=== PATIENT | male | born 2000 | race Hispanic/Latino ===

== ENCOUNTER 2025-02-16 11:14 | Inpatient (IN) | payer SELFPAY ==
--- OUTSIDE RECORDS SUMMARY | 2025-02-16 11:20 | XMS REPORT | Continuity of Care Document ---
Author Name Unknown Address [address] [facility] [address] [place] [address] [facility] Address [address] [facility] [address] [place] [address] Care Team Providers Care Slip Tender Name Role Phone Shawn Roa Attending Clinician Unavailable Arturo Carney Attending Clinician UnavailRik López Attending Clinician UnavailCiarra Vincent Attending Clinician Unavailable Noreen Vang Attending Clinician Unavailable Asif Betancourt Attending Clinician Unavailable Blanka Adams Attending Clinician Unavailable Arnav Martínez Attending Clinician Unavailable Physician, No Primary or Family Admitting Clinic evelyn Unavailable Payers Payer Name Policy Type Policy Number Effective Date Expirati on Date Source Allergies, Adverse Reactions, Alerts Allergy Name Allergy Type Status Severity Reaction(s) Onset Date Inactive Date Treating Clinician Comments Source No Known Allergie s DA Active U 02-21 00:00: 00 [facility] No Known Allergie s DA Active U 02-08 00:00: 00 [facility] No Known Allergie s DA Active U 2- 00:00: 00 [facility] No Known Allergie s DA Active U 0 8 00:00: 00 [facility] No Known Allergie s DA Active U 12-19 00:00: 00 [facility] No Known Allergie s DA Active U 10-29 00:00: 00 [facility] Social History Social Habit Start Date Stop Date Quantity Comments Source Sexual orientation [facility] Sex 2025-02-01 20:29:34 2025-02-01 20:29:34 Male (finding) [facility] Sex assigned at 2000 00:00:00 2000 00:00:00 [facility] Procedures Procedure Date / Time Performed Performing Clinicia n Source WOUND CULTURE + GRAM STAIN 2025-02-02 10:10:00 [facility] BLOOD CULTURE 2025-02-01 12:45:00 [facility] BLOOD CULTURE 2025-02-01 12:30:00 [facility] Encounters Start Date/Time End Date/Time Encounter Type Admission Type Attending [facility] Care Facility Care Department Encounter ID Source 2023-05-21 12:41:00 [id number] [facility] 2023-05-21 12:41:00 [facility] [id number] [facility] 2020-06-28 08:07:00 Inpatient [facility] [id number] [facility] 2020-02-13 23:40:00 Inpatient [facility] ER [id number] [facility] 2020-01-09 14:04:00 Inpatient [facility] ER [id number] [facility] 2025-02-02 00:00:00 2025-02-02 00:00:00 Lab Requisitio n [facility] [id number] [facility] 2025-02-01 00:00:00 2025-02-01 00:00:00 Lab Requisitio n [facility] [id number] [facility] 2025-02-01 00:00:00 2025-02-01 00:00:00 Lab Requisitio n [facility] [id number] [facility] 2024-12-13 22:13:00 2024-12-13 23:35:00 Emergency EM Rik Sneed [facility] ER [id number] [facility] 2024-02-15 11:11:00 2024-02-15 14:23:00 Emergency EM Ciarra Locke [facility] ER [id number] [facility] 2023-11-13 20:34:00 2023-11-13 22:48:00 Emergency EM Shawn Roa [facility] ER [id number] [facility] 2023-08-31 16:42:00 2023-08-31 18:39:00 Emergency EM Noreen Vang [facility] ER [id number] [facility] 2022-02-21 08:50:00 2022-02-21 09:58:00 Emergency EM Arturo Carney [facility] ER [id number] [facility] 2022-02-08 17:51:00 2022-02-08 18:32:00 Emergency EM Shawn Roa [facility] ER [id number] [facility] 2021-01-18 17:29:00 2021-01-18 19:45:00 Emergency EM Asif Betancourt [facility] ER [id number] [facility] 2020-11-16 18:01:00 2020-11-16 20:40:00 Emergency EM Blanka Adams [facility] ER [id number] [facility] 2020-11-15 05:54:00 2020-11-15 06:26:00 Emergency EM Arnav Martínez [facility] ER [id number] [facility] Results Test Description Test Time Test Comments Results Result Co mments Source Blood [id number] 03:01:05* Test Item Value Reference Range Interpretation Comme nts Result (test code = 6463-4) No growth in 5 days Lab Interpretation (test code = 37586-7) [id number] 03:01:05* Test Item Value Reference Range Interpretation Comme nts CULTURE (BEAKER) (test code = 1095) No growth in 5 days WOUND CULTURE + GRAM [id number] 11:08:20* Test Item Value Reference Range Interpretation Comments CULTURE (BEAKER) (test code = 1095) STAPHYLOCOCCUS AUREUS A 2+ Staphylococcus aureus Clindamycin (test code = 10) S Erythromycin (test code = 4) S Linezolid (test code = 40) S Nitrofurantoin (test code = 23) S Oxacillin (test code = 14) S Rifampin (test code = 43) S Tetracycline (test code = 2) S Trimethoprim + Sulfamethoxazole (test code = 47) S Vancomycin (test code = 13) S GRAM STAIN RESULT (BEAKER) (test code = 1123) <1+ WBCs GRAM STAIN RESULT (BEAKER) (test code = 656351) No organisms seen UA RFLX MICROSCOPIC [id number] 13:17:00* Test Item Value Reference Range Interpretation Comme nts UA COLOR (test code = COLU) YELLOW YELLOW UA APPEARANCE (test code = APPU) CLEAR CLEAR UA GLUCOSE DIPSTICK (test code = DGLUU) NEGATIVE mg/dL NEGATIVE UA BILIRUBIN DIPSTICK (test code = BILU) NEGATIVE NEGATIVE UA KETONE DIPSTICK (test code = KETU) NEGATIVE mg/dL NEGATIVE UA SPECIFIC GRAVITY (test code = SGU) 1.005 1.001-1.035 N UA BLOOD DIPSTICK (test code = DOMINICK) NEGATIVE NEGATIVE UA PH DIPSTICK (test code = TANIKA) 8.0 5.5-7.0 H UA PROTEIN DIPSTICK (test code = PROU) NEGATIVE mg/dL NEGATIVE UA UROBILINOGEN DIPSTICK (test code = URO) NORMAL mg/dL NORMAL UA NITRITE DIPSTICK (test code = SHANNA) NEGATIVE NEGATIVE UA LEUKOCYTE ESTERASE DIPSTICK (test code = LEUU) NEGATIVE NEGATIVE UA COMMENT (test code = COMU) VOLUME 10-12 ML URINE SPECIMEN DESCRIPTION (test code = UASPEC) Clean Catch UA WBC (test code = WBCU) < 10 #/hpf <10 UA SQUAMOUS CELLS (test code = SQU) 0 - 20 #/lpf <100 UA CULTURE NEEDED? (test code = UACULT) Criteria not met Indication for culture: RiskForSepsis-no oth srcURINE SOURCE: Clean CatchBASIC METABOLIC [id number] 12:39:00* Test Item Value Reference Range Interpretation Comme nts SODIUM (test code = NA) 139 MMOL/L 133-145 N POTASSIUM (test code = K) 4.6 MMOL/L 3.6-5.2 N CHLORIDE (test code = CL) 102 MMOL/L 100-108 N CARBON DIOXIDE (test code = CO2) 24 MMOL/L 22-32 N GLUCOSE (test code = GLU) 97 MG/DL 65-99 N Results of this assay method may be falsely depressed orelevated if patient is taking sulfasalazine. BLOOD UREA NITROGEN (test code = BUN) 13 MG/DL 6-20 N GLOMERULAR FILTRATION RATE (test code = GFR) 114 77-179 N The Glomerular Filtration Rate is a calculated parameterbased on serum Creatinine, patient age and sex. GFR valuesless than 60 mL/min/1.73 square meters are indicative ofChronic Kidney Disease. Values less than 15 mL/min/1.73square meters indicate Kidney failure. The calculation forGFR is based on the CKD-EPI (2020) calculation. This formulais race indifferent and is the recommended formula for GFRby the National Kidney Foundation for Adults.The GFR will not calculate if the sex is unknown or if thepatient's age is <18 years. CREATININE (test code = CREAT) 0.95 MG/DL 0.60-1.00 N CALCIUM (test code = CA) 9.2 MG/DL 8.7-10.5 N CPK-MB [id number] 12:39:00* Test Item Value Reference Range Interpretation Comme nts CK (test code = CKT) 158 Units/L 39-308 N CKMB (test code = CKMBT) < 0.5 NG/ML 0.0-3.6 N CKMB suggestive of non-AMI; MB Index is not reported. CKMB INDEX (test code = CKMBI) % 0.0-2.4 CBC W/AUTO [id number] 12:15:00* Test Item Value Reference Range Interpretation Comme nts WHITE BLOOD CELL (test code = WBC) 10.39 x10 3/uL 4.80-10.80 N RED BLOOD CELL (test code = RBC) 5.84 x10 6/uL 4.7-6.1 N HEMOGLOBIN (test code = HGB) 16.7 G/DL 14.0-17.0 N HEMATOCRIT (test code = HCT) 50.0 % 42-52 N MEAN CELL VOLUME (test code = MCV) 85.6 FL 80-94 N MEAN CELL HGB (test code = MCH) 28.6 PG 27-31 N MEAN CELL HGB CONCENTRATION (test code = MCHC) 33.4 G/DL 33-37 N RED CELL DISTRIBUTION WIDTH (test code = RDW) 13.2 % 11.5-14.5 N PLATELET COUNT (test code = PLT) 257 x10 3/uL 150-450 N MEAN PLATELET VOLUME (test code = MPV) 10.6 FL 7.4-10.4 H NEUTROPHIL % (test code = NT%) 71.7 % 42-86 N LYMPHOCYTE % (test code = LY%) 21.2 % 24-44 L MONOCYTE % (test code = MO%) 6.5 % 0.0-4.0 H EOSINOPHIL % (test code = EO%) 0.4 % 0.0-2.7 N BASOPHIL % (test code = BA%) 0.2 % 0.0-0.5 N NEUTROPHIL # (test code = NT#) 7.45 x10 3/uL 1.8-7.7 N LYMPHOCYTE # (test code = LY#) 2.20 x10 3/uL 1.0-4.8 N MONOCYTE # (test code = MO#) 0.68 x10 3/uL 0.0-0.8 N EOSINOPHIL # (test code = EO#) 0.04 x10 3/uL 0.0-0.5 N BASOPHIL # (test code = BA#) 0.02 x10 3/uL 0.0-0.2 N MANUAL DIFF REQUIRED (test code = MDIFF) AUTODIFF VERIFIED TECH REVIEW Auto Differential verified by tech review of smear. UA RFLX MICROSCOPIC [id number] 23:35:00* Test Item Value Reference Range Interpretation Comme nts UA COLOR (test code = COLU) YELLOW YELLOW UA APPEARANCE (test code = APPU) CLEAR CLEAR UA GLUCOSE DIPSTICK (test code = DGLUU) NEGATIVE mg/dL NEGATIVE UA BILIRUBIN DIPSTICK (test code = BILU) NEGATIVE NEGATIVE UA KETONE DIPSTICK (test code = KETU) 15 mg/dL NEGATIVE A UA SPECIFIC GRAVITY (test code = SGU) 1.025 1.001-1.035 N UA BLOOD DIPSTICK (test code = DOMINICK) NEGATIVE NEGATIVE UA PH DIPSTICK (test code = TANIKA) 5.0 5.5-7.0 L UA PROTEIN DIPSTICK (test code = PROU) 15 mg/dL NEGATIVE A UA UROBILINOGEN DIPSTICK (test code = URO) 1.0 mg/dL NORMAL UA NITRITE DIPSTICK (test code = SHANNA) NEGATIVE NEGATIVE UA LEUKOCYTE ESTERASE DIPSTICK (test code = LEUU) 25 NEGATIVE A UA COMMENT (test code = COMU) VOLUME 10-12 ML URINE SPECIMEN DESCRIPTION (test code = UASPEC) Clean Catch UA WBC (test code = WBCU) < 10 #/hpf <10 UA SQUAMOUS CELLS (test code = SQU) 0 - 20 #/lpf <100 UA CULTURE NEEDED? (test code = UACULT) Criteria not met Indication for culture: Flank PainURINE SOURCE: Clean CatchUA MICROSCOPIC 2023-11-13 23:35:00* Test Item Value Reference Range Interpretation Comme nts UA RBC (test code = RBCU) None Seen #/hpf NONE SEEN Indication for culture: Flank PainURINE SOURCE: Clean CatchDRUG OF ABUSE SCREEN [id number] 21:56:00* Test Item Value Reference Range Interpretation Comments UR COCAINE (test code = COCAU) NEGATIVE NEGATIVE UR MDMA (test code = MDMAQLU) NEGATIVE NEGATIVE UR CANNABINOIDS (test code = CANU) POSITIVE NEGATIVE A If confirmato ry testing required, contact laboratory. UR AMPHETAMINE (test code = AMPHU) NEGATIVE NEGATIVE UR BARBITURATE QUAL (test code = BARBQLU) NEGATIVE NEGATIVE UR BENZODIAZEPINE (test code = BENZU) NEGATIVE NEGATIVE UR OPIATES QUAL (test code = OPIAQLU) NEGATIVE NEGATIVE UR PHENCYCLIDINE (PCP) (test code = PHENCU) NEGATIVE NEGATIVE Urine Drug Abuse Screen provides preliminary results thatmay be confirmed by alternate methods (i.e., GC/MS) at [facility]. Results of screen may not be usedin criminal justice, job performance or professionalcredential review, or infant custody issues. Negative [place] Level ng/ml ----- Cocaine 300 Methamphetamine (Ecstacy) 500 Cannabinoids (THC) 50 Amphetamine 1000 Barbiturates 200 Benzodiazepines 200 Opiates 300 Phencyclidine (PCP) 25 COMPREHENSIVE METABOLIC [id number] 21:56:00* Test Item Value Reference Range Interpretation Comme nts SODIUM (test code = NA) 140 MMOL/L 133-145 N POTASSIUM (test code = K) 3.4 MMOL/L 3.6-5.2 L CHLORIDE (test code = CL) 103 MMOL/L 100-108 N CARBON DIOXIDE (test code = CO2) 29 MMOL/L 22-32 N GLUCOSE (test code = GLU) 107 MG/DL 65-99 H Results of this assay method may be falsely depressed orelevated if patient is taking sulfasalazine. BLOOD UREA NITROGEN (test code = BUN) 12 MG/DL 6-20 N GLOMERULAR FILTRATION RATE (test code = GFR) 97 77-179 N The Glomerular Filtration Rate is a calculated parameterbased on serum Creatinine, patient age and sex. GFR valuesless than 60 mL/min/1.73 square meters are indicative ofChronic Kidney Disease. Values less than 15 mL/min/1.73square meters indicate Kidney failure. The calculation forGFR is based on the CKD-EPI (202) calculation. This formulais race indifferent and is the recommended formula for GFRby the National Kidney Foundation for Adults.The GFR will not calculate if the sex is unknown or if thepatient's age is <18 years. CREATININE (test code = CREAT) 1.09 MG/DL 0.60-1.00 H TOTAL PROTEIN (test code = PROT) 7.5 G/DL 6.4-8.2 N ALBUMIN (test code = ALB) 4.1 G/DL 3.4-5.0 N GLOBULIN (test code = GLOB) 3.4 G/DL 1.5-3.8 N ALBUMIN/GLOBULIN RATIO (test code = A/G) 1.2 1.1-2.2 N CALCIUM (test code = CA) 9.1 MG/DL 8.7-10.5 N BILIRUBIN TOTAL (test code = BILT) 0.8 MG/DL 0.0-1.0 N SGOT/AST (test code = AST) 11 Units/L 15-37 L Results of this assay method may be falsely depressed orelevated if patient is taking sulfasalazine. SGPT/ALT (test code = ALT) 18 Units/L 30-65 L Results of this assay method may be falsely depressed orelevated if patient is taking sulfasalazine. ALKALINE PHOSPHATASE TOTAL (test code = ALKP) 79 Units/L 50-136 N [id number] 21:56:00* Test Item Value Reference Range Interpretation Comme nts LIPASE (test code = LIP) 20 U/L 16-77 N New Reference Ranges of 16-77 U/L please reviewrevised from 73-393 U/L on 03/13/2023 - CT ABD PELVIS [id number] 21:49:00 [facility] 2000 Sex: M Patient Name: SAI PÉREZ Unit No: [id number] EXAMS: CPT CODE: [id number] CT ABD PELVIS W/CONT 16421 Reason: ABD PAIN LOCATION: Q15 HISTORY: 23-year-old male presents with abdominal pain. COMMENT: Axial CT imaging of this patient's abdomen and pelvis was obtained with IV contrast. Coronal and sagittal soft tissue reconstructions were included. Unless otherwise specified, incidental findings do not require dedicated imaging follow-up. One or more of the following dose reduction techniques are used: Automated exposure control, adjustment of the mA and/or kV according the patient size, and/or utilization of iterative reconstruction technique. CONTRAST: 100 mL of Isovue-300 nonionic contrast was injected into the right antecubital vein. The estimated GFR was greater than 60 mL/m. FINDINGS: The lung bases are clear. The cardiac silhouette is unremarkable. The liver, spleen, pancreas, adrenal glands, kidneys, and gallbladder are unremarkable. The upper intestinal tract is unremarkable. No s mall intestinal abnormalities are seen. A normal-appearing appendix is seen. The colon is unremarkable. There is no ascites or adenopathy present. In the pelvis the urinary bladder, prostate gland, and seminal vesicles are unremarkable. The vascular anatomy is unremarkable. The musculoskeletal anatomy is unremarkable. IMPRESSION: Unremarkable CT examination of the abdomen and pelvis per Electronic ally signed by: Ja Abebe MD 11/13/2023 09:49 PM CDT RP - [id number] at 2148 Reported and signed by: Ja Abebe MD CC:Shawn Roa III DO Technologist: Fred HARDING Trscrpt Dt/ (2148)[id number] Orig Print D/T: S: 11/13/2023 (2150) CTDI: DLP: [facility] NAME: SAI PÉREZ [address] [place] [address] PHYS: Shawn Sebastian II [address] : 2000 AGE: 23 SEX: M [place], [place] [address] LOC: D.PER PHONE #: [phone] EXAM DATE: 11/13/2023 STATUS: PRE ER FAX #: RAD NO: DC Dt: PAGE 1 Signed ReportCBC W/AUTO [id number] 21:38:00* Test Item Value Reference Range Interpretation Comme nts WHITE BLOOD CELL (test code = WBC) 9.32 x10 3/uL 4.80-10.80 N RED BLOOD CELL (test code = RBC) 4.94 x10 6/uL 4.7-6.1 N HEMOGLOBIN (test code = HGB) 14.1 G/DL 14.0-17.0 N HEMATOCRIT (test code = HCT) 42.0 % 42-52 N MEAN CELL VOLUME (test code = MCV) 85.0 FL 80-94 N MEAN CELL HGB (test code = MCH) 28.5 PG 27-31 N MEAN CELL HGB CONCENTRATION (test code = MCHC) 33.6 G/DL 33-37 N RED CELL DISTRIBUTION WIDTH (test code = RDW) 12.5 % 11.5-14.5 N PLATELET COUNT (test code = PLT) 280 x10 3/uL 150-450 N NO PLATELET CLUM PS SEEN MEAN PLATELET VOLUME (test code = MPV) 10.5 FL 7.4-10.4 H NEUTROPHIL % (test code = NT%) 68.4 % 42-86 N LYMPHOCYTE % (test code = LY%) 23.7 % 24-44 L MONOCYTE % (test code = MO%) 6.4 % 0.0-4.0 H EOSINOPHIL % (test code = EO%) 1.2 % 0.0-2.7 N BASOPHIL % (test code = BA%) 0.3 % 0.0-0.5 N NEUTROPHIL # (test code = NT#) 6.37 x10 3/uL 1.8-7.7 N LYMPHOCYTE # (test code = LY#) 2.21 x10 3/uL 1.0-4.8 N MONOCYTE # (test code = MO#) 0.60 x10 3/uL 0.0-0.8 N EOSINOPHIL # (test code = EO#) 0.11 x10 3/uL 0.0-0.5 N BASOPHIL # (test code = BA#) 0.03 x10 3/uL 0.0-0.2 N MANUAL DIFF REQUIRED (test code = MDIFF) AUTODIFF VERIFIED TECH REVIEW Auto Differential verified by tech review of smear. - XR T-SPINE 2 [id number] 18:01:00 [facility] : 2000 Sex: M Patient Name: SAI PÉREZ Unit No: [id number] EXAMS: CPT CODE: [id number] XR T-SPINE 2 VIEWS [id number]: PAIN EXAMINATION: - XR T-SPINE 2 VIEWS CLINICAL INDICATION: Male, 23 years old with PAIN COMPARISON: None FINDINGS: Two view(s) of the thoracic spine obtained. Surgery: No surgical change. Alignment: Mild levoscoliosis. Bones: Vertebral body heights are maintained. No aggressive osseous lesions. Discs: Disc heights are maintained. Soft Tissue: No soft tissue abnormalities. IMPRESSION: No acute thoracic spine abnormality. Mild levoscoliosis. Electronically Signed by Frantz Mulligan 08/31/2023 at 1801 Reported and signed by: Frantz Andrews MD CC: John ROCK, JEWELRY MECHANIC, ELECTRONIC SCALE TESTER Sukhi; Noreen Vang MD Technologist: Christal Carrington solar sales representative Trscrpt Dt/ (1800)t.[email or web address] Orig Print D/T: S: 08/31/2023 (1803) [place] [facility] NAME: SAI PÉREZ [facility] [address] [place] [address] PHYS: Noreen Mcdowell MD [address] : 2000 AGE: 23 SEX: M [place], [place] [address] LOC: D.PER PHONE #: [phone] EXAM DATE: 08/31/2023 STATUS: REG ER FAX #: RAD NO: DCDt: PAGE 1 Signed Report- XR RIBS UNI W/CXR 3+V [id number] 09:33:00 [facility] : 2000 Sex: M Patient Name: SAI PÉREZ Unit No: [id number] EXAMS: CPT CODE: [id number] XR RIBS UNI W/CXR 3+V [id number] Reason: trauma EXAM: Chest and left rib series, 4 views Dictation location: H10 INDICATION: Trauma, ribs COMPARISON: Chest and left rib series on 02/08/2022. DISCUSSION: An expiratory frontal view of the chest and frontal and oblique views of the left ribs are submitted. No consolidation, pleural effusion, or pneumothorax is seen. The cardiomediastinal silhouette is within normal limits. No displaced rib fracture or focal rib lesion is seen. IMPRESSION: No evidence of rib fracture or otheracute abnormality. at 0933 Reported and signed by: Arnav Fishman MD CC: Arturo Carney MD Technologist: Kait Gabriel RT CT; Polo Argueta Students Trscrpt Dt/ (932)t.SDR.BC0 Orig Print D/T: S: 02/21/2022 (0936) [facility] [place] [facility] NAME: PÉREZ,SAI [address] [place] [address] PHYS: Arturo Marks MD [address] :2000 AGE: 21 SEX: M [place], [place] [address] LOC: D.PER PHONE #: [phone] EXAM DATE: 02/21/2022 STATUS: REG ER FAX #: RAD NO: DC Dt: PAGE 1 Signed Report- XR RIBS UNI W/CXR 3+V [id number] 09:33:00 [facility] : 2000 Sex: M Patient Name: SAI PÉREZ Unit No: [id number] EXAMS: CPT CODE: [id number] XR RIBS UNI W/CXR 3+[place] [id number] Reason: trauma EXAM: Chest and left rib series, 4 views Dictation location: H10 INDICATION: Trauma, ribs COMPARISON: Chest and left rib series on 02/08/2022. DISCUSSION: An expiratory frontal view of the chest and frontal and oblique views of the left ribs are submitted. No consolidation, pleural effusion, or pneumothorax is seen. The cardiomediastinal silhouette is within normal limits. No displaced rib fracture or focal rib lesion is seen. IMPRESSION: No evidence of rib fracture or other acute abnormality. at 0933 Reported and signed by: Arnav Fishman MD CC: Arturo Carney MD Technologist: Kait Gabriel RT CT; Polo Argueta Students Trscrpt Dt/ (932)t.SDR.BC0 Orig Print D/T: S: 02/21/2022 (0936) [place] [facility] NAME: SAI PÉREZ [facility] [address] [place] [address] PHYS: Arturo Marks MD [address] : 2000 AGE: 21 SEX: M [place], [place] [address] LOC: UNK PHONE #: [phone] EXAM DATE: 02/21/2022 STATUS: DEP ER FAX #: RAD NO: DC Dt: PAGE 1 Signed Report- XR RIBS UNI W/CXR 3+V [id number] 18:18:00 [facility] : 2000 Sex: M Patient Name: SAI PÉREZ Unit No: [id number] EXAMS: CPT CODE: [id number] XR RIBS UNI W/CXR 3+[place] [id number] Reason: FALL ON RIBS LAST NIGHT Location: C3 EXAM: - XR RIBS UNI W/CXR 3+V LT INDICATION: FALL ON RIBS LAST NIGHT COMPARISON: 10/29/2014. TECHNIQUE: Frontal and oblique views of the left ribs sofi single PA view of the chest FINDINGS: No displaced rib fracture or other acute bony abnormality is identified. Within the chest, no focal consolidation. Bilateral costophrenic sulci are sharp. No appreciable pneumothorax. Heart size is within normal limits. Pulmonary vascularity is normal. IMPRESSION: 1. No displaced rib fracture. 2. No radiographic evidence of acute cardiopulmonary abnormality. at 1818 Reported and signed by: Adam Niño MD CC: Nanci Snell WIRE LOOP MACHINE OPERATOR; Arturo Carney MD Technologist: RT Mae Trscrpt Dt/ (1817)t.SDR.GS29 Orig Print D/T: S: 02/08/2022 (182) [place] FS NAME: SAI PÉREZ [facility] [address] [place] [address] PHYS: Arturo Marks MD [address] : 2000 AGE: 21 SEX: M [place], [place] [address] LOC: D.PER PHONE #: [phone] EXAMDATE: 02/08/2022 STATUS: REG ER FAX #: RAD NO: DC Dt: PAGE 1 Signed Report- XR RIBS UNI W/CXR 3+V [id number] 18:18:00 [facility] : 2000 Sex: M Patient Name: SAI PÉREZ Unit No: [id number] EXAMS: CPT CODE: [id number] XR RIBS UNI W/CXR 3+[place] [address] Reason: FALL ON RIBS LAST NIGHT Location: C3 EXAM: - XR RIBS UNI W/CXR 3+V LT INDICATION: FALL ON RIBS LAST NIGHT COMPARISON: 10/29/2014. TECHNIQUE: Frontal and oblique views of the left ribs and a single PA view of the chest FINDINGS: No displaced rib fracture or other acute bony abnormalityis identified. Within the chest, no focal consolidation. Bilateral costophrenic sulci are sharp. Noappreciable pneumothorax. Heart size is within normal limits. Pulmonary vascularity is normal. IMPRESSION: 1. No displaced rib fracture. 2. No radiographic evidence of acute cardiopulmonary abnormality. at 1818 Reported and signed by: Adam Niño MD CC: Nanci Snell WIRE LOOP MACHINE OPERATOR; Arturo Carney MD Technologist: Yasmin Miranda, RT Trscrpt Dt/ (181)[email or web address] Orig Print D/T: S: 02/08/2022 (182) [place] [facility] NAME: SAI PÉREZ [facility] [address] PHYS: Arturo Marks MD [address] : 2000 AGE: 21 SEX: M [place], [place] [address] LOC: UNK PHONE #: [phone] EXAM DATE: 02/08/2022 STATUS: DEP ER FAX #: RAD NO: DC Dt: PAGE 1 Signed Report- XR HAND 3+V [id number] 21:25:00 [facility] : 2000 Sex: M Patient Name: SAI PÉREZ Unit No: [id number] EXAMS: CPT CODE: [id number] XR HAND 3+V LT 65143 Reason: PUNCHED WALL, PAIN Examination: Left hand 3 views Location code: H60 Comparison: None Discussion: Clinical history is remarkable for trauma. Patient punched wall. There is a fracture of the 5th metacarpal bone. No additional fractures are noted. No other bony or soft tissue abnormalities identified. Impression: 1. Fracture of the 5th metacarpal bone. at 2125 Reported and signed by: Khari Tejada MD CC: John Isbell WIRE LOOP MACHINE OPERATOR; Blanka Morejon Technologist: Kait Gabriel RT CT Trscrpt Dt/ (2124)[email or web address] Orig Print D/T: S: 11/16/2020 (2127) [place] FSED NAME: SAI PÉREZ [facility] [address] PHYS: Blanka Judge MD [address] : 2000 AGE: 20 SEX: M [place], [place] [address] LOC: ChiquitaPER PHONE #: [phone] EXAM DATE: 11/16/2020 STATUS: DEP ER FAX #: RAD NO: DC Dt: PAGE 1 Signed Report UA RFLX [id number] 09:16:00* Test Item Value Reference Range Interpretation Comme nts UA COLOR (test code = COLU) YELLOW YELLOW UA APPEARANCE (test code = APPU) CLEAR CLEAR UA GLUCOSE DIPSTICK (test code = DGLUU) NEGATIVE mg/dL NEGATIVE UA BILIRUBIN DIPSTICK (test code = BILU) NEGATIVE NEGATIVE UA KETONE DIPSTICK (test cod e = KETU) NEGATIVE mg/dL NEGATIVE UA SPECIFIC GRAVITY (test code = SGU) 1.015 1.001-1.035 N UA BLOOD DIPSTICK (test code = DOMINICK) NEGATIVE NEGATIVE UA PH DIPSTICK (test code = TANIKA) 8.0 5.5-7.0 H UA PROTEIN DIPSTICK (test code = PROU) NEGATIVE mg/dL NEGATIVE UA UROBILINOGEN DIPSTICK (test code = URO) NORMAL mg/dL NORMAL UA NITRITE DIPSTICK (test code = SHANNA) NEGATIVE NEGATIVE UA LEUKOCYTE ESTERASE DIPSTICK (test code = LEUU) TRACE NEGATIVE A UA COMMENT (test code = COMU) VOLUME 10-12 ML URINE SPECIMEN DESCRIPTION (test code = UASPEC) Clean Catch UA [id number] 09:16:00* Test Item Value Reference Range Interpretation Comme nts UA WBC (test code = WBCU) < 10 #/hpf <10 UA RBC (test code = RBCU) 0-2 #/hpf NONE SEEN A UA BACTERIA (test code = BACU) RARE #/hpf NONE SEEN UA SQUAMOUS CELLS (test code = SQU) 0 - 20 #/lpf <100 UA MUCUS (test code = MUCU) RARE #/lpf NONE SEEN UA CULTURE NEEDED? (test code = UACULT) Criteria not met DRUG OF ABUSE SCREEN [id number] 09:11:00* Test Item Value Reference Range Interpretation Comments UR COCAINE (test code = COCAU) NEGATIVE NEGATIVE UR MDMA (test code = MDMAQLU) NEGATIVE NEGATIVE UR CANNABINOIDS (test code = CANU) POSITIVE NEGATIVE A If confirmato ry testing required, contact laboratory. UR AMPHETAMINE (test code = AMPHU) NEGATIVE NEGATIVE UR BARBITURATE QUAL (test code = BARBQLU) NEGATIVE NEGATIVE UR BENZODIAZEPINE (test code = BENZU) NEGATIVE NEGATIVE UR OPIATES QUAL (test code = OPIAQLU) NEGATIVE NEGATIVE UR PHENCYCLIDINE (PCP) (test code = PHENCU) NEGATIVE NEGATIVE Urine Drug Abuse Screen provides preliminary results thatmay be confirmed by alternate methods (i.e., GC/MS) at [facility]. Results of screen may not be usedin criminal justice, job performance or professionalcredential review, or custody issues. Negative [place] Level ng/ml ----- Cocaine 300 Methamphetamine (Ecstacy) 500 Cannabinoids (THC) 50 Amphetamine 1000 Barbiturates 200 Benzodiazepines 200 Opiates 300 Phencyclidine (PCP) 25 UA RFLX [id number] 09:05:00* Test Item Value Reference Range Interpretation Comme nts UA COLOR (test code = COLU) YELLOW YELLOW UA APPEARANCE (test code = APPU) CLEAR CLEAR UA GLUCOSE DIPSTICK (test code = DGLUU) NEGATIVE mg/dL NEGATIVE UA BILIRUBIN DIPSTICK (test code = BILU) NEGATIVE NEGATIVE UA KETONE DIPSTICK (test cod e = KETU) NEGATIVE mg/dL NEGATIVE UA SPECIFIC GRAVITY (test code = SGU) 1.015 1.001-1.035 N UA BLOOD DIPSTICK (test code = DOMINICK) NEGATIVE NEGATIVE UA PH DIPSTICK (test code = TANIKA) 8.0 5.5-7.0 H UA PROTEIN DIPSTICK (test code = PROU) NEGATIVE mg/dL NEGATIVE UA UROBILINOGEN DIPSTICK (test code = URO) NORMAL mg/dL NORMAL UA NITRITE DIPSTICK (test code = SHANNA) NEGATIVE NEGATIVE UA LEUKOCYTE ESTERASE DIPSTICK (test code = LEUU) TRACE NEGATIVE A UA COMMENT (test code = COMU) VOLUME 10-12 ML URINE SPECIMEN DESCRIPTION (test code = UASPEC) Clean Catch UA [id number] 09:05:00* Test Item Value Reference Range Interpretation Comme nts UA WBC (test code = WBCU) #/hpf <10 UA RBC (test code = RBCU) #/hpf NONE SEEN UA SQUAMOUS CELLS (test code = SQU) #/lpf <100 UA CULTURE NEEDED? (test code = UACULT) UA RFLX [id number] 09:05:00* Test Item Value Reference Range Interpretation Comme nts UA COLOR (test code = COLU) YELLOW YELLOW UA APPEARANCE (test code = APPU) CLEAR CLEAR UA GLUCOSE DIPSTICK (test code = DGLUU) NEGATIVE mg/dL NEGATIVE UA BILIRUBIN DIPSTICK (test code = BILU) NEGATIVE NEGATIVE UA KETONE DIPSTICK (test cod e = KETU) NEGATIVE mg/dL NEGATIVE UA SPECIFIC GRAVITY (test code = SGU) 1.015 1.001-1.035 N UA BLOOD DIPSTICK (test code = DOMINICK) NEGATIVE NEGATIVE UA PH DIPSTICK (test code = TANIKA) 8.0 5.5-7.0 H UA PROTEIN DIPSTICK (test code = PROU) NEGATIVE mg/dL NEGATIVE UA UROBILINOGEN DIPSTICK (test code = URO) NORMAL mg/dL NORMAL UA NITRITE DIPSTICK (test code = SHANNA) NEGATIVE NEGATIVE UA LEUKOCYTE ESTERASE DIPSTICK (test code = LEUU) TRACE NEGATIVE A UA COMMENT (test code = COMU) VOLUME 10-12 ML URINE SPECIMEN DESCRIPTION (test code = UASPEC) Clean Catch UA [id number] 09:05:00* Test Item Value Reference Range Interpretation Comme nts UA WBC (test code = WBCU) #/hpf <10 UA RBC (test code = RBCU) #/hpf NONE SEEN UA SQUAMOUS CELLS (test code = SQU) #/lpf <100 UA CULTURE NEEDED? (test code = UACULT) BASIC METABOLIC [id number] 08:47:00* Test Item Value Reference Range Interpretation Comme nts SODIUM (test code = NA) 141 MMOL/L 133-145 N POTASSIUM (test code = K) 4.4 MMOL/L 3.6-5.2 N CHLORIDE (test code = CL) 105 MMOL/L 100-108 N CARBON DIOXIDE (test code = CO2) 28 MMOL/L 22-32 N GLUCOSE (test code = GLU) 92 MG/DL 65-99 N Results of this assay method may be falsely depressed orelevated if patient is taking sulfasalazine. BLOOD UREA NITROGEN (test code = BUN) 13 MG/DL 6-20 N GLOMERULAR FILTRATION RATE (test code = GFR) 104 77-179 N Reporting units: mL/min/1.73m\\S\\2 (Modified MDRD Formula) CREATININE (test code = CREAT) 0.91 MG/DL 0.60-1.00 N CALCIUM (test code = CA) 8.8 MG/DL 8.7-10.5 N [id number] 08:47:00* Test Item Value Reference Range Interpretation Comme nts TROPONIN-I (test code = TROPI) < 0.04 NG/ML 0.00-0.06 N - The use of ser ial sampling and testing protocol is a recommended practice.- An elevated troponin level alone is often not sufficient for diagnosis of myocardial infarction.Results of this assay method may be falsely depressed orelevated if patient is taking high doses of Biotin. BASIC METABOLIC [id number] 08:39:00* Test Item Value Reference Range Interpretation Comme nts SODIUM (test code = NA) 141 MMOL/L 133-145 N POTASSIUM (test code = K) 4.4 MMOL/L 3.6-5.2 N CHLORIDE (test code = CL) 105 MMOL/L 100-108 N CARBON DIOXIDE (test code = CO2) 28 MMOL/L 22-32 N GLUCOSE (test code = GLU) 92 MG/DL 65-99 N Results of this assay method may be falsely depressed orelevated if patient is taking sulfasalazine. BLOOD UREA NITROGEN (test code = BUN) 13 MG/DL 6-20 N GLOMERULAR FILTRATION RATE (test code = GFR) 104 77-179 N Reporting units: mL/min/1.73m\\S\\2 (Modified MDRD Formula) CREATININE (test code = CREAT) 0.91 MG/DL 0.60-1.00 N CALCIUM (test code = CA) 8.8 MG/DL 8.7-10.5 N [id number] 08:39:00* Test Item Value Reference Range Interpretation Comme nts TROPONIN-I (test code = TROPI) NG/ML 0.00-0.06 CBC W/AUTO [id number] 08:34:00* Test Item Value Reference Range Interpretation Comme nts WHITE BLOOD CELL (test code = WBC) 8.09 x10 3/uL 4.80-10.80 N RED BLOOD CELL (test code = RBC) 5.26 x10 6/uL 4.7-6.1 N HEMOGLOBIN (test code = HGB) 15.4 G/DL 14.0-17.0 N HEMATOCRIT (test code = HCT) 45.5 % 42-52 N MEAN CELL VOLUME (test code = MCV) 86.5 FL 80-94 N MEAN CELL HGB (test code = MCH) 29.3 PG 27-31 N MEAN CELL HGB CONCENTRATION (test code = MCHC) 33.8 G/DL 33-37 N RED CELL DISTRIBUTION WIDTH (test code = RDW) 13.5 % 11.5-14.5 N PLATELET COUNT (test code = PLT) 264 x10 3/uL 150-450 N MEAN PLATELET VOLUME (test c ode = MPV) 10.4 FL 7.4-10.4 N NEUTROPHIL % (test code = NT%) 60.9 % 42-86 N LYMPHOCYTE % (test code = LY%) 28.3 % 24-44 N MONOCYTE % (test code = MO%) 8.2 % 0.0-4.0 H EOSINOPHIL % (test code = EO%) 2.2 % 0.0-2.7 N BASOPHIL % (test code = BA%) 0.4 % 0.0-0.5 N NEUTROPHIL # (test code = NT#) 4.93 x10 3/uL 1.8-7.7 N LYMPHOCYTE # (test code = LY#) 2.29 x10 3/uL 1.0-4.8 N MONOCYTE # (test code = MO#) 0.66 x10 3/uL 0.0-0.8 N EOSINOPHIL # (test code = EO#) 0.18 x10 3/uL 0.0-0.5 N BASOPHIL # (test code = BA#) 0.03 x10 3/uL 0.0-0.2 N - XR HAND 2 V [id number] 00:04:00Patient Name: SAI PÉREZ Unit No: [id number] EXAMS: CPT CODE: [id number] XR HAND 2 V LT [address] Reason: TRAUMA PROCEDURE INFORMATION: Exam: XR Left Hand Exam date and time: 02/14/2020 12:00 AM Age: 19 years old Clinical indication: Injury or trauma; Fall; Initial encounter; Blunt trauma (contusions or hematomas) and sprain or strain and swelling (edema); Hand; Left TECHNIQUE: Imaging protocol: XR Left hand. Views: 1 or 2 views. COMPARISON: CR XR HAND 3+V LT 01/11/2014 1:05 AM FINDINGS: Bones/chris nts: Normal. Soft tissues: Normal. IMPRESSION: No acute findings. INTERNAL CODING PURPOSES ONLY RESULT CODE: CVR at 0004 Reported and signed by: Hansel UREÑA CC: Bahman Bryant echnologist: Pierre Teresa RT CT Trscrpt Dt/ (3)SIMONE.VR Orig Print D/T: S: 02/14/2020 (3) [facility] NAME: SAI PÉREZ [address] [place] [address] PHYS: Bahman Christensen MD [address] : 2000 AGE: 19 SEX: M [place], [place] [address] LOC: D.PER PHONE#: [phone] EXAM DATE: 02/13/2020 STATUS: PRE ER FAX #: RAD NO: DC Dt: PAGE 1 Signed Report- CT CHEST [id number] 09:10:00Patient Name: SAI PÉREZ Unit No: [id number] Report Has Been Amended EXAMS: CPT CODE: [id number] CT CHEST W/CONTRAST 17414 Reason: painful swelling left breast Addendum - 12/23/2018 SIGNED 12/23/2018 ADDENDUM: [id number] CT/CTCHESTW Addendum created by Wyatt Hamlin MD on 12/23/2018 9:10:03 AMCDT THIS REPORT CONTAINS FINDINGS THAT MAY BE CRITICAL TO PATIENT CARE. The findings were verbally c ommunicated via telephone conference with DR. RIVERA at 9:03 AM CDT on 12/23/2018. The findings were acknowledged and understood. He indicated there are no clinical signs of inflammation or infection. 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 Initial report created on 12/23/2018 9:08:06 AM CDT EXAM: CT Chest With Contrast EXAM DATE/TIME: 12/23/2018 6:59 AM CLINICAL HISTORY: 18 years old, male; Left breast swelling. TECHNIQUE: Imaging protocol: Axial computed tomography images of the chest with intravenous contrast. Coronal and sagittal reformatted images were created and reviewed. Radiation optimization: All CT scans at this facility use at least one of these dose optimization techniques: automated exposure control; mA and/or kV adjustment per patient size (includes targeted exams where dose is matched to clinical indication); or iterative reconstruction. Contrast material: ISOVUE 370;Contrast volume: 80 ml;Contrast route: IV; COMPARISON: CR XR CHEST 2V 10/29/2014 5:23 PM FINDINGS: Lungs: No acute lung consolidation or pulmonary ed cate. Pleural space: No pleural effusion or pneumothorax. Heart: The heart is not enlarged. No pericardial effusion. Pulmonary arteries: No central pulmonary embolism. Aorta: No thoracic aortic aneurysm or dissection. Great vessels off aortic arch: No major aortic branch vessel stenosis or occlusion. Lymph nodes: No pathologically enlarged lymph nodes. Bones/joints: No acute osseous abnormality. Soft tissues: There is focal increased attenuation and mass effect of the subcutaneous tissue in theleft breast given the patient's age and gender. There is a similar change on the right but to a much less degree. The findings are most likely due to asymmetric gynecomastia. No fluid collection identified. No skin thickening. IMPRESSION: Asymmetric gynecomastia, worse on the left, cause uncertain.[facility] NAME: SAI PÉREZ [address] [place] [address] PHYS: Vazquez Asher III, MD [address] : 2000 AGE: 18 SEX: M [place], [place] [address] LOC: DSanjuanaPER PHONE #: [phone] EXAM DATE: 12/23/2018 STATUS: REG ER FAX #: RAD NO: DC Dt: PAGE 1 Signed Report (CONTINUED) Patient Name: SAI PÉREZ Unit No: [id number] Report Has Been Amended EXAMS: CPT CODE: [id number] CT CHEST W/CONTRAST 93221 (Continued) Reason: painful swelling left breast at 0910 Reported and signed by: Wyatt Ureña Report - CT CHEST W/CONTRAST 12/23/2018 6:03 AM Indication: Left breast swelling COMPARISON: None TECHNIQUE: Scanning of the chest after unspecified type and quantity of contrast by the tech.FINDINGS: There is asymmetric subcutaneous breast tissue left much larger than right. I see no focal fluid collection nor ring enhancement and no gas bubbles that would suggest abscess. Work up mammography is needed in this case. The lungs are clear. No effusions. No axillary, mediastinal nor hilarlymphadenopathy. Bone windows and Limited views upper abdomen organs look unremarkable. Impression:Asymmetric breast tissue. Workup mammography needed. Please note, study made available for reading 0856 hours at 0858 Reported and signed by: Stewart [place] MD CC: Vazquez Jones III, MD Technologist: Pierre Teresa RT CT Trscrpt Dt/ (0858)t.SDR.PKE Orig Print D/T: S: 12/23/2018 (0901) CTDI: DLP: [facility] NAME: SAI PÉREZ [address] [place] [address] PHYS: Vazquez Asher III, MD [address] : 2000 AGE: 18 SEX: M [place], [place] [address] LOC: D.PER PHONE #: [phone] EXAM DATE: 12/23/2018 STATUS: REG ER FAX #: RAD NO: DC Dt: PAGE 2 Signed Report- CT CHEST [id number] 08:58:00Patient Name: SAI PÉREZ Unit No: [id number] EXAMS: CPT CODE: [id number] CT CHEST W/CONTRAST 34655 Reason: painful swelling left breast - CT CHEST W/CONTRAST 12/23/2018 6:03 AM Indication: Left breast swelling COMPARISON: None TECHNIQUE: Scanning of the chest after unspecified type and quantity of contrast by the tech. FINDINGS: There is asymmetric subcutaneous breast tissue left much larger than right. I see no focal fluid collection nor ring enhancement and no gas bubbles that would suggest abscess. Work up mammography is needed in this case. The lungs are clear. No effusions. No axillary, mediastinal nor hilar lymphadenopathy. Bone windows and Limited views upper abdomen organs look unremarkable. Impression: Asymmetric breast tissue. Workup mammography needed. Please note, study made available for reading 0856 hours at 0858 Reported and signed by: Stewart [place] MD CC: Vazquez Jones III, MD Technologist: Pierre Becker CT Trscrpt Dt/ (0858)RimaPKE Orig Print D/T: S: 12/23/2018 (0901) CTDI: DLP: [facility] NAME: SAI PÉREZ [facility] [address] PHYS: Vazquez Asher III, MD [address] :2000 AGE: 18 SEX: M [place], [place] [address] LOC: D.PER PHONE #: [phone] EXAM DATE: 12/23/2018 STATUS: REG ER FAX #: RAD NO: DC Dt: PAGE 1 Signed ReportCBC W/AUTO [id number] 06:35:00 * Test Item Value Reference Range Interpretation Comme nts WHITE BLOOD CELL (test code = WBC) 8.55 x10 3/uL 4.80-10.80 N RED BLOOD CELL (test code = RBC) 5.23 x10 6/uL 4.7-6.1 N HEMOGLOBIN (test code = HGB) 15.3 G/DL 14.0-17.0 N HEMATOCRIT (test code = HCT) 44.8 % 42-52 N MEAN CELL VOLUME (test code = MCV) 85.7 FL 80-94 N MEAN CELL HGB (test code = MCH) 29.3 PG 27-31 N MEAN CELL HGB CONCENTRATION (test code = MCHC) 34.2 G/DL 33-37 N RED CELL DISTRIBUTION WIDTH (test code = RDW) 12.9 % 11.5-14.5 N PLATELET COUNT (test code = PLT) 278 x10 3/uL 150-450 N MEAN PLATELET VOLUME (test code = MPV) 10.3 FL 7.4-10.4 N NEUTROPHIL % (test code = NT%) 56.7 % 42-86 N LYMPHOCYTE % (test code = LY%) 29.1 % 24-44 N MONOCYTE % (test code = MO%) 8.4 % 0.0-4.0 H EOSINOPHIL % (test code = EO%) 5.3 % 0.0-2.7 H BASOPHIL % (test code = BA%) 0.5 % 0.0-0.5 N NEUTROPHIL # (test code = NT#) 4.85 x10 3/uL 1.8-7.7 N LYMPHOCYTE # (test code = LY#) 2.49 x10 3/uL 1.0-4.8 N MONOCYTE # (test code = MO#) 0.72 x10 3/uL 0.0-0.8 N EOSINOPHIL # (test code = EO#) 0.45 x10 3/uL 0.0-0.5 N BASOPHIL # (test code = BA#) 0.04 x10 3/uL 0.0-0.2 N MANUAL DIFF REQUIRED (test code = MDIFF) AUTODIFF VERIFIED TECH REVIEW Auto Differential verified by tech review of smear. BASIC METABOLIC [id number] 06:32:00* Test Item Value Reference Range Interpretation Comme nts SODIUM (test code = NA) 140 MMOL/L 133-145 N POTASSIUM (test code = K) 4.4 MMOL/L 3.6-5.2 N CHLORIDE (test code = CL) 107 MMOL/L 100-108 N CARBON DIOXIDE (test code = CO2) 26 MMOL/L 22-32 N GLUCOSE (test code = GLU) 99 MG/DL 65-99 N Results of this assay method may be falsely depressed orelevated if patient is taking sulfasalazine. BLOOD UREA NITROGEN (test code = BUN) 15 MG/DL 6-20 N GLOMERULAR FILTRATION RATE (test code = GFR) 94 77-179 N Reporting units: mL/min/1.73m\\S\\2 (Modified MDRD Formula) CREATININE (test code = CREAT) 1.01 MG/DL 0.60-1.00 H CALCIUM (test code = CA) 8.7 MG/DL 8.7-10.5 N CBC W/AUTO [id number] 06:26:00* Test Item Value Reference Range Interpretation Comme nts WHITE BLOOD CELL (test code = WBC) 8.55 x10 3/uL 4.80-10.80 N RED BLOOD CELL (test code = RBC) 5.23 x10 6/uL 4.7-6.1 N HEMOGLOBIN (test code = HGB) 15.3 G/DL 14.0-17.0 N HEMATOCRIT (test code = HCT) 44.8 % 42-52 N MEAN CELL VOLUME (test code = MCV) 85.7 FL 80-94 N MEAN CELL HGB (test code = MCH) 29.3 PG 27-31 N MEAN CELL HGB CONCENTRATION (test code = MCHC) 34.2 G/DL 33-37 N RED CELL DISTRIBUTION WIDTH (test code = RDW) 12.9 % 11.5-14.5 N PLATELET COUNT (test code = PLT) 278 x10 3/uL 150-450 N MEAN PLATELET VOLUME (test c ode = MPV) 10.3 FL 7.4-10.4 N NEUTROPHIL % (test code = NT%) % 42-86 N LYMPHOCYTE % (test code = LY%) % 24-44 N MONOCYTE % (test code = MO%) % 0.0-4.0 H EOSINOPHIL % (test code = EO%) % 0.0-2.7 H BASOPHIL % (test code = BA%) % 0.0-0.5 N NEUTROPHIL # (test code = NT#) x10 3/uL 1.8-7.7 N LYMPHOCYTE # (test code = LY#) x10 3/uL 1.0-4.8 N MONOCYTE # (test code = MO#) x10 3/uL 0.0-0.8 N EOSINOPHIL # (test code = EO#) x10 3/uL 0.0-0.5 N BASOPHIL # (test code = BA#) x10 3/uL 0.0-0.2 N Notes Date/Time Note Provider Source 2024-12-13 22:58:00 [facility] OR A [facility]AMP[facility] OF [facility] EMERGENCY PROVIDER REPORT REPORT#:[id number] REPORT STATUS: Signed DATE:12/13/24 TIME: 2257 PATIENT: SAI PÉREZ UNIT #: [id number] ROOM/BED: : [birth year] AGE: 24 SEX: M PCP PHYS: No Primary or Family Physician SERVICE AUTHOR: Rik Sneed MD REP SRV REP SRV TM: 2258 * ALL edits or amendments must be made on the electronic/computer document * HPI-General Illness Free Text HPI Notes Free Text HPI Notes 24-year-old male, with a past medical history of no known medical problems who presents with an acute episode of diaphoresis and feeling hot. He was preparing for bed when he suddenly felt very hot and started sweating profusely, as if he had just gotten out of the shower. This was associated with nausea and dizziness. The episode lasted for approximately 45 minutes to an hour before it subsided. He denies any prior history of similar episodes, panic attacks, or anxiety. He mentions a previous episode where he felt very hot with a sensation of "hot needles" in his body. He is currently taking Lexapro, lamotrigine, and olanzapine as prescribed by another physician to evaluate if his symptoms are psychosomatic, as it was suggested his brain might be causing his stomach to produce excess acid. He reports abdominal pain, described as a "ball" in the kidney/stomach area, which started after he was carrying two heavy buckets of water for three days, during which his stomach was "stretched out excessively." He also notes that sometimes the pain seems to come from his ears. He appears generally well. General Initial Greet Date/Time 12/13/242217 Presentation Chief Complaint Weakness Review of Systems ROS Statements All systems rev neg except as marked. Past Medical History - Adult Stated Complaint FEELING HOT DIZZY NAUSEAS Allergies Coded Allergies: No Known Allergies (12/19/16) Home Medications Active Scripts IBUPROFEN (MOTRIN) 800 MG PO TID PRN PRN PAIN IBUPROFEN (MOTRIN) 800 MG PO TID PRN PRN PAIN #30 TABS Prov: 08/31/23 METHOCARBAMOL (ROBAXIN) 750 MG PO Q4H 7 Days #42 TABS Prov: 08/31/23 NAPROXEN SODIUM DS (ANAPROX DS) 550 MG PO BID PRN PRN PAIN NAPROXEN SODIUM DS (ANAPROX DS) 550 MG PO BID PRN PRN PAIN #15 TABS Prov: 02/21/22 Reported Medications LISDEXAMFETAMINE (VYVANSE) 50 MG PO DAILY Calculated Suicide Risk (nurs) No risk Pt reports no significant: Past surgical history, Family history, Social history Past Medical History: Denies: Alcoholism/subst abuse, Anemia, Arthritis, Asthma, Cancer, Congestive heart failure, COPD, Coronary artery disease, Dementia, Depression/mood disorder , Diabetes mellitus, GERD/gastritis, Kidney disease/stones, Seizure disorder, Transient ischemic attack, , Abdominal aortic aneurysm, ADD/ADHD, Angina pectoris, Anticoagulant therapy, Bleeding disorder, BPH, C diff colitis, Cardiac dysrhythmias, Chronic pain, Cirrhosis, Congenital anomalies, Dyslipidemia, Gallbladder dis/stones, GI bleed, Glaucoma, Headache disorder, Hepatitis, Intracranial hemorrhage, Ischemic stroke, Motor dysfunction, Pancreatitis, Peptic ulcer disease, Periph arterial disease, Pressure ulcer, Prior [place], Schizophrenia, Sickle cell disease, Steroid use, Thyroid disorder, Transfusion history, Tuberculosis, Urinary tract infection, Venous thromboembolism. Additional Medical History adhd Additional Surgical History NONE Additional Family History Clinically noncontributory Alcohol Use Alcohol use Drug Use Marijuana Smoking status for patients 13 years old or older: Current every day smoker Physical Exam Vital Signs Vital Signs First Documented: Result Date Time Pulse Ox 99 12/13 2214 B/P 135/82 12/13 2214 O2 Delivery Room air 12/13 2214 Temp 97.1 12/13 2214 Pulse 64 12/13 2214 Resp 16 12/13 2214 Last Documented: Result Date Time Pulse Ox 99 12/13 2214 B/P 135/82 12/13 2214 O2 Delivery Room air 12/13 2214 Temp 97.1 12/13 2214 Pulse 64 12/13 2214 Resp 16 12/13 2214 Review of Vital Signs Reviewed Basic Physical Exam Basic PE GEN: Well appearing/NAD, HEAD: Atraumatic/NC, EYES: PERRL, conj clear, ENT: Membranes moist, NECK: Supple, RESP: No resp distress, CV: Reg rate rhythm, ABD: Soft/non-tender, EXT: No gross abnormality, SKIN: No rashes, warm/ dry, NEURO: alert oriented, NEURO: gross movement NL Physical Exam Psychiatric Abnormal Mood/Affect Anxious. Re-Evaluation MDM Free Text MDM Notes Free Text MDM Notes DDX: Anxiety, Panic Attack, Stress Reaction, Gastritis, Peptic Ulcer Disease, Muscular Strain plan: The primary assessment is an acute stress or anxiety reaction. The differential diagnoses include gastritis and peptic ulcer disease, given the reported abdominal symptoms. The current medication regimen of Lexapro, lamotrigine, and olanzapine is noted as an attempt by another provider to manage potential psychosomatic symptoms contributing to his GI complaints. An EGD has been recommended by another provider, and he is awaiting this procedure, which is an appropriate next step for his abdominal symptoms. For the acute episode, he will be administered a dose of hydroxyzine to alleviate his stress reaction. He was educated that his symptoms are likely related to stress and anxiety, which can manifest randomly. The plan is to observe his response to the medication and discharge him home to rest if he improves. Shared decision making was utilized, and the patient agreed with the plan. HPI obtained from patient/family. Nursing notes reviewed. External chart reviewed independent interpretation performed. I performed independent interpretation of studies including diagnostic imaging, independent lab interpretation. Diagnostic tests above were ordered. Medications listed were given. Patient's comorbidities and social factors such as living arrangements were considered during disposition decision. Discussion of management had with patient. Shared decision making made. ED Course Medication(s) Ordered Medication(s) Ordered: Central Nervous System Agents Sig/Raffaele Start time Last Medication Dose Route Stop Time Status Admin Lorazepam 1 MG X1ED STA 12/13 2257 DC 12/13 IV 12/13 2258 2306 Patient Discharge Departure Vital Signs/Condition Vital Signs First Documented: Result Date Time Pulse Ox 99 12/135 B/P 135/82 12/13 221 O2 Delivery Room air 12/135 Temp 97.1 12/13 2215 Pulse 64 12/13 2215 Resp 16 12/135 Last Documented: Result Date Time Pulse Ox 99 12/13 2215 B/P 135/82 12/13 221 O2 Delivery Room air 12/13 2215 Temp 97.1 12/13 2215 Pulse 64 12/13 2215 Resp 16 12/135 All vital signs available at the time of this entry have been reviewed. Clinical Impression Clinical Impression Primary Impression: Anxiety Disposition Decision Discharge )( Discharged to Home Yes )( Time 2327 )( Date 12/13/24 Discharge/Care Plan (Auto) Prescriptions Current Visit Scripts hydrOXYzine HCL (ATARAX) 25 MG PO QID PRN PRN anxiety hydrOXYzine HCL (ATARAX) 25 MG PO QID PRN PRN anxiety #20 TABS Patient Instructions ED Anxiety Reaction at 0400 RPT #:[id number] END OF REPORT [facility] 2024-02-15 11:36:00 [facility] OR A CAMPUS OF [facility] EMERGENCY PROVIDER REPORT REPORT#:[id number] REPORT STATUS: Signed DATE:02/15/24 TIME: 113 PATIENT: SAI PÉREZ UNIT #: [id number] ROOM/BED: : 98 AGE: 23 SEX: M PCP PHYS: No Primary or Family Physician SERVICE AUTHOR: Maame Eddy APRN JEWELRY MECHANIC REP SRV REP SRV TM: 1136 * ALL edits or amendments must be made on the electronic/computer document * HPI-General Illness Free Text HPI Notes Free Text HPI Notes 23 year old male to ER for "heated feelings". Patient reports he has been sitting in the truck with the AC on all morning when he reports he started feeling "hot". He admits that he was sweating despite being in the AC. 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 General Confirmed Patient Yes Initial Greet Date/Time 02/15/24 1117 Presentation Chief Complaint Anxiety Past Medical History - Adult Stated Complaint HEATED FEELINGS Allergies Coded Allergies: No Known Allergies (12/19/16) Home Medications Active Scripts IBUPROFEN (MOTRIN) 800 MG PO TID PRN PRN PAIN IBUPROFEN (MOTRIN) 800 MG PO TID PRN PRN PAIN #30 TABS Prov: 08/31/23 METHOCARBAMOL (ROBAXIN) 750 MG PO Q4H 7 Days #42 TABS Prov: 08/31/23 NAPROXEN SODIUM DS (ANAPROX DS) 550 MG PO BID PRN PRN PAIN NAPROXEN SODIUM DS (ANAPROX DS) 550 MG PO BID PRN PRN PAIN #15 TABS Prov: 02/21/22 Reported Medications LISDEXAMFETAMINE (VYVANSE) 50 MG PO DAILY Past Medical History: Denies: Alcoholism/subst abuse, Anemia, Arthritis, Asthma, Cancer, Congestive heart failure, COPD, Coronary artery disease, Dementia, Depression/mood disorder , Diabetes mellitus, GERD/gastritis, Kidney disease/stones, Seizure disorder, Transient ischemic attack, , Abdominal aortic aneurysm, ADD/ADHD, Angina pectoris, Anticoagulant therapy, Bleeding disorder, BPH, C diff colitis, Cardiac dysrhythmias, Chronic pain, Cirrhosis, Congenital anomalies, Dyslipidemia, Gallbladder dis/stones, GI bleed, Glaucoma, Headache disorder, Hepatitis, Intracranial hemorrhage, Ischemic stroke, Motor dysfunction, Pancreatitis, Peptic ulcer disease, Periph arterial disease, Pressure ulcer, Prior [place], Schizophrenia, Sickle cell disease, Steroid use, Thyroid disorder, Transfusion history, Tuberculosis, Urinary tract infection, Venous thromboembolism. Additional Medical History adhd Additional Surgical History NONE Additional Family History Clinically noncontributory Alcohol Use Alcohol use Drug Use Marijuana Physical Exam Vital Signs Vital Signs First Documented: Result Date Time Pulse Ox 99 02/14 1135 B/P 153/97 02/14 1135 B/P Mean 115 02/14 1135 Temp 36.3 02/14 1135 Pulse 89 02/14 1135 Resp 18 02/14 1135 Last Documented: Result Date Time Pulse Ox 99 02/14 1135 B/P 153/97 02/14 1135 B/P Mean 115 02/14 1135 Temp 36.3 02/14 1135 Pulse 89 02/14 1135 Resp 18 02/14 1135 Review of Vital Signs Reviewed Free Text PE Notes Free Text PE Notes GENERAL: No acute distress, non-toxic appearance. HEAD: Normal with no signs of head trauma. EYES: PERRLA, EOMI, conjunctiva normal, no discharge. EARS: Hearing grossly intact. NOSE: Normal. THROAT: Oropharynx is normal. Moist mucous membranes NECK: Normal range of motion, no tenderness, supple, no lymphadenopathy, No adenopathy, no JVD. CHEST: Clear breath sounds bilaterally. No wheezes, rales, or rhonchi. CARDIAC: Regular rate and rhythm. S1 and S2, without murmurs, gallops, or rubs. VASCULAR: No Edema. Peripheral pulses normal and equal in all extremities. ABDOMEN: Normal and soft with no tenderness, no masses or pulsatile masses. GASTROINTESTINAL: Bowel sounds normal GENITOURINARY: Deferred LYMPATHTIC: No lymphadenopathy noted. MUSCULOSKELETAL: No joint pain or swelling. NEUROLOGICAL: Alert and oriented x 3. No focal sensory or strength deficits. Speech normal. Follows commands appropriately. PSYCHIATRIC: Normal Affect, judgement and mood. SKIN: Normal appearance with no rashes or lesions. Interpretation Diagnostics Lab Results Interpretation Results Laboratory Tests 02/15/24 1159: [Embedded Image Not Available] Laboratory Tests: 02/14 1300 Urines Ur Spec Description Clean Catch Urine Color (YELLOW) YELLOW Urine Appearance (CLEAR) CLEAR Urine pH (5.5 - 7.0) 8.0 H Ur Specific [place] (1.001 - 1.035) 1.005 Urine Protein (NEGATIVE mg/dL) NEGATIVE Urine Glucose (UA) (NEGATIVE mg/dL) NEGATIVE Urine Ketones (NEGATIVE mg/dL) NEGATIVE Urine Blood (NEGATIVE) NEGATIVE Urine Nitrite (NEGATIVE) NEGATIVE Urine Bilirubin (NEGATIVE) NEGATIVE Urine Urobilinogen (NORMAL mg/dL) NORMAL Ur Leukocyte Esterase (NEGATIVE) NEGATIVE Urine WBC (<10 #/hpf) < 10 Ur Squamous Epith Cells (<100 #/lpf) 0 - 20 Urine Culture Screen Criteria not met Urine Comment VOLUME 10-12 ML 02/14 1159 Chemistry Sodium (133 - 145 MMOL/L) 139 Potassium (3.6 - 5.2 MMOL/L) 4.6 Chloride (100 - 108 MMOL/L) 102 Carbon Dioxide (22 - 32 MMOL/L) 24 BUN (6 - 20 MG/DL) 13 Creatinine (0.60 - 1.00 MG/DL) 0.95 Estimated GFR (MDRD) (77 - 179) 114 Glucose (65 - 99 MG/DL) 97 Calcium (8.7 - 10.5 MG/DL) 9.2 Creatine Kinase (39 - 308 Units/L) 158 CK-MB (CK-2) (0.0 - 3.6 NG/ML) < 0.5 Hematology WBC (4.80 - 10.80 x10 3/uL) 10.39 RBC (4.7 - 6.1 x10 6/uL) 5.84 Hgb (14.0 - 17.0 G/DL) 16.7 Hct (42 - 52 %) 50.0 MCV (80 - 94 FL) 85.6 MCH (27 - 31 PG) 28.6 MCHC (33 - 37 G/DL) 33.4 RDW Coeff of Ashley (11.5 - 14.5 %) 13.2 Plt Count (150 - 450 x10 3/uL) 257 MPV (7.4 - 10.4 FL) 10.6 H Neut % (Auto) (42 - 86 %) 71.7 Lymph % (Auto) (24 - 44 %) 21.2 L [place] % (Auto) (0.0 - 4.0 %) 6.5 H Eos % (Auto) (0.0 - 2.7 %) 0.4 Baso % (Auto) (0.0 - 0.5 %) 0.2 Eos # (Auto) (0.0 - 0.5 x10 3/uL) 0.04 Baso # (Auto) (0.0 - 0.2 x10 3/uL) 0.02 Absolute Neuts (auto) (1.8 - 7.7 x10 3/uL) 7.45 Absolute Lymphs (auto) (1.0 - 4.8 x10 3/uL) 2.20 Absolute Monos (auto) (0.0 - 0.8 x10 3/uL) 0.68 Add Manual Diff (TECH REVIEW) AUTODIFF VERIFIED Lab Statement Laboratory studies reviewed and considered in the medical decision-making. Re-Evaluation MDM Free Text MDM Notes Free Text MDM Notes 23 year old male to ER for "heated feelings". Patient reports he has been sitting in the truck with the AC on all morning when he reports he started feeling "hot". He admits that he was sweating despite being in the AC. 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 POC CBC/BMP CPK Patient Discharge Departure Vital Signs/Condition Vital Signs First Documented: Result Date Time Pulse Ox 99 02/14 1135 B/P 153/97 02/14 1135 B/P Mean 115 02/14 1135 Temp 36.3 02/14 1135 Pulse 89 02/14 1135 Resp 18 02/14 1135 Last Documented: Result Date Time Pulse Ox 99 02/14 1135 B/P 153/97 02/14 1135 B/P Mean 115 02/14 1135 Temp 36.3 02/14 1135 Pulse 89 02/14 1135 Resp 18 02/14 1135 All vital signs available at the time of this entry have been reviewed. Condition Stable Clinical Impression Clinical Impression Primary Impression: Worried well Disposition Decision Discharge )( Discharged to Home Yes )( Time 1410 )( Date 02/15/24 Discharge/Care Plan Counseled Regarding Diagnosis, Lab results, Need for follow-up, When to return to ED Patient Instructions ED Well Adult Exam [facility] Referrals Provider Referral: Bakari Jay MD Follow-Up: 1-2 Days Address: [address] [place], [place] [address], [address] [place] [address] Discharge Note I have spoken with the patient and/or caregivers. I have explained the patient's condition, diagnoses and treatment plan based on the information available to me at this time. I have answered the patient's and/or caregiver's questions and addressed any concerns. The patient and/or caregivers have as good an understanding of the patient's diagnosis, condition and treatment plan as can be expected at this point. The vital signs have been stable. The patient's condition is stable and appropriate for discharge from the emergency department. The patient will pursue further outpatient evaluation with the primary care physician or other designated or consulting physician as outlined in the discharge instructions. The patient and/or caregivers are agreeable to this plan of care and follow-up instructions have been explained in detail. The patient and/or caregivers have received these instructions in written format and have expressed an understanding of the discharge instructions. The patient and/or caregivers are aware that any significant change in condition or worsening of symptoms should prompt an immediate return to this or the closest emergency department or a call to 1. at 1547 at 0753 RPT #:[id number] END OF REPORT [facility] 2023-11-13 20:53:00 [facility] OR A CAMPUS OF [facility] EMERGENCY PROVIDER REPORT REPORT#:[id number] REPORT STATUS: Signed DATE:11/13/23 TIME: 2052 PATIENT: SAI PÉREZ UNIT #: [id number] ROOM/BED: AGE: 23 SEX: M PCP PHYS: No Primary or Family Physician SERVICE AUTHOR: Shawn Roa III DO * ALL edits or amendments must be made on the electronic/computer document * HPI-Abd Pain M Under 40 General Initial Greet Date/Time 11/13/232035 Presentation Chief Complaint Abdominal pain Hx Obtained From Patient Sudden in Onset? No Onset Occurred Days ago Symptom Duration Waxes and wanes Progression since Onset Waxes and wanes Caused by No trauma by history Location Abdomen lower Quality Sharp Radiation Does not radiate. Migration/Movement None Pain/Sev: Onset Moderate Pain/Sev: Current Moderate Associated with Denies: Anorexia, Back pain, Chills, Diarrhea, Dysuria, Hematemesis, Hematochezia, Shortness of breath. Exacerbated by Movement Relieved by Nothing Free Text HPI Notes Free Text HPI Notes 23-year-old male presenting to the emerged department complaining of lower abdominal pain. He reports pain started days ago. He states the pain is worse with movement. Review of Systems ROS Statements All systems rev neg except as marked. Basic Review of Systems Basic ROS EYES: No redness, ENT: No sore throat, HEM: No bleeding/bruising, SKIN : No rash, NEURO: No change MS, NEURO: No focal deficit, PSYCH: NL thought content Past Medical History - Adult Stated Complaint MUSCLE PAIN ABD PAIN Allergies Coded Allergies: No Known Allergies (12/19/16) Home Medications Active Scripts IBUPROFEN (MOTRIN) 800 MG PO TID PRN PRN PAIN IBUPROFEN (MOTRIN) 800 MG PO TID PRN PRN PAIN #30 TABS Prov: 08/31/23 METHOCARBAMOL (ROBAXIN) 750 MG PO Q4H 7 Days #42 TABS Prov: 08/31/23 NAPROXEN SODIUM DS (ANAPROX DS) 550 MG PO BID PRN PRN PAIN NAPROXEN SODIUM DS (ANAPROX DS) 550 MG PO BID PRN PRN PAIN #15 TABS Prov: 02/21/22 Reported Medications LISDEXAMFETAMINE (VYVANSE) 50 MG PO DAILY Review of Nursing Notes Rev avail, and agree Past Medical History: Denies: Alcoholism/subst abuse, Anemia, Arthritis, Asthma, Cancer, Congestive heart failure, COPD, Coronary artery disease, Dementia, Depression/mood disorder , Diabetes mellitus, GERD/gastritis, Kidney disease/stones, Seizure disorder, Transient ischemic attack, , Abdominal aortic aneurysm, ADD/ADHD, Angina pectoris, Anticoagulant therapy, Bleeding disorder, BPH, C diff colitis, Cardiac dysrhythmias, Chronic pain, Cirrhosis, Congenital anomalies, Dyslipidemia, Gallbladder dis/stones, GI bleed, Glaucoma, Headache disorder, Hepatitis, Intracranial hemorrhage, Ischemic stroke, Motor dysfunction, Pancreatitis, Peptic ulcer disease, Periph arterial disease, Pressure ulcer, Prior [place], Schizophrenia, Sickle cell disease, Steroid use, Thyroid disorder, Transfusion history, Tuberculosis, Urinary tract infection, Venous thromboembolism. Additional Medical History adhd Additional Surgical History NONE Additional Family History Clinically noncontributory Alcohol Use Alcohol use Drug Use Marijuana Physical Exam Vital Signs Vital Signs First Documented: Result Date Time Pulse Ox 99 11/12 2033 B/P 150/98 11/12 2033 B/P Mean 115 11/12 2033 O2 Delivery Room air 11/12 2033 Temp 36.2 11/12 2033 Pulse 85 11/12 2033 Resp 18 11/12 2033 Last Documented: Result Date Time Pulse Ox 99 11/12 2214 B/P 142/83 11/12 2214 B/P Mean 102 11/12 2214 Pulse 81 11/12 2214 Resp 16 11/12 2214 O2 Delivery Room air 11/12 2033 Temp 36.2 11/12 2033 Review of Vital Signs Reviewed Focused PE General/Const General/Const Awake, Alert, Well appearing MS Head Head Normocephalic Eyes Eyes PERRL Ears/Nose/Throat Ears/Nose/Throat Airway patent, Mucous membranes moist, Pharynx NL Resp/Chest Respiratory/Chest Breath sounds NL, Breath sounds = bilat, No respiratory distress, No rales, No rhonchi, No wheezing Cardiovascular Cardiovascular Heart rate NL, Regular rhythm, Heart sounds NL, Peripheral circulation NL Abdomen/GI Abdomen/GI Atraumatic, Soft, No guarding, No rebound Tenderness/Guarding/Rebound Tender LLQ. MS Back Back Inspection NL, Non-tender, No CVA tenderness Skin Skin Color NL, Warm, Dry, Turgor NL Neurologic Neurologic Oriented X3, Speech NL, No motor deficits, No sensory deficits Interpretation Diagnostics Lab Results Interpretation Results Laboratory Tests 11/13/232121: [Embedded Image Not Available] Laboratory Tests: 11/12 2121 Chemistry Sodium (133 - 145 MMOL/L) 140 Potassium (3.6 - 5.2 MMOL/L) 3.4 L Chloride (100 - 108 MMOL/L) 103 Carbon Dioxide (22 - 32 MMOL/L) 29 BUN (6 - 20 MG/DL) 12 Creatinine (0.60 - 1.00 MG/DL) 1.09 H Estimated GFR (MDRD) (77 - 179) 97 Glucose (65 - 99 MG/DL) 107 H Calcium (8.7 - 10.5 MG/DL) 9.1 Total Bilirubin (0.0 - 1.0 MG/DL) 0.8 AST (15 - 37 Units/L) 11 L ALT (30 - 65 Units/L) 18 L Alkaline Phosphatase (50 - 136 Units/L) 79 Total Protein (6.4 - 8.2 G/DL) 7.5 Albumin (3.4 - 5.0 G/DL) 4.1 Globulin (1.5 - 3.8 G/DL) 3.4 Albumin/Globulin Ratio (1.1 - 2.2) 1.2 Lipase (16 - 77 U/L) 20 Hematology WBC (4.80 - 10.80 x10 3/uL) 9.32 RBC (4.7 - 6.1 x10 6/uL) 4.94 Hgb (14.0 - 17.0 G/DL) 14.1 Hct (42 - 52 %) 42.0 MCV (80 - 94 FL) 85.0 MCH (27 - 31 PG) 28.5 MCHC (33 - 37 G/DL) 33.6 RDW Coeff of Ashley (11.5 - 14.5 %) 12.5 Plt Count (150 - 450 x10 3/uL) 280 MPV (7.4 - 10.4 FL) 10.5 H Neut % (Auto) (42 - 86 %) 68.4 Lymph % (Auto) (24 - 44 %) 23.7 L [place] % (Auto) (0.0 - 4.0 %) 6.4 H Eos % (Auto) (0.0 - 2.7 %) 1.2 Baso % (Auto) (0.0 - 0.5 %) 0.3 Eos # (Auto) (0.0 - 0.5 x10 3/uL) 0.11 Baso # (Auto) (0.0 - 0.2 x10 3/uL) 0.03 Absolute Neuts (auto) (1.8 - 7.7 x10 3/uL) 6.37 Absolute Lymphs (auto) (1.0 - 4.8 x10 3/uL) 2.21 Absolute Monos (auto) (0.0 - 0.8 x10 3/uL) 0.60 Add Manual Diff (TECH REVIEW) AUTODIFF VERIFIED Toxicology Urine Opiates Screen (NEGATIVE) NEGATIVE Ur Barbiturates Screen (NEGATIVE) NEGATIVE Ur Phencyclidine Scrn (NEGATIVE) NEGATIVE Ur Amphetamine Screen (NEGATIVE) NEGATIVE MDMA (NEGATIVE) NEGATIVE U Benzodiazepines Scrn (NEGATIVE) NEGATIVE Urine Cocaine Screen (NEGATIVE) NEGATIVE U Cannabinoids Screen (NEGATIVE) POSITIVE H Urines Ur Spec Description Clean Catch Urine Color (YELLOW) YELLOW Urine Appearance (CLEAR) CLEAR Urine pH (5.5 - 7.0) 5.0 L Ur Specific [place] (1.001 - 1.035) 1.025 Urine Protein (NEGATIVE mg/dL) 15 H Urine Glucose (UA) (NEGATIVE mg/dL) NEGATIVE Urine Ketones (NEGATIVE mg/dL) 15 H Urine Blood (NEGATIVE) NEGATIVE Urine Nitrite (NEGATIVE) NEGATIVE Urine Bilirubin (NEGATIVE) NEGATIVE Urine Urobilinogen (NORMAL mg/dL) 1.0 Ur Leukocyte Esterase (NEGATIVE) 25 H Urine RBC (NONE SEEN #/hpf) None Seen Urine WBC (<10 #/hpf) < 10 Ur Squamous Epith Cells (<100 #/lpf) 0 - 20 Urine Culture Screen Criteria not met Urine Comment VOLUME 10-12 ML Recent Impressions: CAT SCAN - CT ABD PELVIS W/CONT 11/12 2129 Report Impression - Status: SIGNED Entered: 11/13/20232150 IMPRESSION: Unremarkable CT examination of the abdomen and pelvis per Electronically signed by: Ja Abebe MD 11/13/2023 09:49 PM CDT RP Impression By: [email or web address] - Ja Abebe MD Lab Imaging Statement Laboratory radiographic studies reviewed and considered in the medical decision-making. Re-Evaluation MDM )( Re-Evaluation/Progress #1 Abd Pain MDM Note M < 40 The patient is resting comfortably and feels better, is alert and in no distress. The repeat examination is unremarkable and benign; in particular, there is no discomfort at McBurney's point. The history, exam, diagnostic testing, and current condition do not suggest acute appendicitis, bowel obstruction, incarcerated hernia, testicular torsion, acute cholecystitis, bowel perforation, major gastrointestinal bleeding, severe diverticulitis, sepsis, or other significant pathology to warrant further testing, continued ED treatment, admission, or surgical evaluation at this point. The vital signs have been stable and are within normal limits at this time. The patient does not have uncontrollable pain, intractable vomiting, or other significant symptoms. The patient's condition is stable and appropriate for discharge. The patient will pursue further outpatient evaluation with the primary care physician or other designated or consulting physician as indicated in the discharge instructions. ED Course Medication(s) Ordered Medication(s) Ordered: Autonomic Drugs Sig/Raffaele Start time Last Medication Dose Route Stop Time Status Admin Dicyclomine HCl 20 MG X1ED STA 11/12 2205 DC PO 11/12 2206 Diagnostic Agents Sig/Raffaele Start time Last Medication Dose Route Stop Time Status Admin Iopamidol 100 ML .STK-MED ONE 11/12 2136 DC 11/12 IV 11/12 Patient Discharge Departure Vital Signs/Condition Vital Signs First Documented: Result Date Time Pulse Ox 99 11/12 2033 B/P 150/98 11/12 2033 B/P Mean 115 11/12 2033 O2 Delivery Room air 11/12 2033 Temp 36.2 11/12 2033 Pulse 85 11/12 2033 Resp 18 11/12 2033 Last Documented: Result Date Time Pulse Ox 99 11/12 2214 B/P 142/83 11/12 2214 B/P Mean 102 11/12 2214 Pulse 81 11/12 2214 Resp 16 11/12 2214 O2 Delivery Room air 11/12 2033 Temp 36.2 11/12 2033 All vital signs available at the time of this entry have been reviewed. Clinical Impression Clinical Impression Primary Impression: Abdominal pain Disposition Decision Discharge )( Discharged to Home Yes )( Time 2208 )( Date 11/13/23 Discharge/Care Plan Counseled Regarding Diagnosis, Lab results, Imaging studies, Prescriptions, Need for follow-up Patient Instructions Abdominal Pain Referrals Provider Group: [facility] Address: [address] [place] [address]. [place] [address] Discharge Note I have spoken with the patient and/or caregivers. I have explained the patient's condition, diagnoses and treatment plan based on the information available to me at this time. I have answered the patient's and/or caregiver's questions and addressed any concerns. The patient and/or caregivers have as good an understanding of the patient's diagnosis, condition and treatment plan as can be expected at this point. The vital signs have been stable. The patient's condition is stable and appropriate for discharge from the emergency department. The patient will pursue further outpatient evaluation with the primary care physician or other designated or consulting physician as outlined in the discharge instructions. The patient and/or caregivers are agreeable to this plan of care and follow-up instructions have been explained in detail. The patient and/or caregivers have received these instructions in written format and have expressed an understanding of the discharge instructions. The patient and/or caregivers are aware that any significant change in condition or worsening of symptoms should prompt an immediate return to this or the closest emergency department or a call to 911. Quality Measures BP F/U for HTN Referred for BP f/u < 4wk, F/u with PCP/other doc Smoking Cessation Screened, non user at 1908 RPT #:[id number] END OF REPORT [facility] 2023-08-31 16:58:00 [facility] OR A [facility]AMPUS OF [facility] EMERGENCY PROVIDER REPORT REPORT#:[id number] REPORT STATUS: Signed DATE:08/31/23 TIME: 1657 PATIENT: SAI PÉREZ UNIT #: [id number] ROOM/BED: AGE: 23 SEX: M PCP PHYS: No Primary or Family Physician SERVICE AUTHOR: John Isbell APRN, JEWELRY MECHANIC, ELECTRONIC SCALE TESTER * ALL edits or amendments must be made on the electronic/computer document * John Isbell 08/31/23 1658: HPI-General Illness General Confirmed Patient Yes Patient Type New patient Initial Greet Date/Time 08/31/23 1642 Presentation Chief Complaint Back pain Hx Obtained From Patient Sudden in Onset? Yes Onset Occurred Today Free Text HPI Notes Free Text HPI Notes Patient presents to the emergency department chief complaint is thoracic back pain which started earlier this morning upon waking up. Patient denies any recent trauma injuries or falls but states he does have a history of chronic back pain since adolescence. Patient also denies any chest pain shortness of breath dizziness, abdominal pain, urinary or bowel symptoms. Patient was to triage without assistance with steady gait. Patient denies taking any over-the- counter pain medication prior to arrival. Review of Systems Free Text ROS Notes Free Text ROS Notes Constitutional: normal mentation, no headache, no recent illnesses HENT: no face, ear, nose, mouth, throat pain Eyes: no eye pain, visual disturbance Respiratory: no shortness of breath, chest wall pain Cardiovascular: no chest pain Gastrointestinal: no nausea, vomiting, abdominal pain Genitourinary: no urinary symptom Extremity: no extremity pain Skin: no wounds Neurological: no numbness, weakness, paresthesia Psychiatric/Behavioral: no confusion, agitation Past Medical History - Adult Stated Complaint BACK PAIN Allergies Coded Allergies: No Known Allergies (12/19/16) Home Medications Active Scripts NAPROXEN SODIUM DS (ANAPROX DS) 550 MG PO BID PRN PRN PAIN NAPROXEN SODIUM DS (ANAPROX DS) 550 MG PO BID PRN PRN PAIN #15 TABS Prov: 02/21/22 Reported Medications LISDEXAMFETAMINE (VYVANSE) 50 MG PO DAILY Past Medical History: Denies: Alcoholism/subst abuse, Anemia, Arthritis, Asthma, Cancer, Congestive heart failure, COPD, Coronary artery disease, Dementia, Depression/mood disorder , Diabetes mellitus, GERD/gastritis, Kidney disease/stones, Seizure disorder, Transient ischemic attack, , Abdominal aortic aneurysm, ADD/ADHD, Angina pectoris, Anticoagulant therapy, Bleeding disorder, BPH, C diff colitis, Cardiac dysrhythmias, Chronic pain, Cirrhosis, Congenital anomalies, Dyslipidemia, Gallbladder dis/stones, GI bleed, Glaucoma, Headache disorder, Hepatitis, Intracranial hemorrhage, Ischemic stroke, Motor dysfunction, Pancreatitis, Peptic ulcer disease, Periph arterial disease, Pressure ulcer, Prior [place], Schizophrenia, Sickle cell disease, Steroid use, Thyroid disorder, Transfusion history, Tuberculosis, Urinary tract infection, Venous thromboembolism. Additional Medical History adhd Additional Surgical History NONE Additional Family History Clinically noncontributory Alcohol Use Alcohol use Drug Use Marijuana Physical Exam Vital Signs Vital Signs First Documented: Result Date Time Pulse Ox 99 04/ 1650 B/P 145/87 04/ 1650 B/P Mean 106 04/05 1650 O2 Delivery Room air 04/ 1650 Temp 98.9 04/ 1650 Pulse 75 04/ 1650 Resp 18 08/30 1650 Last Documented: Result Date Time Pulse Ox 99 04/ 1650 B/P 145/87 04/ 1650 B/P Mean 106 04/05 1650 O2 Delivery Room air 04/ 1650 Temp 98.9 04/ 1650 Pulse 75 04/ 1650 Resp 18 08/30 1650 Review of Vital Signs Reviewed Basic Physical Exam Basic PE GEN: Well appearing/NAD, HEAD: Atraumatic/NC, EYES: PERRL, conj clear, ENT: Membranes moist, NECK: Supple, RESP: No resp distress, CV: Reg rate rhythm, ABD: Soft/non-tender, EXT: No gross abnormality, SKIN: No rashes, warm/ dry, NEURO: alert oriented, NEURO: gross movement NL, PSYCH: NL thought content Physical Exam General/Const General/Const Awake, Alert, No acute distress, Cooperative, Not toxic appearing Ears/Nose/Throat Ears/Nose/Throat Mucous membranes moist Resp/Chest Respiratory/Chest No respiratory distress MS Back Flank/Spine/Paraspinal Thoracic spine tender. Skin Skin Atraumatic Neurologic Neurologic Oriented X3, Speech NL Psychiatric Psychiatric Affect NL, Mood NL Interpretation Diagnostics Lab Results Interpretation Results Recent Impressions: RADIOLOGY - XR T-SPINE 2 VIEWS 08/30 171 Report Impression - Status: SIGNED Entered: 08/31/2023 180 IMPRESSION: No acute thoracic spine abnormality. Mild levoscoliosis. Impression By: [email or web address] - Frantz Andrews MD Re-Evaluation MDM ED Course Medication(s) Ordered Medication(s) Ordered: Autonomic Drugs Sig/Raffaele Start time Last Medication Dose Route Stop Time Status Admin Orphenadrine Citrate 60 MG X1ED STA 08/30 165 DC 08/30 IM 08/30 165 1745 Central Nervous System Agents Sig/Raffaele Start time Last Medication Dose Route Stop Time Status Admin Ketorolac 60 MG X1ED STA 08/30 1721 DC 08/30 Tromethamine IM 08/30 1722 1745 Ketorolac 60 MG X1ED STA 08/30 1657 CAN Tromethamine IM 08/30 1658 Eye, Ear, Nose And Throat (Een Sig/Raffaele Start time Last Medication Dose Route Stop Time Status Admin Dexamethasone Sodium 10 MG STAT STA 08/30 165 DC 08/30 Phosphate PO 08/30 165 1745 Patient Discharge Departure Vital Signs/Condition Vital Signs First Documented: Result Date Time Pulse Ox 99 08/30 1650 B/P 145/87 08/30 1650 B/P Mean 106 08/30 1650 O2 Delivery Room air 08/30 165 Temp 98.9 08/30 165 Pulse 75 08/30 1650 Resp 18 04/05 1650 Last Documented: Result Date Time Pulse Ox 99 08/30 1649 B/P 145/87 08/30 1649 B/P Mean 106 08/30 1649 O2 Delivery Room air 08/30 1649 Temp 98.9 08/30 1649 Pulse 75 08/30 1649 Resp 18 08/30 1649 All vital signs available at the time of this entry have been reviewed. Clinical Impression Clinical Impression Primary Impression: Thoracic back pain Disposition Decision Discharge )( Discharged to Home Yes )( Time 1824 )( Date 08/31/23 Discharge/Care Plan Counseled Regarding Diagnosis, Imaging studies, Prescriptions, Need for follow- up, When to return to ED (Auto) Prescriptions Current Visit Scripts IBUPROFEN (MOTRIN) 800 MG PO TID PRN PRN PAIN IBUPROFEN (MOTRIN) 800 MG PO TID PRN PRN PAIN #30 TABS METHOCARBAMOL (ROBAXIN) 750 MG PO Q4H 7 Days #42 TABS Patient Instructions ED Back Pain (Acute or Chronic) Discharge Note I have spoken with the patient and/or caregivers. I have explained the patient's condition, diagnoses and treatment plan based on the information available to me at this time. I have answered the patient's and/or caregiver's questions and addressed any concerns. The patient and/or caregivers have as good an understanding of the patient's diagnosis, condition and treatment plan as can be expected at this point. The vital signs have been stable. The patient's condition is stable and appropriate for discharge from the emergency department. The patient will pursue further outpatient evaluation with the primary care physician or other designated or consulting physician as outlined in the discharge instructions. The patient and/or caregivers are agreeable to this plan of care and follow-up instructions have been explained in detail. The patient and/or caregivers have received these instructions in written format and have expressed an understanding of the discharge instructions. The patient and/or caregivers are aware that any significant change in condition or worsening of symptoms should prompt an immediate return to this or the closest emergency department or a call to 911. Dmitriy El 08/31/232129: Patient Discharge Departure Supervising Physician Note Anjel Saw Pt Alone I have reviewed the PA/WIRE LOOP MACHINE OPERATOR's note and plan of care. I was available for consultation as needed at all times during the patient's visit in the emergency department. I agree with the clinical impression, plan and disposition. at 2046 at 2137 [facility] #:[id number] END OF REPORT [facility] 2022-02-21 09:41:00 [facility] ([facility] OR A [facility]AMPUS OF [facility] EMERGENCY PROVIDER REPORT REPORT#:[id number] REPORT STATUS: Signed DATE:02/21/22 TIME: 940 PATIENT: SAI PÉREZ UNIT #: [id number] ROOM/BED: AGE: 21 SEX: M PCP PHYS: No Primary or Family Physician SERVICE AUTHOR: Arturo Carney MD * ALL edits or amendments must be made on the electronic/computer document * HPI-Chest Pain Under 40 Free Text HPI Notes Free Text HPI Notes Was seen approximately 2 weeks ago for rib injury and was diagnosed with rib contusion. He has continued to work. He still has pain. This time his mother brings him in. She states in the past he was seen by another hospital where the doctor told him he did not have any fracture but his father who is not in the medical field looked at the x-ray and told him he had a hairline fracture. They are concerned that we may have missed a fracture on the previous rib series. I ordered a repeat rib series today. General Confirmed Patient Yes Patient Type New patient Initial Greet Date/Time 02/21/22 0853 Presentation Chief Complaint Chest pain Hx Obtained From Patient Sudden in Onset? No Onset Occurred Weeks ago (2) Symptom Duration Waxes and wanes Progression since Onset Waxes and wanes Context of Onset Traumatic injury Location Chest L Quality Painful Radiation No: Does not radiate. )( Migration/Movement None Severity: Onset Mild Severity: Current Mild Associated with Denies: Fever. Associated Other Pt denies other symptoms Exacerbated by Deep breath Relieved by Nothing Risk-Chest Pain Under 40 Risk Stratification )( Coronary Artery Disease Risk factors reviewed )( Pulmonary Embolism Risk factors reviewed )( HEART for MACE )( HEART for MACE Response Value History Low index of suspicion 0 Age Age under 45 0 Risk Factors for CAD No risk factors known 0 Total 0 Review of Systems Basic Review of Systems Basic ROS EYES: No redness, ENT: No sore throat, : No dysuria/frequency, HEM: No bleeding/bruising Focused Review of Systems Constitutional Denies: Chills, Fever. Respiratory Denies: Shortness of breath, Wheezing. Cardiovascular Denies: Edema, Palpitations. Past Medical History - Adult Stated Complaint RIBS Allergies Coded Allergies: No Known Allergies (02/21/22) Home Medications Reported Medications No Known Home Medications Calculated Suicide Risk (nurs) No risk Past Medical History: Denies: Alcoholism/subst abuse, Anemia, Arthritis, Asthma, Cancer, Congestive heart failure, COPD, Coronary artery disease, Dementia, Depression/mood disorder , Diabetes mellitus, GERD/gastritis, Kidney disease/stones, Seizure disorder, Transient ischemic attack, , Abdominal aortic aneurysm, ADD/ADHD, Angina pectoris, Anticoagulant therapy, Bleeding disorder, BPH, C diff colitis, Cardiac dysrhythmias, Chronic pain, Cirrhosis, Congenital anomalies, Dyslipidemia, Gallbladder dis/stones, GI bleed, Glaucoma, Headache disorder, Hepatitis, Intracranial hemorrhage, Ischemic stroke, Motor dysfunction, Pancreatitis, Peptic ulcer disease, Periph arterial disease, Pressure ulcer, Prior [place], Schizophrenia, Sickle cell disease, Steroid use, Thyroid disorder, Transfusion history, Tuberculosis, Urinary tract infection, Venous thromboembolism. Additional Medical History adhd Additional Surgical History NONE Additional Family History Clinically noncontributory Alcohol Use Alcohol use Drug Use Marijuana Smoking status for patients 13 years old or older: Current every day smoker Physical Exam Vital Signs Vital Signs First Documented: Result Date Time Pulse Ox 99 02/21 0855 B/P 143/90 02/21 0855 B/P Mean 107 02/21 0855 Temp 98.0 02/21 855 Pulse 80 02/21 0855 Resp 18 02/21 855 Last Documented: Result Date Time Pulse Ox 99 02/21 0855 B/P 143/90 02/21 0855 B/P Mean 107 02/21 855 Temp 98.0 02/21 855 Pulse 80 02/21 0855 Resp 18 02/21 0855 Review of Vital Signs Reviewed Basic Physical Exam Basic PE HEAD: Atraumatic/NC, EYES: PERRL, conj clear, ENT: Membranes moist, NECK: Supple, ABD: Soft/non-tender, EXT: No gross abnormality, SKIN: No rashes, warm/dry, NEURO: alert oriented, NEURO: gross movement NL Focused PE General/Const General/Const Awake, Alert, No acute distress, Well appearing, Well developed , Well hydrated, Well nourished, Cooperative, Not toxic appearing Resp/Chest Respiratory/Chest Atraumatic, Breath sounds NL, Breath sounds = bilat, No respiratory distress, No rales, No rhonchi, No wheezing, No retractions, No stridor, No chest tenderness, No chest wall deformity, No crepitus Cardiovascular Cardiovascular Heart rate NL, Regular rhythm, Heart sounds NL, No gallop, No murmurs, No rubs, Cap refill not delayed, Peripheral circulation NL, Pulses = bilaterally, No gross BP differential Interpretation Diagnostics Lab Results Interpretation Results Recent Impressions: RADIOLOGY - XR RIBS UNI W/CXR 3+V LT 02/21 0910 Report Impression - Status: SIGNED Entered: 02/21/2022935 IMPRESSION: No evidence of rib fracture or other acute abnormality. Impression By: [email or web address] - Arnav Fishman MD Re-Evaluation MDM Free Text MDM Notes Free Text MDM Notes I did explain the results to both him and his mother who is in the room. He has no rib fracture. I explained the meaning of contusion. Differential Diagnosis Differential Diagnosis Chest pain, acute, Contusion, Rib fracture Patient Discharge Departure Vital Signs/Condition Vital Signs First Documented: Result Date Time Pulse Ox 99 02/21 0855 B/P 143/90 02/21 0855 B/P Mean 107 02/21 0855 Temp 98.0 02/21 0855 Pulse 80 02/21 0855 Resp 18 02/21 0855 Last Documented: Result Date Time Pulse Ox 99 02/21 0855 B/P 143/90 02/21 0855 B/P Mean 107 02/21 0855 Temp 98.0 02/21 0855 Pulse 80 02/21 0855 Resp 18 02/21 0855 All vital signs available at the time of this entry have been reviewed. Condition Stable Clinical Impression Clinical Impression Primary Impression: Rib contusion Disposition Decision Discharge )( Discharged to Home Yes )( Time 0947 )( Date 02/21/22 Discharge/Care Plan Counseled Regarding Diagnosis, Imaging studies, Prescriptions, Need for follow- up, Smoking cessation (Auto) Prescriptions Current Visit Scripts NAPROXEN SODIUM DS (ANAPROX DS) 550 MG PO BID PRN PRN PAIN NAPROXEN SODIUM DS (ANAPROX DS) 550 MG PO BID PRN PRN PAIN #15 TABS Discharge Note I have spoken with the patient and/or caregivers. I have explained the patient's condition, diagnoses and treatment plan based on the information available to me at this time. I have answered the patient's and/or caregiver's questions and addressed any concerns. The patient and/or caregivers have as good an understanding of the patient's diagnosis, condition and treatment plan as can be expected at this point. The vital signs have been stable. The patient's condition is stable and appropriate for discharge from the emergency department. The patient will pursue further outpatient evaluation with the primary care physician or other designated or consulting physician as outlined in the discharge instructions. The patient and/or caregivers are agreeable to this plan of care and follow-up instructions have been explained in detail. The patient and/or caregivers have received these instructions in written format and have expressed an understanding of the discharge instructions. The patient and/or caregivers are aware that any significant change in condition or worsening of symptoms should prompt an immediate return to this or the closest emergency department or a call to 911. Quality Measures BP F/U for HTN Referred for BP f/u < 4wk, F/u with PCP/other doc Tobacco Screening/Cessation Counseled >10 minutes at 0948 RPT #:[id number] END OF REPORT [facility] 2021-01-18 18:34:00 [facility] OR A [facility] OF [facility] EMERGENCY PROVIDER REPORT REPORT#:[id number] REPORT STATUS: Signed DATE:01/18/21 TIME: 1833 PATIENT: SAI PÉREZ UNIT #: [id number] ROOM/BED: AGE: 20 SEX: M PCP PHYS: No Primary or Family Physician SERVICE AUTHOR: Meron Conteh * ALL edits or amendments must be made on the electronic/computer document * HPI-URI/Cough/Cold General Confirmed Patient Yes Patient Type New patient Initial Greet Date/Time 01/18/211833 Presentation Chief Complaint Cough, productive Hx Obtained From Patient Onset Occurred Sudden Free Text HPI Notes Free Text HPI Notes 20-year-old male patient presents to the ED with a chief complaint of coughing. He states that he took a big drive from the cigarette this morning and got choked up, and when he spit up his phlegm there was some blood in the phlegm. That happened early this morning and he has not had any more bleeding since. Review of Systems Free Text ROS Notes Free Text ROS Notes CONSTITUTIONAL: No fever, fatigue or weight loss. SKIN: No rash. HENT: No congestion, ear pain, or sore throat. has blood tinged sputum x1 today. EYES: No recent vision problems or eye pain. ENDOCRINE: No thyroid problems. No polyuria or polydipsia. CARDIOVASCULAR: No chest pain or edema. RESPIRATORY: C/O cough, but shortness of breath, congestion, or wheezing. GASTROINTESTINAL: No abdominal pain, nausea, vomiting, bloody stools or diarrhea. GENITOURINARY: No dysuria. MUSCULOSKELETAL: No joint pain or swelling. LYMPHATIC: No swollen glands. NEUROLOGIC: No seizures. No headache, focal weakness or sensory changes. HEMATOLOGIC: No unusual bruising or bleeding. PSYCHIATRIC: No depression or anxiety. Past Medical History - Adult Stated Complaint COUGHING UP BLOOD, CHEST PAIN Allergies Coded Allergies: No Known Allergies (06/28/20) Home Medications Active Scripts ACETAMINOPHEN/CODEINE (TYLENOL WITH CODEINE #3 300/30 MG) 1 TAB PO Q4H PRN PRN ACUTE PAIN ACETAMINOPHEN/CODEINE (TYLENOL WITH CODEINE #3 300/30 MG) 1 TAB PO Q4H PRN PRN ACUTE PAIN #15 TABS Prov: 11/16/20 Calculated Suicide Risk (nurs) No risk Past Medical History: Denies: Alcoholism/subst abuse, Anemia, Arthritis, Asthma, Cancer, Congestive heart failure, COPD, Coronary artery disease, Dementia, Depression/mood disorder , Diabetes mellitus, GERD/gastritis, Kidney disease/stones, Seizure disorder, Transient ischemic attack, , Abdominal aortic aneurysm, ADD/ADHD, Angina pectoris, Anticoagulant therapy, Bleeding disorder, BPH, C diff colitis, Cardiac dysrhythmias, Chronic pain, Cirrhosis, Congenital anomalies, Dyslipidemia, Gallbladder dis/stones, GI bleed, Glaucoma, Headache disorder, Hepatitis, Intracranial hemorrhage, Ischemic stroke, Motor dysfunction, Pancreatitis, Peptic ulcer disease, Periph arterial disease, Pressure ulcer, Prior [place], Schizophrenia, Sickle cell disease, Steroid use, Thyroid disorder, Transfusion history, Tuberculosis, Urinary tract infection, Venous thromboembolism. Additional Medical History adhd Additional Surgical History NONE Alcohol Use Alcohol use Drug Use Marijuana Smoking status: Smoking status for patients 13 years old or older: Current every day smoker Physical Exam Vital Signs Vital Signs First Documented: Result Date Time Pulse Ox 99 01/18 182 B/P 147/95 01/18 182 B/P Mean 112 01/18 1826 O2 Delivery Room air 01/18 1826 Temp 98.2 01/18 1826 Pulse 79 01/18 1826 Resp 18 01/18 1826 Last Documented: Result Date Time Pulse Ox 99 01/18 1826 B/P 147/95 01/18 1826 B/P Mean 112 01/18 1826 O2 Delivery Room air 01/18 1826 Temp 98.2 01/18 1826 Pulse 79 01/18 1826 Resp 18 01/18 1826 Review of Vital Signs Reviewed Focused PE General/Const General/Const Awake, Alert, No acute distress, Well appearing, Well developed Ears/Nose/Throat Ears/Nose/Throat Atraumatic, Airway patent, Mucous membranes moist, Pharynx NL Resp/Chest Respiratory/Chest Atraumatic, Breath sounds NL, Breath sounds = bilat Free Text PE Notes Free Text PE Notes VITAL SIGNS: Within normal limits. GENERAL: No acute distress, non-toxic appearance. HEAD: Normal with no signs of head trauma. EYES: PERRLA, EOMI, conjunctiva normal, no discharge. EARS: Hearing grossly intact. NOSE: Normal. THROAT: Oropharynx is normal. NECK: Normal range of motion, no tenderness, supple, no lymphadenopathy, No adenopathy, no JVD. CHEST: Clear breath sounds bilaterally. No wheezes, rales, or rhonchi. CARDIAC: Regular rate and rhythm. S1 and S2, without murmurs, gallops, or rubs. VASCULAR: No Edema. Peripheral pulses normal and equal in all extremities. ABDOMEN: Normal and soft with no tenderness, no masses or pulsatile masses. GASTROINTESTINAL: Bowel sounds normal GENITOURINARY: Normal, No tenderness LYMPATHTIC: No lymphadenopathy noted. MUSCULOSKELETAL: Good range of motion of all major joints. Extremities without clubbing, cyanosis or edema. NEUROLOGICAL: Alert and oriented x 3. No focal sensory or strength deficits. Speech normal. Follows commands appropriately. PSYCHIATRIC: Normal Affect, judgement and mood. SKIN: Normal appearance with no rashes or lesions. Patient Discharge Departure Vital Signs/Condition Vital Signs First Documented: Result Date Time Pulse Ox 99 01/18 182 B/P 147/95 01/18 182 B/P Mean 112 01/18 1826 O2 Delivery Room air 01/18 1826 Temp 98.2 01/18 1826 Pulse 79 01/18 1826 Resp 18 01/18 1826 Last Documented: Result Date Time Pulse Ox 99 01/18 1826 B/P 147/95 01/18 182 B/P Mean 112 01/18 1826 O2 Delivery Room air 01/18 1826 Temp 98.2 01/18 1826 Pulse 79 01/18 1826 Resp 18 01/18 1826 All vital signs available at the time of this entry have been reviewed. Condition Stable Clinical Impression Clinical Impression Primary Impression: Cough Secondary Impressions: Blood-tinged sputum Time of Impression 1836 Disposition Decision Discharge )( Discharged to Home Yes )( Time 1836 )( Date 01/18/21 Discharge/Care Plan Patient Instructions ED Cough Chronic Uncertain ..., ED How to Quit Smoking Additional Instructions Stop smoking, this will help improve your cough, follow-up with primary care provider in 1 week if not feeling better, return to ED immediately if have large amount of blood in your sputum. Discharge Note I have spoken with the patient and/or caregivers. I have explained the patient's condition, diagnoses and treatment plan based on the information available to me at this time. I have answered the patient's and/or caregiver's questions and addressed any concerns. The patient and/or caregivers have as good an understanding of the patient's diagnosis, condition and treatment plan as can be expected at this point. The vital signs have been stable. The patient's condition is stable and appropriate for discharge from the emergency department. The patient will pursue further outpatient evaluation with the primary care physician or other designated or consulting physician as outlined in the discharge instructions. The patient and/or caregivers are agreeable to this plan of care and follow-up instructions have been explained in detail. The patient and/or caregivers have received these instructions in written format and have expressed an understanding of the discharge instructions. The patient and/or caregivers are aware that any significant change in condition or worsening of symptoms should prompt an immediate return to this or the closest emergency department or a call to 911. at 1951 RPT #:[id number] END OF REPORT [facility] 2021-01-18 18:34:00 [facility] OR A [facility] OF [facility] EMERGENCY PROVIDER REPORT REPORT#:[id number] REPORT STATUS: Signed DATE:01/18/21 TIME: 1833 PATIENT: SAI PÉREZ UNIT #: [id number] ROOM/BED: AGE: 20 SEX: M PCP PHYS: No Primary or Family Physician SERVICE AUTHOR: Meron Conteh * ALL edits or amendments must be made on the electronic/computer document * Meron Conteh 01/18/211833: HPI-URI/Cough/Cold General Confirmed Patient Yes Patient Type New patient Initial Greet Date/Time 01/18/211833 Presentation Chief Complaint Cough, productive Hx Obtained From Patient Onset Occurred Sudden Free Text HPI Notes Free Text HPI Notes 20-year-old male patient presents to the ED with a chief complaint of coughing. He states that he took a big drive from the cigarette this morning and got choked up, and when he spit up his phlegm there was some blood in the phlegm. That happened early this morning and he has not had any more bleeding since. Review of Systems Free Text ROS Notes Free Text ROS Notes CONSTITUTIONAL: No fever, fatigue or weight loss. SKIN: No rash. HENT: No congestion, ear pain, or sore throat. has blood tinged sputum x1 today. EYES: No recent vision problems or eye pain. ENDOCRINE: No thyroid problems. No polyuria or polydipsia. CARDIOVASCULAR: No chest pain or edema. RESPIRATORY: C/O cough, but shortness of breath, congestion, or wheezing. GASTROINTESTINAL: No abdominal pain, nausea, vomiting, bloody stools or diarrhea. GENITOURINARY: No dysuria. MUSCULOSKELETAL: No joint pain or swelling. LYMPHATIC: No swollen glands. NEUROLOGIC: No seizures. No headache, focal weakness or sensory changes. HEMATOLOGIC: No unusual bruising or bleeding. PSYCHIATRIC: No depression or anxiety. Past Medical History - Adult Stated Complaint COUGHING UP BLOOD, CHEST PAIN Allergies Coded Allergies: No Known Allergies (06/28/20) Home Medications Active Scripts ACETAMINOPHEN/CODEINE (TYLENOL WITH CODEINE #3 300/30 MG) 1 TAB PO Q4H PRN PRN ACUTE PAIN ACETAMINOPHEN/CODEINE (TYLENOL WITH CODEINE #3 300/30 MG) 1 TAB PO Q4H PRN PRN ACUTE PAIN #15 TABS Prov: 11/16/20 Calculated Suicide Risk (nurs) No risk Past Medical History: Denies: Alcoholism/subst abuse, Anemia, Arthritis, Asthma, Cancer, Congestive heart failure, COPD, Coronary artery disease, Dementia, Depression/mood disorder , Diabetes mellitus, GERD/gastritis, Kidney disease/stones, Seizure disorder, Transient ischemic attack, , Abdominal aortic aneurysm, ADD/ADHD, Angina pectoris, Anticoagulant therapy, Bleeding disorder, BPH, C diff colitis, Cardiac dysrhythmias, Chronic pain, Cirrhosis, Congenital anomalies, Dyslipidemia, Gallbladder dis/stones, GI bleed, Glaucoma, Headache disorder, Hepatitis, Intracranial hemorrhage, Ischemic stroke, Motor dysfunction, Pancreatitis, Peptic ulcer disease, Periph arterial disease, Pressure ulcer, Prior [place], Schizophrenia, Sickle cell disease, Steroid use, Thyroid disorder, Transfusion history, Tuberculosis, Urinary tract infection, Venous thromboembolism. Additional Medical History adhd Additional Surgical History NONE Alcohol Use Alcohol use Drug Use Marijuana Smoking status: Smoking status for patients 13 years old or older: Current every day smoker Physical Exam Vital Signs Vital Signs First Documented: Result Date Time Pulse Ox 99 01/18 1826 B/P 147/95 01/18 1826 B/P Mean 112 01/18 1826 O2 Delivery Room air 01/18 1826 Temp 98.2 01/18 182 Pulse 79 01/18 182 Resp 01/18 Last Documented: Result Date Time Pulse Ox 99 01/18 1826 B/P 147/95 01/18 1826 B/P Mean 112 01/18 1826 O2 Delivery Room air 01/18 1826 Temp 98.2 01/18 1826 Pulse 79 01/18 1826 Resp 01/18 Review of Vital Signs Reviewed Focused PE General/Const General/Const Awake, Alert, No acute distress, Well appearing, Well developed Ears/Nose/Throat Ears/Nose/Throat Atraumatic, Airway patent, Mucous membranes moist, Pharynx NL Resp/Chest Respiratory/Chest Atraumatic, Breath sounds NL, Breath sounds = bilat Free Text PE Notes Free Text PE Notes VITAL SIGNS: Within normal limits. GENERAL: No acute distress, non-toxic appearance. HEAD: Normal with no signs of head trauma. EYES: PERRLA, EOMI, conjunctiva normal, no discharge. EARS: Hearing grossly intact. NOSE: Normal. THROAT: Oropharynx is normal. NECK: Normal range of motion, no tenderness, supple, no lymphadenopathy, No adenopathy, no JVD. CHEST: Clear breath sounds bilaterally. No wheezes, rales, or rhonchi. CARDIAC: Regular rate and rhythm. S1 and S2, without murmurs, gallops, or rubs. VASCULAR: No Edema. Peripheral pulses normal and equal in all extremities. ABDOMEN: Normal and soft with no tenderness, no masses or pulsatile masses. GASTROINTESTINAL: Bowel sounds normal GENITOURINARY: Normal, No tenderness LYMPATHTIC: No lymphadenopathy noted. MUSCULOSKELETAL: Good range of motion of all major joints. Extremities without clubbing, cyanosis or edema. NEUROLOGICAL: Alert and oriented x 3. No focal sensory or strength deficits. Speech normal. Follows commands appropriately. PSYCHIATRIC: Normal Affect, judgement and mood. SKIN: Normal appearance with no rashes or lesions. Patient Discharge Departure Vital Signs/Condition Vital Signs First Documented: Result Date Time Pulse Ox 99 01/18 182 B/P 147/95 01/18 182 B/P Mean 112 01/18 182 O2 Delivery Room air 01/18 182 Temp 98.2 01/18 182 Pulse 79 01/18 1826 Resp 18 01/18 1826 Last Documented: Result Date Time Pulse Ox 99 01/18 182 B/P 147/95 01/18 182 B/P Mean 112 01/18 182 O2 Delivery Room air 01/18 182 Temp 98.2 01/18 1826 Pulse 79 01/18 1826 Resp 18 01/18 182 All vital signs available at the time of this entry have been reviewed. Condition Stable Clinical Impression Clinical Impression Primary Impression: Cough Secondary Impressions: Blood-tinged sputum Time of Impression 1836 Disposition Decision Discharge )( Discharged to Home Yes )( Time 183 )( Date 01/18/21 Discharge/Care Plan Patient Instructions ED Cough Chronic Uncertain ..., ED How to Quit Smoking Additional Instructions Stop smoking, this will help improve your cough, follow-up with primary care provider in 1 week if not feeling better, return to ED immediately if have large amount of blood in your sputum. Discharge Note I have spoken with the patient and/or caregivers. I have explained the patient's condition, diagnoses and treatment plan based on the information available to me at this time. I have answered the patient's and/or caregiver's questions and addressed any concerns. The patient and/or caregivers have as good an understanding of the patient's diagnosis, condition and treatment plan as can be expected at this point. The vital signs have been stable. The patient's condition is stable and appropriate for discharge from the emergency department. The patient will pursue further outpatient evaluation with the primary care physician or other designated or consulting physician as outlined in the discharge instructions. The patient and/or caregivers are agreeable to this plan of care and follow-up instructions have been explained in detail. The patient and/or caregivers have received these instructions in written format and have expressed an understanding of the discharge instructions. The patient and/or caregivers are aware that any significant change in condition or worsening of symptoms should prompt an immediate return to this or the closest emergency department or a call to 911. Asif Betancourt 01/27/21 0713: Patient Discharge Departure Supervising Physician Note MidLv Saw Pt Alone I have reviewed the PA/WIRE LOOP MACHINE OPERATOR's note and plan of care. I was available for consultation as needed at all times during the patient's visit in the emergency department. I agree with the clinical impression, plan and disposition. at 1951 at 0714 RPT #:[id number] END OF REPORT [facility] 2020-11-16 18:15:00 [facility] ([facility] OR A [facility]AMPUS OF [facility] EMERGENCY PROVIDER REPORT REPORT#:[id number] REPORT STATUS: Signed DATE:11/16/20 TIME: 1814 PATIENT: SAI PÉREZ UNIT #: [id number] ROOM/BED: AGE: 20 SEX: M PCP PHYS: No Primary or Family Physician SERVICE AUTHOR: John Isbell WIRE LOOP MACHINE OPERATOR * ALL edits or amendments must be made on the electronic/computer document * John Isbell 11/16/201814: HPI-Hand Prob/Inj General Confirmed Patient Yes Patient Type New patient Initial Greet Date/Time 11/16/201810 Presentation Chief Complaint Hand pain L Hx Obtained From Patient Onset Occurred Just prior to arrival Free Text HPI Notes Free Text HPI Notes Patient presents to the emergency department chief complaint is left hand pain status post post punching a wall 1 hour prior to arrival. Patient states he did take pain medication prior to arrival. Patient has previous boxer fracture from punching a wall in his right hand. Review of Systems Free Text ROS Notes Free Text ROS Notes Constitutional: normal mentation, no headache, no recent illnesses HENT: no face, ear, nose, mouth, throat pain Eyes: no eye pain, visual disturbance Respiratory: no shortness of breath, chest wall pain Cardiovascular: no chest pain Gastrointestinal: no nausea, vomiting, abdominal pain Genitourinary: no incontinence during injury Extremity: Left hand pain Skin: Swelling and bruising to left hand Neurological: no numbness, weakness, paresthesia Psychiatric/Behavioral: no confusion, agitation Past Medical History - Adult Stated Complaint LEFT HAND INJURY Allergies Coded Allergies: No Known Allergies (06/28/20) Home Medications Discontinued Scripts DICLOFENAC POTASSIUM (CATAFLAM) 50 MG PO BID DICLOFENAC POTASSIUM (CATAFLAM) 50 MG PO BID #30 TABS Prov: 06/28/20 DC: 11/15/20 0604 DC prior to admit dexAMETHasone 2 MG PO BID 5 Days #10 TABS Prov: 06/28/20 DC: 11/15/20 0604 DC prior to admit Calculated Suicide Risk (nurs) No risk Past Medical History: Denies: Alcoholism/subst abuse, Anemia, Arthritis, Asthma, Cancer, Congestive heart failure, COPD, Coronary artery disease, Dementia, Depression/mood disorder , Diabetes mellitus, GERD/gastritis, Kidney disease/stones, Seizure disorder, Transient ischemic attack, , Abdominal aortic aneurysm, ADD/ADHD, Angina pectoris, Anticoagulant therapy, Bleeding disorder, BPH, C diff colitis, Cardiac dysrhythmias, Chronic pain, Cirrhosis, Congenital anomalies, Dyslipidemia, Gallbladder dis/stones, GI bleed, Glaucoma, Headache disorder, Hepatitis, Intracranial hemorrhage, Ischemic stroke, Motor dysfunction, Pancreatitis, Peptic ulcer disease, Periph arterial disease, Pressure ulcer, Prior [place], Schizophrenia, Sickle cell disease, Steroid use, Thyroid disorder, Transfusion history, Tuberculosis, Urinary tract infection, Venous thromboembolism. Additional Medical History adhd Additional Surgical History NONE Alcohol Use Alcohol use Drug Use Marijuana Smoking status: Smoking status for patients 13 years old or older: Current every day smoker Physical Exam Vital Signs Vital Signs First Documented: Result Date Time Pulse Ox 99 11/17 1803 B/P 159/89 11/17 1803 B/P Mean 112 11/17 1803 O2 Delivery Room air 11/17 1803 Temp 36.8 11/17 1803 Pulse 88 11/17 1803 Resp 16 11/17 1803 Last Documented: Result Date Time Pulse Ox 99 11/16 1909 B/P 144/83 11/16 1909 B/P Mean 103 11/16 1909 O2 Delivery Room air 11/16 1909 Pulse 77 11/16 1909 Resp 18 11/16 1909 Temp 36.8 11/17 1803 Review of Vital Signs Reviewed Basic Physical Exam Basic PE GEN: Well appearing/NAD, HEAD: Atraumatic/NC, EYES: PERRL, conj clear, ENT: Membranes moist, NECK: Supple, RESP: No resp distress, CV: Reg rate rhythm, ABD: Soft/non-tender, LOW EXT: No gross abnl, SKIN: No rashes, warm/dry, NEURO: alert oriented, NEURO: gross movement NL, PSYCH: NL thought content Focused PE General/Const General/Const Awake, Alert, No acute distress, Cooperative, Not toxic appearing MS Wrist/Hand Wrist/Hand Full range of motion, No erythema, No snuffbox tenderness, No deformity, Neurologic intact, Vascular intact Left Hand Swelling present, Tenderness present, Ecchymosis present. Negative: Erythema present, ROM reduced, Deformity present, Open fracture present, Neuro deficit present, Amputation. Skin Skin No rash, Warm, Dry, Intact, BRUISING AND MILD SWELLING TO POSTERIOR MEDIAL LEFT HAND Neurologic Neurologic Oriented X3, Speech NL Procedures Reduction Fracture Start Time 1943 Splint Applic - Fx Mgmt #1 Start Time 1943 Procedure Performed by Planning Supervisor Precise Anatomic Location left hand Custom Immobilization Gutter Definitive Fracture Care Pain control, Splint, Follow up > 24 hrs Post-Procedure/Complications Cap refill normal, Post splint vascular nl, Post splint neuro nl, Condition improved, Tolerated procedure well, Patient stable Patient Discharge Departure Vital Signs/Condition Vital Signs First Documented: Result Date Time Pulse Ox 99 11/17 1803 B/P 159/89 11/17 1803 B/P Mean 112 11/17 1803 O2 Delivery Room air 11/17 1803 Temp 36.8 11/17 1803 Pulse 88 11/17 1803 Resp 16 11/17 1803 Last Documented: Result Date Time Pulse Ox 99 11/16 1909 B/P 144/83 11/16 1909 B/P Mean 103 11/16 1909 O2 Delivery Room air 11/16 1909 Pulse 77 11/16 1909 Resp 18 11/16 1909 Temp 36.8 11/17 1803 All vital signs available at the time of this entry have been reviewed. Clinical Impression Clinical Impression Primary Impression: Left hand fracture Disposition Decision Discharge )( Discharged to Home Yes )( Time 1940 )( Date 11/16/20 Discharge/Care Plan Counseled Regarding Diagnosis, Imaging studies, Need for follow-up, When to return to ED (Auto) Prescriptions Current Visit Scripts ACETAMINOPHEN/CODEINE (TYLENOL WITH CODEINE #3 300/30 MG) 1 TAB PO Q4H PRN PRN ACUTE PAIN ACETAMINOPHEN/CODEINE (TYLENOL WITH CODEINE #3 300/30 MG) 1 TAB PO Q4H PRN PRN ACUTE PAIN #15 TABS Patient Instructions ED Boxer Fracture Additional Instructions Please follow-up with [facility]. Take the prescribed medication as directed. Please leave splint on until cleared by orthopedic doctor. Return to the emergency department for any worsening or alarming symptoms. Discharge Note I have spoken with the patient and/or caregivers. I have explained the patient's condition, diagnoses and treatment plan based on the information available to me at this time. I have answered the patient's and/or caregiver's questions and addressed any concerns. The patient and/or caregivers have as good an understanding of the patient's diagnosis, condition and treatment plan as can be expected at this point. The vital signs have been stable. The patient's condition is stable and appropriate for discharge from the emergency department. The patient will pursue further outpatient evaluation with the primary care physician or other designated or consulting physician as outlined in the discharge instructions. The patient and/or caregivers are agreeable to this plan of care and follow-up instructions have been explained in detail. The patient and/or caregivers have received these instructions in written format and have expressed an understanding of the discharge instructions. The patient and/or caregivers are aware that any significant change in condition or worsening of symptoms should prompt an immediate return to this or the closest emergency department or a call to 911. Arnav Martínez 11/17/20 0053: Interpretation Diagnostics Lab Results Interpretation Results Recent Impressions: RADIOLOGY - XR HAND 3+V LT 11/16 1824 Report Impression - Status: SIGNED Entered: 11/16/20202127 Impression: 1. Fracture of the 5th metacarpal bone. Impression By: Yoshi Tejada MD Patient Discharge Departure Supervising Physician Note MidLv Saw Pt Alone I have reviewed the PA/WIRE LOOP MACHINE OPERATOR's note and plan of care. I was available for consultation as needed at all times during the patient's visit in the emergency department. I agree with the clinical impression, plan and disposition. at 1956 at 0054 RPT #[id number] END OF REPORT [facility] 2020-11-16 18:15:00 [facility] ([facility] OR A [facility] OF [facility] EMERGENCY PROVIDER REPORT REPORT#:[id number] REPORT STATUS: Signed DATE:11/16/20 TIME: 1814 PATIENT: SAI PÉREZ UNIT #: [id number] ROOM/BED: AGE: 20 SEX: M PCP PHYS: No Primary or Family Physician SERVICE AUTHOR: John Isbell NP * ALL edits or amendments must be made on the electronic/computer document * HPI-Hand Prob/Inj General Confirmed Patient Yes Patient Type New patient Initial Greet Date/Time 11/16/201810 Presentation Chief Complaint Hand pain L Hx Obtained From Patient Onset Occurred Just prior to arrival Free Text HPI Notes Free Text HPI Notes Patient presents to the emergency department chief complaint is left hand pain status post post punching a wall 1 hour prior to arrival. Patient states he did take pain medication prior to arrival. Patient has previous boxer fracture from punching a wall in his right hand. Review of Systems Free Text ROS Notes Free Text ROS Notes Constitutional: normal mentation, no headache, no recent illnesses HENT: no face, ear, nose, mouth, throat pain Eyes: no eye pain, visual disturbance Respiratory: no shortness of breath, chest wall pain Cardiovascular: no chest pain Gastrointestinal: no nausea, vomiting, abdominal pain Genitourinary: no incontinence during injury Extremity: Left hand pain Skin: Swelling and bruising to left hand Neurological: no numbness, weakness, paresthesia Psychiatric/Behavioral: no confusion, agitation Past Medical History - Adult Stated Complaint LEFT HAND INJURY Allergies Coded Allergies: No Known Allergies (06/28/20) Home Medications Discontinued Scripts DICLOFENAC POTASSIUM (CATAFLAM) 50 MG PO BID DICLOFENAC POTASSIUM (CATAFLAM) 50 MG PO BID #30 TABS Prov: 06/28/20 DC: 11/15/20 0604 DC prior to admit dexAMETHasone 2 MG PO BID 5 Days #10 TABS Prov: 06/28/20 DC: 11/15/20 0604 DC prior to admit Calculated Suicide Risk (nurs) No risk Past Medical History: Denies: Alcoholism/subst abuse, Anemia, Arthritis, Asthma, Cancer, Congestive heart failure, COPD, Coronary artery disease, Dementia, Depression/mood disorder , Diabetes mellitus, GERD/gastritis, Kidney disease/stones, Seizure disorder, Transient ischemic attack, , Abdominal aortic aneurysm, ADD/ADHD, Angina pectoris, Anticoagulant therapy, Bleeding disorder, BPH, C diff colitis, Cardiac dysrhythmias, Chronic pain, Cirrhosis, Congenital anomalies, Dyslipidemia, Gallbladder dis/stones, GI bleed, Glaucoma, Headache disorder, Hepatitis, Intracranial hemorrhage, Ischemic stroke, Motor dysfunction, Pancreatitis, Peptic ulcer disease, Periph arterial disease, Pressure ulcer, Prior [place], Schizophrenia, Sickle cell disease, Steroid use, Thyroid disorder, Transfusion history, Tuberculosis, Urinary tract infection, Venous thromboembolism. Additional Medical History adhd Additional Surgical History NONE Alcohol Use Alcohol use Drug Use Marijuana Smoking status: Smoking status for patients 13 years old or older: Current every day smoker Physical Exam Vital Signs Vital Signs First Documented: Result Date Time Pulse Ox 99 11/17 1803 B/P 159/89 11/17 1803 B/P Mean 112 11/17 1803 O2 Delivery Room air 11/17 1803 Temp 98.2 11/17 1803 Pulse 88 11/17 1803 Resp 16 11/17 1803 Last Documented: Result Date Time Pulse Ox 99 11/16 1909 B/P 144/83 11/16 1909 B/P Mean 103 11/16 1909 O2 Delivery Room air 11/16 1909 Pulse 77 11/16 1909 Resp 18 11/16 1909 Temp 98.2 11/17 1803 Review of Vital Signs Reviewed Basic Physical Exam Basic PE GEN: Well appearing/NAD, HEAD: Atraumatic/NC, EYES: PERRL, conj clear, ENT: Membranes moist, NECK: Supple, RESP: No resp distress, CV: Reg rate rhythm, ABD: Soft/non-tender, LOW EXT: No gross abnl, SKIN: No rashes, warm/dry, NEURO: alert oriented, NEURO: gross movement NL, PSYCH: NL thought content Focused PE General/Const General/Const Awake, Alert, No acute distress, Cooperative, Not toxic appearing MS Wrist/Hand Wrist/Hand Full range of motion, No erythema, No snuffbox tenderness, No deformity, Neurologic intact, Vascular intact Left Hand Swelling present, Tenderness present, Ecchymosis present. Negative: Erythema present, ROM reduced, Deformity present, Open fracture present, Neuro deficit present, Amputation. Skin Skin No rash, Warm, Dry, Intact, BRUISING AND MILD SWELLING TO POSTERIOR MEDIAL LEFT HAND Neurologic Neurologic Oriented X3, Speech NL Procedures Reduction Fracture Start Time 1943 Splint Applic - Fx Mgmt #1 Start Time 1943 Procedure Performed by Planning Supervisor Precise Anatomic Location left hand Custom Immobilization Gutter Definitive Fracture Care Pain control, Splint, Follow up > 24 hrs Post-Procedure/Complications Cap refill normal, Post splint vascular nl, Post splint neuro nl, Condition improved, Tolerated procedure well, Patient stable Patient Discharge Departure Vital Signs/Condition Vital Signs First Documented: Result Date Time Pulse Ox 99 11/17 1803 B/P 159/89 11/17 1803 B/P Mean 112 11/17 1803 O2 Delivery Room air 11/17 1803 Temp 98.2 11/17 1803 Pulse 88 11/17 1803 Resp 16 11/17 1803 Last Documented: Result Date Time Pulse Ox 99 11/16 1909 B/P 144/83 11/16 1909 B/P Mean 103 11/16 1909 O2 Delivery Room air 11/16 1909 Pulse 77 11/16 1909 Resp 18 11/16 1909 Temp 98.2 11/17 1803 All vital signs available at the time of this entry have been reviewed. Clinical Impression Clinical Impression Primary Impression: Left hand fracture Disposition Decision Discharge )( Discharged to Home Yes )( Time 194 )( Date 11/16/20 Discharge/Care Plan Counseled Regarding Diagnosis, Imaging studies, Need for follow-up, When to return to ED (Auto) Prescriptions Current Visit Scripts ACETAMINOPHEN/CODEINE (TYLENOL WITH CODEINE #3 300/30 MG) 1 TAB PO Q4H PRN PRN ACUTE PAIN ACETAMINOPHEN/CODEINE (TYLENOL WITH CODEINE #3 300/30 MG) 1 TAB PO Q4H PRN PRN ACUTE PAIN #15 TABS Patient Instructions ED Boxer Fracture Additional Instructions Please follow-up with [facility]. Take the prescribed medication as directed. Please leave splint on until cleared by orthopedic doctor. Return to the emergency department for any worsening or alarming symptoms. Discharge Note I have spoken with the patient and/or caregivers. I have explained the patient's condition, diagnoses and treatment plan based on the information available to me at this time. I have answered the patient's and/or caregiver's questions and addressed any concerns. The patient and/or caregivers have as good an understanding of the patient's diagnosis, condition and treatment plan as can be expected at this point. The vital signs have been stable. The patient's condition is stable and appropriate for discharge from the emergency department. The patient will pursue further outpatient evaluation with the primary care physician or other designated or consulting physician as outlined in the discharge instructions. The patient and/or caregivers are agreeable to this plan of care and follow-up instructions have been explained in detail. The patient and/or caregivers have received these instructions in written format and have expressed an understanding of the discharge instructions. The patient and/or caregivers are aware that any significant change in condition or worsening of symptoms should prompt an immediate return to this or the closest emergency department or a call to 911. at 1956 RPT #:[id number] END OF REPORT [facility] 2020-11-15 06:16:00 [facility] OR A [facility] OF [facility] EMERGENCY PROVIDER REPORT REPORT#:[id number] REPORT STATUS: Signed DATE:11/15/20 TIME: 615 PATIENT: SAI PÉREZ UNIT #: [id number] ROOM/BED: AGE: 20 SEX: M PCP PHYS: No Primary or Family Physician SERVICE AUTHOR: Arnav Martínez MD * ALL edits or amendments must be made on the electronic/computer document * HPI-General Illness General Initial Greet Date/Time 11/15/20 0610 Presentation Chief Complaint __ (insect bite/sting) Free Text HPI Notes Free Text HPI Notes 20-year-old male no significant past medical history presents after sustaining a presumed insect bite/sting to the right anterior neck 5 minutes prior to arrival. Patient states he was outside in the dark when he felt a sudden sharp pain in his right anterior neck. He grabbed at the area and felt like he pulled an insect or something off of his neck but was not able to see it due to the dark. There is some swelling to the area and the patient was worried that continued to worsen so he presented immediately for evaluation. No known allergies. Patient has not had any throat swelling, shortness of breath, abdominal pain, nausea, vomiting, diarrhea, dizziness or lightheadedness. Patient is complaining of itching and burning to the area. Review of Systems ROS Statements All systems rev neg except as marked. Past Medical History - Adult Stated Complaint INSECT BITE Allergies Coded Allergies: No Known Allergies (06/28/20) Home Medications Discontinued Scripts DICLOFENAC POTASSIUM (CATAFLAM) 50 MG PO BID DICLOFENAC POTASSIUM (CATAFLAM) 50 MG PO BID #30 TABS Prov: 06/28/20 DC: 11/15/20 0604 DC prior to admit dexAMETHasone 2 MG PO BID 5 Days #10 TABS Prov: 06/28/20 DC: 11/15/20 0604 DC prior to admit Reported Medications No Known Home Medications Calculated Suicide Risk (nurs) No risk Review of Nursing Notes Rev avail, and agree Past Medical History: Denies: Alcoholism/subst abuse, Anemia, Arthritis, Asthma, Cancer, Congestive heart failure, COPD, Coronary artery disease, Dementia, Depression/mood disorder , Diabetes mellitus, GERD/gastritis, Kidney disease/stones, Seizure disorder, Transient ischemic attack, , Abdominal aortic aneurysm, ADD/ADHD, Angina pectoris, Anticoagulant therapy, Bleeding disorder, BPH, C diff colitis, Cardiac dysrhythmias, Chronic pain, Cirrhosis, Congenital anomalies, Dyslipidemia, Gallbladder dis/stones, GI bleed, Glaucoma, Headache disorder, Hepatitis, Intracranial hemorrhage, Ischemic stroke, Motor dysfunction, Pancreatitis, Peptic ulcer disease, Periph arterial disease, Pressure ulcer, Prior [place], Schizophrenia, Sickle cell disease, Steroid use, Thyroid disorder, Transfusion history, Tuberculosis, Urinary tract infection, Venous thromboembolism. Additional Medical History adhd Additional Surgical History NONE Alcohol Use Alcohol use Drug Use Marijuana Smoking status: Smoking status for patients 13 years old or older: Current every day smoker Physical Exam Vital Signs Vital Signs First Documented: Result Date Time Pulse Ox 99 11/15 0556 B/P 142/81 11/15 0556 B/P Mean 101 11/15 0556 O2 Delivery Room air 11/15 0556 Temp 37.0 11/15 05 Pulse 71 11/15 0556 Resp 16 11/15 0556 Last Documented: Result Date Time Pulse Ox 99 11/15 0556 B/P 142/81 11/15 0556 B/P Mean 101 11/15 0556 O2 Delivery Room air 11/15 0556 Temp 37.0 11/16 555 Pulse 71 11/15 0556 Resp 16 11/15 0556 Review of Vital Signs Reviewed Free Text PE Notes Free Text PE Notes Physical Exam: GENERAL: Awake/alert, nontoxic-appearing, no acute distress HEAD: Normocephalic, atraumatic EYES: Vision grossly intact, no discharge EARS: Able to hear spoken voice NOSE: No nasal discharge MOUTH: Mucous membranes moist THROAT: No drooling, no stridor NECK: Supple CV: intact distal pulses, extremities warm and well perfused PULM: Unlabored breathing, speaking full sentences, lungs clear ABD: Soft, nondistended, nontender MSK: No gross deformity SKIN: Warm, dry, right anterior neck with small blanching papule that appears like a mosquito bite PSYCH: Cooperative, normal affect NEURO: Conversant, follows commands, moves all extremities Re-Evaluation MDM Free Text MDM Notes Free Text MDM Notes Presentation is consistent with an insect bite/sting. Appears similar to mosquito bite. After confirming the patient did not drive himself to the emergency department, and gave Benadryl and advised that he can continue the same or use topical antiitch creams. Patient was observed for short period of time in the emergency department without worsening of symptoms. Counseled the patient to return immediately to the emergency department for any new or worsening symptoms. Primary care follow-up. Patient expressed understanding and was discharged in stable condition. ED Course Medication(s) Ordered Medication(s) Ordered: Antihistamine Drugs Sig/Raffaele Start time Last Medication Dose Route Stop Time Status Admin Diphenhydramine HCl 25 MG X1ED STA 11/15 0611 DC 11/15 PO 11/15 06 0619 Patient Discharge Departure Vital Signs/Condition Vital Signs First Documented: Result Date Time Pulse Ox 99 11/15 0556 B/P 142/81 11/15 0556 B/P Mean 101 11/15 0556 O2 Delivery Room air 11/15 0556 Temp 37.0 11/15 0556 Pulse 71 11/15 0556 Resp 16 11/15 0556 Last Documented: Result Date Time Pulse Ox 99 11/15 0556 B/P 142/81 11/15 0556 B/P Mean 101 11/15 0556 O2 Delivery Room air 11/15 0556 Temp 37.0 11/15 0556 Pulse 71 11/15 0556 Resp 16 11/15 0556 All vital signs available at the time of this entry have been reviewed. Condition Stable Clinical Impression Clinical Impression Primary Impression: Insect bite Disposition Decision Discharge )( Discharged to Home Yes )( Time 0616 )( Date 11/15/20 Discharge/Care Plan Counseled Regarding Diagnosis, Need for follow-up, When to return to ED (Auto) Prescriptions Current Visit Scripts No Known Home Medications Patient Instructions ED Insect Bite Referrals PRIMARY CARE: 1-2 Days Discharge Note I have spoken with the patient and/or caregivers. I have explained the patient's condition, diagnoses and treatment plan based on the information available to me at this time. I have answered the patient's and/or caregiver's questions and addressed any concerns. The patient and/or caregivers have as good an understanding of the patient's diagnosis, condition and treatment plan as can be expected at this point. The vital signs have been stable. The patient's condition is stable and appropriate for discharge from the emergency department. The patient will pursue further outpatient evaluation with the primary care physician or other designated or consulting physician as outlined in the discharge instructions. The patient and/or caregivers are agreeable to this plan of care and follow-up instructions have been explained in detail. The patient and/or caregivers have received these instructions in written format and have expressed an understanding of the discharge instructions. The patient and/or caregivers are aware that any significant change in condition or worsening of symptoms should prompt an immediate return to this or the closest emergency department or a call to 911. at 1013 RPT #:[id number] END OF REPORT [facility] 2020-06-28 08:18:00 [id number] [place], [place] PATIENT NAME: SAI PÉREZ ADMIT DATE: 06/28/20 ACCOUNT NO: [id number] ROOM NO: AGE: 20 REPORT TYPE: ELECTROCARDIOGRAM SEX: M : 98 ADMITTING PHYSICIAN: ATTENDING PHYSICIAN:Christos Mina MD Order: [id number] Test Reason : Test Date/Time Stamp: SunJun 28 2020 08:18:53 Blood Pressure : / mmHG Vent. Rate : 059 BPM Atrial Rate : 059 BPM P-R Int : 128 ms QRS Dur : 088 ms QT Int : 392 ms P-R-T Axes : 022 086 055 degrees QTc Int : 388 ms Sinus bradycardia Otherwise normal ECG No previous ECGs available Confirmed by CHRISTOS MINA M.D. ([id number]), newspaper photo editor SOULEYMANE MACIAS ([id number]) on 08/10/2020 11:06:07 AM Referred By: Self Referred Confirmed by:CHRISTOS MINA M.D. at 1106 PATIENT NAME: SAI PÉREZ [facility] 2020-06-28 08:14:00 [facility] OR A [facility]AMPUS OF [facility] EMERGENCY PROVIDER REPORT REPORT#:[id number] REPORT STATUS: Signed DATE:06/28/20 TIME: 0814 PATIENT: SAI PÉREZ UNIT #: [id number] ROOM/BED: AGE: 20 SEX: M PCP PHYS: No Primary or Family Physician SERVICE AUTHOR: Christos Mina MD * ALL edits or amendments must be made on the electronic/computer document * HPI-Chest Pain Under 40 Free Text HPI Notes Free Text HPI Notes Very healthy 20 years old male with a chest pain this morning. Pain is on the sternum itself, worse with coughing and certain movements. He has been having dry cough especially in the morning he attributes to his smoking smokes a pack to pack and cold a day. Dependence if he is working or not he smokes more on the weekends. He also has some drinks this weekend. 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 He has no shortness of breath no fever no chills no nausea no vomiting no diarrhea. Mom is with the patient he was a full-term baby and had no congenital heart disease. No history of sudden in the family. General Confirmed Patient Yes Patient Type New patient Initial Greet Date/Time 06/28/20 0811 Assumed Care at Time 0811 Presentation Chief Complaint Chest pain Hx Obtained From Patient Sudden in Onset? No Radiation No: Does not radiate. )( Migration/Movement None Risk-Chest Pain Under 40 Risk Stratification )( Coronary Artery Disease Risk factors reviewed )( Pulmonary Embolism Risk factors reviewed )( AMI-Aspirin Aspirin Last 24 Hrs Not indicated )( HEART for MACE )( HEART for MACE Response Value History Low index of suspicion 0 ECG Interpretation Normal ECG 0 Age Age under 45 0 Risk Factors for CAD No risk factors known 0 Troponin 1 to 3x NL troponin 1 Total 1 Review of Systems Focused Review of Systems Constitutional Denies: Chills, Fatigue, Fever, Lethargy, Malaise, Recent wt loss, Weakness - generalized. Respiratory Denies: Cough, non-productive, Cough, productive, Dyspnea on exertion, Hemoptysis, Parox nocturnal dyspnea, Pleuritic pain, Shortness of breath, Wheezing. Cardiovascular Reports: Chest pain. Denies: Dyspnea on exertion, Edema, Orthopnea, Palpitations, Parox nocturnal dyspnea, Syncope. GI Denies: Anorexia, Hematochezia, Melena, Nausea, Vomiting. Musculoskeletal Denies: Back pain, Extremity pain, Extremity swelling, Joint pain, Joint swelling, Lumbar pain, Myalgia, Neck pain, Thoracic pain. Neurologic Denies: Change LOC, Confusion. Psychiatric Denies: Anxiety, Change mental status, Confusion, Depression. Past Medical History - Adult Stated Complaint CHEST PAIN Allergies Coded Allergies: No Known Allergies (06/28/20) Home Medications Reported Medications No Known Home Medications Past Medical History: Denies: Alcoholism/subst abuse, Anemia, Arthritis, Asthma, Cancer, Congestive heart failure, COPD, Coronary artery disease, Dementia, Depression/mood disorder , Diabetes mellitus, GERD/gastritis, Kidney disease/stones, Seizure disorder, Transient ischemic attack, , Abdominal aortic aneurysm, ADD/ADHD, Angina pectoris, Anticoagulant therapy, Bleeding disorder, BPH, C diff colitis, Cardiac dysrhythmias, Chronic pain, Cirrhosis, Congenital anomalies, Dyslipidemia, Gallbladder dis/stones, GI bleed, Glaucoma, Headache disorder, Hepatitis, Intracranial hemorrhage, Ischemic stroke, Motor dysfunction, Pancreatitis, Peptic ulcer disease, Periph arterial disease, Pressure ulcer, Prior [place], Schizophrenia, Sickle cell disease, Steroid use, Thyroid disorder, Transfusion history, Tuberculosis, Urinary tract infection, Venous thromboembolism. Additional Medical History adhd Additional Surgical History NONE Alcohol Use Alcohol use Drug Use Marijuana Physical Exam Vital Signs Vital Signs First Documented: Result Date Time Pulse Ox 100 06/28 811 B/P 123/78 06/28 811 B/P Mean 93 06/28 811 O2 Delivery Room air 06/28 811 Temp 36.2 06/28 811 Pulse 69 06/28 811 Resp 16 06/28 811 Last Documented: Result Date Time Pulse Ox 100 06/28 811 B/P 123/78 06/28 811 B/P Mean 93 06/28 811 O2 Delivery Room air 06/28 811 Temp 36.2 06/28 811 Pulse 69 06/28 811 Resp 16 06/28 811 Review of Vital Signs Reviewed, Unavailable Focused PE General/Const General/Const Awake, Alert, No acute distress, Well appearing, Well developed , Well hydrated, Well nourished, Cooperative, Not toxic appearing Eyes Eyes PERRL, EOMI MS Neck Neck Supple, No meningismus Resp/Chest Respiratory/Chest Breath sounds NL, Breath sounds = bilat Cardiovascular Cardiovascular Heart rate NL, Regular rhythm, Heart sounds NL, No gallop, No murmurs, No rubs, Cap refill not delayed, Peripheral circulation NL, Pulses = bilaterally Text/Dict Notes Reproducible pain with palpation of the angle of Tomy Abdomen/GI Abdomen/GI Soft, Non-tender MS Back Back Inspection NL, Full range of motion, Painless range of motion MS Lower Extrem Lower Ext/Pelvis/MS Inspection NL, Full range of motion, No swelling Skin Skin Color NL, No rash, Warm Neurologic Neurologic Oriented X3, Speech NL, No motor deficits, No sensory deficits, CN II - XII intact, Reflexes equal bilat, Cerebellar NL, Memory NL, Gait NL Psychiatric Psychiatric Affect NL, Mood NL, Not suicidal Interpretation Diagnostics Lab Results Interpretation Results Laboratory Tests 06/28/20 0825: [Embedded Image Not Available] Laboratory Tests: 06/28 06/28 0857 0825 Chemistry Sodium (133 - 145 MMOL/L) 141 Potassium (3.6 - 5.2 MMOL/L) 4.4 Chloride (100 - 108 MMOL/L) 105 Carbon Dioxide (22 - 32 MMOL/L) 28 BUN (6 - 20 MG/DL) 13 Creatinine (0.60 - 1.00 MG/DL) 0.91 Estimated GFR (MDRD) (77 - 179) 104 Glucose (65 - 99 MG/DL) 92 Calcium (8.7 - 10.5 MG/DL) 8.8 Troponin I (0.00 - 0.06 NG/ML) < 0.04 Hematology WBC (4.80 - 10.80 x10 3/uL) 8.09 RBC (4.7 - 6.1 x10 6/uL) 5.26 Hgb (14.0 - 17.0 G/DL) 15.4 Hct (42 - 52 %) 45.5 MCV (80 - 94 FL) 86.5 MCH (27 - 31 PG) 29.3 MCHC (33 - 37 G/DL) 33.8 RDW Coeff of Ashley (11.5 - 14.5 %) 13.5 Plt Count (150 - 450 x10 3/uL) 264 MPV (7.4 - 10.4 FL) 10.4 Neut % (Auto) (42 - 86 %) 60.9 Lymph % (Auto) (24 - 44 %) 28.3 [place] % (Auto) (0.0 - 4.0 %) 8.2 H Eos % (Auto) (0.0 - 2.7 %) 2.2 Baso % (Auto) (0.0 - 0.5 %) 0.4 Eos # (Auto) (0.0 - 0.5 x10 3/uL) 0.18 Baso # (Auto) (0.0 - 0.2 x10 3/uL) 0.03 Absolute Neuts (auto) (1.8 - 7.7 x10 3/uL) 4.93 Absolute Lymphs (auto) (1.0 - 4.8 x10 3/uL) 2.29 Absolute Monos (auto) (0.0 - 0.8 x10 3/uL) 0.66 Toxicology Urine Opiates Screen (NEGATIVE) NEGATIVE Ur Barbiturates Screen (NEGATIVE) NEGATIVE Ur Phencyclidine Scrn (NEGATIVE) NEGATIVE Ur Amphetamine Screen (NEGATIVE) NEGATIVE MDMA (NEGATIVE) NEGATIVE U Benzodiazepines Scrn (NEGATIVE) NEGATIVE Urine Cocaine Screen (NEGATIVE) NEGATIVE U Cannabinoids Screen (NEGATIVE) POSITIVE H Urines Ur Spec Description Clean Catch Urine Color (YELLOW) YELLOW Urine Appearance (CLEAR) CLEAR Urine pH (5.5 - 7.0) 8.0 H Ur Specific [place] (1.001 - 1.035) 1.015 Urine Protein (NEGATIVE mg/dL) NEGATIVE Urine Glucose (UA) (NEGATIVE mg/dL) NEGATIVE Urine Ketones (NEGATIVE mg/dL) NEGATIVE Urine Blood (NEGATIVE) NEGATIVE Urine Nitrite (NEGATIVE) NEGATIVE Urine Bilirubin (NEGATIVE) NEGATIVE Urine Urobilinogen (NORMAL mg/dL) NORMAL Ur Leukocyte Esterase (NEGATIVE) TRACE H Urine RBC (NONE SEEN #/hpf) 0-2 H Urine WBC (<10 #/hpf) < 10 Ur Squamous Epith Cells (<100 #/lpf) 0 - 20 Urine Bacteria (NONE SEEN #/hpf) RARE Urine Mucus (NONE SEEN #/lpf) RARE Urine Culture Screen Criteria not met Urine Comment VOLUME 10-12 ML Imaging Statement Radiographic studies reviewed and considered in the medical decision-making. Patient Discharge Departure Vital Signs/Condition Vital Signs First Documented: Result Date Time Pulse Ox 100 06/28 811 B/P 123/78 06/28 811 B/P Mean 93 06/28 811 O2 Delivery Room air 06/28 811 Temp 36.2 06/28 811 Pulse 69 06/28 08 Resp 16 06/28 811 Last Documented: Result Date Time Pulse Ox 100 06/28 811 B/P 123/78 06/28 811 B/P Mean 93 06/28 811 O2 Delivery Room air 06/28 811 Temp 36.2 06/28 811 Pulse 69 06/28 0812 Resp 16 06/28 08 All vital signs available at the time of this entry have been reviewed. Condition Stable, Improved Clinical Impression Clinical Impression Primary Impression: Chest wall pain Disposition Decision Discharge )( Discharged to Home Yes )( Time 1000 )( Date 06/28/20 Discharge/Care Plan (Auto) Prescriptions Current Visit Scripts DICLOFENAC POTASSIUM (CATAFLAM) 50 MG PO BID DICLOFENAC POTASSIUM (CATAFLAM) 50 MG PO BID #30 TABS dexAMETHasone 2 MG PO BID 5 Days #10 TABS Patient Instructions ED Chest Wall Pain, Costochondritis Additional Instructions Rest, you may take at 24 hours off work to recuperate. Dexamethasone course for 3 to 5 days. Diclofenac as needed for pain. Follow-up with your primary care physician in the next week or 2 to reassess. Return to the ED with any complications or concerns at 1004 RPT #:[id number] END OF REPORT [facility] 2020-02-13 23:48:00 [facility] OR A [facility]AMP[facility] OF [facility] EMERGENCY PROVIDER REPORT REPORT#:[id number] REPORT STATUS: Signed DATE:02/13/20 TIME: 2347 PATIENT: SAI PÉREZ UNIT #: [id number] ROOM/BED: AGE: 19 SEX: M PCP PHYS: No Primary or Family Physician SERVICE DT: AUTHOR: Bahmna Leone MD * ALL edits or amendments must be made on the electronic/computer document * HPI-Hand Prob/Inj General Confirmed Patient Yes Patient Type New patient Initial Greet Date/Time 02/13/20 2342 Presentation Chief Complaint Hand pain L, Finger injury L Hx Obtained From Patient Onset Occurred Sudden, Just prior to arrival Symptom Duration Since onset Progression since Onset Unchanged Caused by Blunt injury, Body motion Location: Left Hand Dorsal surface Quality Dull Radiation Does not radiate Severity: Onset Pain level 4 out of 10 Severity: Current Pain level 4 out of 10 Associated with Denies: Cold extremity, Fever, Joint swelling, Neuro symptoms pre-arriv, Numbness, Painful extremity, Rash, Swollen extremity, Weak extremity, Weakness. Associated Other Pt denies other symptoms Exacerbated by Movement, Palpation Context Immunization Status General All up to date Recent Healthcare No recent doctor visit, No recent hospitalization Similar Sx Previous No Review of Systems ROS Statements All systems rev neg except as marked. Focused Review of Systems Constitutional Denies: Chills, Fatigue, Fever, Lethargy, Malaise, Recent wt loss, Weakness - generalized. Musculoskeletal Reports: Extremity pain. Denies: Back pain, Extremity swelling, Joint pain, Joint swelling, Lumbar pain, Myalgia, Neck pain, Thoracic pain. Past Medical History - Adult Stated Complaint BROKE LEFT HAND Allergies Coded Allergies: No Known Allergies (01/09/20) Home Medications Reported Medications No Known Home Medications Review of Nursing Notes Rev avail, and agree Pt reports no significant: Past medical history, Past surgical history, Family history Past Medical History: Denies: Alcoholism/subst abuse, Anemia, Arthritis, Asthma, Atrial fib/flutter, Cancer, Congestive heart failure, COPD, Coronary artery disease, Dementia, Depression/mood disorder, Diabetes mellitus, GERD/gastritis, Kidney disease/ stones, Seizure disorder, Transient ischemic attack, , Abdominal aortic aneurysm, ADD/ADHD, Angina pectoris, Anticoagulant therapy, Bleeding disorder, BPH, C diff colitis, Cardiac dysrhythmias, Chronic pain, Cirrhosis, Congenital anomalies, Dyslipidemia, Gallbladder dis/stones, GI bleed, Glaucoma, Headache disorder, Hepatitis, HIV/AIDS, Intracranial hemorrhage, Ischemic stroke, Motor dysfunction, Pancreatitis, Peptic ulcer disease, Periph arterial disease, Pressure ulcer, Prior [place], Schizophrenia, Sickle cell disease, Steroid use, Thyroid disorder, Transfusion history, Tuberculosis, Urinary tract infection, Venous thromboembolism. Alcohol Use Alcohol use Drug Use Marijuana Smoking status for patients 13 years old or older: Light tobacco smoker Ambulatory Status Independent Physical Exam Vital Signs Vital Signs First Documented: Result Date Time Pulse Ox 99 02/12 2341 B/P 143/78 02/12 2341 B/P Mean 99 02/12 2341 O2 Delivery Room air 02/12 2341 Temp 36.7 02/12 2341 Pulse 78 02/12 2341 Resp 14 02/12 234 Last Documented: Result Date Time Pulse Ox 99 02/12 2341 B/P 143/78 02/12 234 B/P Mean 99 02/12 2341 O2 Delivery Room air 02/12 2341 Temp 36.7 02/12 2341 Pulse 78 02/12 2341 Resp 14 02/12 234 Review of Vital Signs Reviewed, Vital signs normal Basic Physical Exam Basic PE GEN: Well appearing/NAD, HEAD: Atraumatic/NC, EYES: PERRL, conj clear, ENT: Membranes moist, NECK: Supple, RESP: No resp distress, CV: Reg rate rhythm, ABD: Soft/non-tender, LOW EXT: No gross abnl, SKIN: No rashes, warm/dry, NEURO: alert oriented, NEURO: gross movement NL, PSYCH: NL thought content Focused PE General/Const General/Const Awake, Alert, No acute distress, Well appearing, Well developed , Well hydrated, Well nourished, Not toxic appearing MS Wrist/Hand Wrist/Hand Atraumatic, Inspection NL, Full range of motion, No swelling, No erythema, Non-tender, No snuffbox tenderness, No deformity, Neurologic intact, Vascular intact, No ligamentous injury, Tendon function NL, No compartment syndrome, No circumferential injury, No clubbing/cyanosis, No edema Skin Skin Atraumatic, Color NL, No rash, Warm, Dry, Intact, Turgor NL, No swelling Interpretation Diagnostics Lab Results Interpretation Results Recent Impressions: RADIOLOGY - XR HAND 2 V LT 02/12 7375 Report Impression - Status: SIGNED Entered: 02/14/2020 0004 IMPRESSION: No acute findings. INTERNAL CODING PURPOSES ONLY RESULT CODE: CVR Impression By: [email or web address] - Hansel Harley MD [facility] Imaging Statement Radiographic studies reviewed and considered in the medical decision-making. Point of Care Testing Pulse Oximetry Pulse Ox % 99 On: Room air Interpretation Interpreted by me, Pulse oximetry normal Re-Evaluation MDM Re-Evaluation/Progress Re-Evaluation/Progress Re-Eval Status Improved Compartment Syndrome There are no signs or symptoms of compartment syndrome in the injured extremity at the time of this examination. Any pain the patient has is in proportion to the injury, the peripheral circulation is intact, capillary refill is not delayed, and there is no numbness, tingling or paresthesia. ED Course Medication(s) Ordered Medication(s) Ordered: Autonomic Drugs Sig/Raffaele Start time Last Medication Dose Route Stop Time Status Admin Cyclobenzaprine HCl 10 MG X1ED STA 02/12 2348 DC 02/12 PO 02/12 2349 2357 Central Nervous System Agents Sig/Raffaele Start time Last Medication Dose Route Stop Time Status Admin Acetaminophen 1,000 MG X1ED STA 02/12 2348 DC 02/12 PO 02/12 2349 2357 Patient Discharge Departure Vital Signs/Condition Vital Signs First Documented: Result Date Time Pulse Ox 99 02/12 2341 B/P 143/78 02/12 2341 B/P Mean 99 02/12 2341 O2 Delivery Room air 02/12 2341 Temp 36.7 02/12 2341 Pulse 78 02/12 2341 Resp 14 02/12 2341 Last Documented: Result Date Time Pulse Ox 99 02/12 2341 B/P 143/78 02/12 2341 B/P Mean 99 02/12 2341 O2 Delivery Room air 02/12 2341 Temp 36.7 02/12 2341 Pulse 78 02/12 2341 Resp 14 02/12 2341 All vital signs available at the time of this entry have been reviewed. Condition Improved, Stable Clinical Impression Clinical Impression Primary Impression: Contusion of hand, left Disposition Decision Discharge )( Discharged to Home Yes )( Time 2348 )( Date 02/13/20 Discharge/Care Plan Counseled Regarding Diagnosis, Imaging studies, Need for follow-up, When to return to ED (Auto) Prescriptions Current Visit Scripts No Known Home Medications Referrals No Primary or Family Physician (PCP) at 1914 RPT #:[id number] END OF REPORT [facility] 2020-01-09 14:31:00 [facility] OR A [facility] OF [facility] EMERGENCY PROVIDER REPORT REPORT#:[id number] REPORT STATUS: Signed DATE:01/09/20 TIME: 1431 PATIENT: SAI PÉREZ UNIT #: [id number] ROOM/BED: AGE: 19 SEX: M PCP PHYS: No Primary or Family Physician SERVICE AUTHOR: Yaw Wolf * ALL edits or amendments must be made on the electronic/computer document * HPI-Headache General Confirmed Patient Yes Initial Greet Date/Time 01/09/20 1417 Presentation Chief Complaint Headache Sudden in Onset? No Severity: Onset Moderate Severity: Current No pain currently, Pain level 0 out of 10 Context Related History Reports: Closed head injury. Recent Healthcare No recent doctor visit, No recent hospitalization Similar Sx Previous Yes Free Text HPI Notes Free Text HPI Notes 19-year-old smoker ambulatory to the emergency department with complaint of daily headaches since age 7 after falling and "cracking (his) head". He denies neurosurgery. Pain is aching throbbing, sometimes sharp or burning, occurs daily in the time frame of 9 to 11 a.m., on the right side (occipital) of the scalp, and lasts 5 to 6 minutes. He admits the pain. He has not had a formal evaluation by his PCP or headache specialist. He admits coming to the ED today for evaluation because "I have the time now at work." He admits his HAs are no worse recently then in past weeks and months. When the pain occurs he denies blurry vision, nausea vomiting, dizziness, loss of balance, change in hearing. He denies street drug use, seizure disorder, fever, chills, neck pain, earache, rashes on the scalp. Risk-Headache Risk Stratification Stroke No risk factors )( Subarachnoid Hemorrhage No risk factors )( IC Mass Lesion No risk factors Review of Systems ROS Statements All systems rev neg except as marked. Focused Review of Systems Skin Denies: Rash, Swelling. Neurologic Reports: Headache. Denies: Abnormal movement, Bladder dysfunction, Bowel dysfunction, Change LOC, Confusion, Dizziness, Focal weakness, Generalized weakness, Lightheaded, Numbness, Problem walking, Seizure, Shaking, Slurred speech, Spinning sensation, Syncope, Tingling, Unable to speak, Vision change. Past Medical History - Adult Stated Complaint REAL BAG MIGARAINES Allergies Coded Allergies: No Known Allergies (01/09/20) Home Medications Reported Medications No Known Home Medications Review of Nursing Notes Rev avail, and agree Additional Medical History adhd Additional Surgical History NONE Alcohol Use Denies EtOH use Drug Use Denies recreational drugs Smoking status for patients 13 years old or older: Current every day smoker Physical Exam Vital Signs Vital Signs First Documented: Result Date Time Pulse Ox 98 01/08 1404 B/P 139/87 / 1404 B/P Mean 104 01/08 1404 O2 Delivery Room air 01/08 1404 Temp 97.9 01/08 1404 Pulse 75 01/08 1404 Resp 18 01/08 1404 Last Documented: Result Date Time Pulse Ox 98 01/08 1404 B/P 139/87 01/08 1404 B/P Mean 104 01/08 1404 O2 Delivery Room air 01/08 1404 Temp 97.9 01/08 1404 Pulse 75 01/08 1404 Resp 18 01/08 1404 Review of Vital Signs Reviewed Focused PE General/Const General/Const Awake, Alert, No acute distress, Well appearing, Well hydrated, Cooperative, Not toxic appearing MS Head Head Atraumatic, Normocephalic Eyes Eyes PERRL, EOMI, No periorbital redness, No periorbital swelling, No photophobia, No scleral icterus, Conjunctiva NL MS Neck Neck Supple, No adenopathy, No swelling, Non-tender Skin Skin Color NL, No rash, Warm, Dry Neurologic Neurologic Oriented X3, Speech NL, No motor deficits, Memory NL, Gait NL Psychiatric Psychiatric Affect NL, Mood NL, Cognitive function NL, Thought content NL Re-Evaluation MDM Free Text MDM Notes Free Text MDM Notes Pt c/o daily HAs each morning. Presently not having BRISENO. Physical exam is normal. Pt advised to seek PCP or neurology evaluation. Resource guide given. S/sx for ED re-eval discussed. Additional Text The patient presented to the emergency department with a headache. The patient is resting comfortably, is alert, talkative, interactive and in no distress. The patient appears well. The examination is unremarkable and benign. The patient is neurologically intact, has a normal mental status, and is ambulatory in the ED. The history, exam and the patient's current condition do not suggest meningitis, stroke, sepsis, subarachnoid hemorrhage, intracranial bleeding, encephalitis, temporal arteritis or other significant pathology to warrant further testing, continued ED treatment, admission, neurological consultation, or other specialist evaluation at this point. The vital signs have been stable. The patient's condition is stable and appropriate for discharge. The patient will pursue further outpatient evaluation with the primary care physician or other designated or consulting physician as indicated in the discharge instructions. Patient Discharge Departure Vital Signs/Condition Vital Signs First Documented: Result Date Time Pulse Ox 98 01/08 1404 B/P 139/87 / 1404 B/P Mean 104 01/08 1404 O2 Delivery Room air 01/08 1404 Temp 97.9 01/08 1404 Pulse 75 01/08 1404 Resp 18 01/08 1404 Last Documented: Result Date Time Pulse Ox 98 01/08 1404 B/P 139/87 01/08 1404 B/P Mean 104 / 1404 O2 Delivery Room air 01/08 1404 Temp 97.9 01/08 1404 Pulse 75 01/08 1404 Resp 18 01/08 1404 All vital signs available at the time of this entry have been reviewed. Clinical Impression Clinical Impression Primary Impression: Headache Disposition Decision Discharge )( Discharged to Home Yes )( Time 1454 )( Date 01/09/20 Discharge/Care Plan Counseled Regarding Diagnosis, Need for follow-up, Smoking cessation, When to return to ED (Auto) Prescriptions Current Visit Scripts No Known Home Medications Referrals No Primary or Family Physician (PCP) Quality Measures Tobacco Screening/Cessation 18 years or older, Tobacco user, Smoking cessation offered, Declined help, Counseled 3-10 minutes at 1551 RPT #:[id number] END OF REPORT [facility] 2020-01-09 14:31:00 [facility] ([facility] OR A CAMPUS OF [facility] EMERGENCY PROVIDER REPORT REPORT#:[id number] REPORT STATUS: Signed DATE:01/09/20 TIME: 1431 PATIENT: SAI PÉREZ UNIT #: [id number] ROOM/BED: AGE: 19 SEX: M PCP PHYS: No Primary or Family Physician SERVICE AUTHOR: Yaw Wolf * ALL edits or amendments must be made on the electronic/computer document * Yaw Wolf 01/09/20 1431: HPI-Headache General Confirmed Patient Yes Presentation Chief Complaint Headache Sudden in Onset? No Severity: Onset Moderate Severity: Current No pain currently, Pain level 0 out of 10 Context Related History Reports: Closed head injury. Recent Healthcare No recent doctor visit, No recent hospitalization Similar Sx Previous Yes Free Text HPI Notes Free Text HPI Notes 19-year-old smoker ambulatory to the emergency department with complaint of daily headaches since age 7 after falling and "cracking (his) head". He denies neurosurgery. Pain is aching throbbing, sometimes sharp or burning, occurs daily in the time frame of 9 to 11 a.m., on the right side (occipital) of the scalp, and lasts 5 to 6 minutes. He admits the pain. He has not had a formal evaluation by his PCP or headache specialist. He admits coming to the ED today for evaluation because "I have the time now at work." He admits his HAs are no worse recently then in past weeks and months. When the pain occurs he denies blurry vision, nausea vomiting, dizziness, loss of balance, change in hearing. He denies street drug use, seizure disorder, fever, chills, neck pain, earache, rashes on the scalp. Risk-Headache Risk Stratification Stroke No risk factors )( Subarachnoid Hemorrhage No risk factors )( IC Mass Lesion No risk factors Review of Systems ROS Statements All systems rev neg except as marked. Focused Review of Systems Skin Denies: Rash, Swelling. Neurologic Reports: Headache. Denies: Abnormal movement, Bladder dysfunction, Bowel dysfunction, Change LOC, Confusion, Dizziness, Focal weakness, Generalized weakness, Lightheaded, Numbness, Problem walking, Seizure, Shaking, Slurred speech, Spinning sensation, Syncope, Tingling, Unable to speak, Vision change. Past Medical History - Adult Stated Complaint REAL BAG MIGARAINES Allergies Coded Allergies: No Known Allergies (01/09/20) Home Medications Reported Medications No Known Home Medications Review of Nursing Notes Rev avail, and agree Additional Medical History adhd Additional Surgical History NONE Alcohol Use Denies EtOH use Drug Use Denies recreational drugs Smoking status for patients 13 years old or older: Current every day smoker Physical Exam Vital Signs Vital Signs First Documented: Result Date Time Pulse Ox 98 01/08 1404 B/P 139/87 01/08 1404 B/P Mean 104 01/08 1404 O2 Delivery Room air 01/08 1404 Temp 97.9 01/08 1404 Pulse 75 01/08 1404 Resp 18 01/08 1404 Last Documented: Result Date Time Pulse Ox 98 01/08 1404 B/P 139/87 01/08 1404 B/P Mean 104 01/08 1404 O2 Delivery Room air 01/08 1404 Temp 97.9 01/08 1404 Pulse 75 01/08 1404 Resp 18 01/08 1404 Review of Vital Signs Reviewed Focused PE General/Const General/Const Awake, Alert, No acute distress, Well appearing, Well hydrated, Cooperative, Not toxic appearing MS Head Head Atraumatic, Normocephalic Eyes Eyes PERRL, EOMI, No periorbital redness, No periorbital swelling, No photophobia, No scleral icterus, Conjunctiva NL MS Neck Neck Supple, No adenopathy, No swelling, Non-tender Skin Skin Color NL, No rash, Warm, Dry Neurologic Neurologic Oriented X3, Speech NL, No motor deficits, Memory NL, Gait NL Psychiatric Psychiatric Affect NL, Mood NL, Cognitive function NL, Thought content NL Re-Evaluation MDM Free Text MDM Notes Free Text MDM Notes Pt c/o daily HAs each morning. Presently not having BRISENO. Physical exam is normal. Pt advised to seek PCP or neurology evaluation. Resource guide given. S/sx for ED re-eval discussed. Additional Text The patient presented to the emergency department with a headache. The patient is resting comfortably, is alert, talkative, interactive and in no distress. The patient appears well. The examination is unremarkable and benign. The patient is neurologically intact, has a normal mental status, and is ambulatory in the ED. The history, exam and the patient's current condition do not suggest meningitis, stroke, sepsis, subarachnoid hemorrhage, intracranial bleeding, encephalitis, temporal arteritis or other significant pathology to warrant further testing, continued ED treatment, admission, neurological consultation, or other specialist evaluation at this point. The vital signs have been stable. The patient's condition is stable and appropriate for discharge. The patient will pursue further outpatient evaluation with the primary care physician or other designated or consulting physician as indicated in the discharge instructions. Patient Discharge Departure Vital Signs/Condition Vital Signs First Documented: Result Date Time Pulse Ox 98 01/08 1404 B/P 139/87 01/08 1404 B/P Mean 104 01/08 1404 O2 Delivery Room air 01/08 1404 Temp 97.9 01/08 1404 Pulse 75 01/08 1404 Resp 18 01/08 1404 Last Documented: Result Date Time Pulse Ox 98 01/08 1404 B/P 139/87 01/08 1404 B/P Mean 104 01/08 1404 O2 Delivery Room air 01/08 140 Temp 97.9 01/08 1404 Pulse 75 01/08 1404 Resp 18 01/08 1404 All vital signs available at the time of this entry have been reviewed. Clinical Impression Clinical Impression Primary Impression: Headache Disposition Decision Discharge )( Discharged to Home Yes )( Time 1454 )( Date 01/09/20 Discharge/Care Plan Counseled Regarding Diagnosis, Need for follow-up, Smoking cessation, When to return to ED (Auto) Prescriptions Current Visit Scripts No Known Home Medications Referrals No Primary or Family Physician (PCP) Quality Measures Tobacco Screening/Cessation 18 years or older, Tobacco user, Smoking cessation offered, Declined help, Counseled 3-10 minutes Doug Cottrell 01/19/20 1033: HPI-Headache General Initial Greet Date/Time 01/09/20 1417 Patient Discharge Departure Supervising Physician Note MidLv Saw Pt Alone I have reviewed the PA/WIRE LOOP MACHINE OPERATOR's note and plan of care. I was available for consultation as needed at all times during the patient's visit in the emergency department. I agree with the clinical impression, plan and disposition. at 1551 at 1033 RPT #:[id number] END OF REPORT [facility] 2018-12-23 06:04:00 [facility] ([facility] OR A [facility]AMP[facility] OF [facility] EMERGENCY PROVIDER REPORT REPORT#:[id number] REPORT STATUS: Signed DATE:12/23/18 TIME: 603 PATIENT: SAI PÉREZ UNIT #: [id number] ROOM/BED: AGE: 18 SEX: M PCP PHYS: No Primary or Family Physician SERVICE AUTHOR: Vazquez Jones III, MD * ALL edits or amendments must be made on the electronic/computer document * Vazquez Jones iii 12/23/18 0604: HPI-Chest Pain Under 40 Presentation Chief Complaint Pain swelling left breast Hx Obtained From Patient Sudden in Onset? No Onset Occurred Days ago Free Text HPI Notes Free Text HPI Notes 18 yo male with know hx of cyst left breast. Now has pain and swelling. No redness. No fever. No nipple discharge Risk-Chest Pain Under 40 Risk Stratification )( Coronary Artery Disease No risk factors Review of Systems ROS Statements All systems rev neg except as marked. Focused Review of Systems Respiratory Denies: Cough, non-productive, Cough, productive, Hemoptysis, Pleuritic pain. Cardiovascular Denies: Chest pain, Dyspnea on exertion, Edema, Palpitations. GI Denies: Diarrhea, Nausea, Vomiting. Musculoskeletal Denies: Back pain, Thoracic pain. Skin Reports: Swelling. Denies: Erythema, Itching, Jaundice, Rash. Past Medical History - Adult Stated Complaint TENDER LEFT BREAST Allergies Coded Allergies: No Known Allergies (10/29/14) Home Medications Reported Medications No Known Home Medications Additional Medical History adhd Additional Surgical History NONE Smoking status for patients 13 years old or older: Current every day smoker Physical Exam Vital Signs Vital Signs First Documented: Result Date Time Pulse Ox 100 12/23 0555 B/P 138/97 12/23 0555 B/P Mean 110 12/23 0555 O2 Delivery Room air 12/23 0555 Temp 98.1 12/23 0555 Pulse 75 12/23 0555 Resp 18 12/23 0555 Last Documented: Result Date Time Pulse Ox 100 12/23 0555 B/P 138/97 12/23 0555 B/P Mean 110 12/23 0555 O2 Delivery Room air 12/23 0555 Temp 98.1 12/23 0555 Pulse 75 12/23 0555 Resp 18 12/23 0555 Review of Vital Signs Reviewed Focused PE General/Const General/Const Awake, Alert, No acute distress, Well appearing, Well developed , Well hydrated, Well nourished Resp/Chest Respiratory/Chest Breath sounds NL, No respiratory distress, No rales, No rhonchi, No wheezing, obvious assymetry with left breast larger than right. No obvious redness, skin changes, dimpling or breast discharge. No discreet mass palpated. Breast tender to palpation Skin Skin Color NL, No rash, Dry Re-Evaluation MDM ED Course Medication(s) Ordered Medication(s) Ordered: Central Nervous System Agents Sig/Raffaele Start time Last Medication Dose Route Stop Time Status Admin Ketorolac 30 MG X1ED STA 12/23 0603 DC 12/23 Tromethamine IV 12/23 0604 0614 Diagnostic Agents Sig/Raffaele Start time Last Medication Dose Route Stop Time Status Admin Iopamidol 0 .STK-MED ONE 12/23 0642 DC 12/23 IV 0641 Electrolytic, Caloric, And Robin Sig/Raffaele Start time Last Medication Dose Route Stop Time Status Admin Sodium Chloride 1,000 ML X1ED STA 12/23 0603 DC 12/23 IV 12/23 0702 0615 Patient Discharge Departure Vital Signs/Condition Vital Signs First Documented: Result Date Time Pulse Ox 100 12/23 0555 B/P 138/97 12/23 0555 B/P Mean 110 12/23 0555 O2 Delivery Room air 12/23 0555 Temp 98.1 12/23 0555 Pulse 75 12/23 0555 Resp 18 12/23 0555 Last Documented: Result Date Time Pulse Ox 100 12/23 0555 B/P 138/97 12/23 0555 B/P Mean 110 12/23 0555 O2 Delivery Room air 12/23 0555 Temp 98.1 12/23 0555 Pulse 75 12/23 0555 Resp 18 12/23 0555 All vital signs available at the time of this entry have been reviewed. Quirino Rivera 12/23/18 0913: HPI-Chest Pain Under 40 General Confirmed Patient Yes Patient Type New patient Initial Greet Date/Time 12/23/18 0559 Presentation )( Migration/Movement None Portions of this section were scribed by Maria E Schreiber on 12/23/18 at 0913 Risk-Chest Pain Under 40 Risk Stratification )( Pulmonary Embolism Risk factors reviewed )( HEART for MACE )( HEART for MACE Response Value History Low index of suspicion 0 ECG Interpretation Normal ECG 0 Age Age under 45 0 Risk Factors for CAD No risk factors known 0 Total 0 Past Medical History - Adult Review of Nursing Notes Rev avail, and agree Portions of this section were scribed by Maria E Schreiber on 12/23/18 at 0913 Portions of this section were scribed by Maria E Schreiber on 12/23/18 at 0913 Interpretation Diagnostics Lab Results Interpretation Results Laboratory Tests 12/23/18 0612: [Embedded Image Not Available] Laboratory Tests: 12/24 611 Chemistry Sodium (133 - 145 MMOL/L) 140 Potassium (3.6 - 5.2 MMOL/L) 4.4 Chloride (100 - 108 MMOL/L) 107 Carbon Dioxide (22 - 32 MMOL/L) 26 BUN (6 - 20 MG/DL) 15 Creatinine (0.60 - 1.00 MG/DL) 1.01 H Estimated GFR (MDRD) (77 - 179) 94 Glucose (65 - 99 MG/DL) 99 Calcium (8.7 - 10.5 MG/DL) 8.7 Hematology WBC (4.80 - 10.80 x10 3/uL) 8.55 RBC (4.7 - 6.1 x10 6/uL) 5.23 Hgb (14.0 - 17.0 G/DL) 15.3 Hct (42 - 52 %) 44.8 MCV (80 - 94 FL) 85.7 MCH (27 - 31 PG) 29.3 MCHC (33 - 37 G/DL) 34.2 RDW Coeff of Ashley (11.5 - 14.5 %) 12.9 Plt Count (150 - 450 x10 3/uL) 278 MPV (7.4 - 10.4 FL) 10.3 Neut % (Auto) (42 - 86 %) 56.7 Lymph % (Auto) (24 - 44 %) 29.1 [place] % (Auto) (0.0 - 4.0 %) 8.4 H Eos % (Auto) (0.0 - 2.7 %) 5.3 H Baso % (Auto) (0.0 - 0.5 %) 0.5 Eos # (Auto) (0.0 - 0.5 x10 3/uL) 0.45 Baso # (Auto) (0.0 - 0.2 x10 3/uL) 0.04 Absolute Neuts (auto) (1.8 - 7.7 x10 3/uL) 4.85 Absolute Lymphs (auto) (1.0 - 4.8 x10 3/uL) 2.49 Absolute Monos (auto) (0.0 - 0.8 x10 3/uL) 0.72 Add Manual Diff (TECH REVIEW) AUTODIFF VERIFIED Recent Impressions: CAT SCAN - CT CHEST W/CONTRAST 12/23 0645 Report Impression - Status: SIGNED Entered: 12/23/2018 0901 Impression: Asymmetric breast tissue. Workup mammography needed. Please note, study made available for reading 0856 hours Impression By: Angela Peterson MD Portions of this section were scribed by Maria E Schreiber on 12/23/18 at 0913 Re-Evaluation MDM Re-Evaluation/Progress #1 Text/Dict Note Informed pt of CT results. Pt is to follow up with a mammogram. Pt states he is comfortable going home. Time of Re-Eval 0914 Portions of this section were scribed by Maria E Schreiber on 12/23/18 at 0913 Patient Discharge Departure Vital Signs/Condition Condition Stable Clinical Impression Clinical Impression Primary Impression: Breast mass, right Disposition Decision Discharge )( Discharged to Home Yes )( Time 0915 )( Date 12/23/18 Discharge/Care Plan Counseled Regarding Diagnosis, Lab results, Imaging studies, Need for follow-up, When to return to ED Discharge Note I have spoken with the patient and/or caregivers. I have explained the patient's condition, diagnoses and treatment plan based on the information available to me at this time. I have answered the patient's and/or caregiver's questions and addressed any concerns. The patient and/or caregivers have as good an understanding of the patient's diagnosis, condition and treatment plan as can be expected at this point. The vital signs have been stable. The patient's condition is stable and appropriate for discharge from the emergency department. The patient will pursue further outpatient evaluation with the primary care physician or other designated or consulting physician as outlined in the discharge instructions. The patient and/or caregivers are agreeable to this plan of care and follow-up instructions have been explained in detail. The patient and/or caregivers have received these instructions in written format and have expressed an understanding of the discharge instructions. The patient and/or caregivers are aware that any significant change in condition or worsening of symptoms should prompt an immediate return to this or the closest emergency department or a call to 911. Quality Measures BP F/U for HTN BP in normal range Smoking Cessation Screened, tobacco user, Tobacco cess intervention Tobacco Screening/Cessation 18 years or older, Tobacco user, Smoking cessation offered, Counseled 3-10 minutes Smoking Cessation Counseling The patient was questioned regarding their smoking habits, and I have determined , as the patient's treating physician, that there is a medical necessity in regards to the patient's medical condition to provide smoking cessation program education. The patient was advised to stop smoking and counseled for a period of greater than 3 minutes. The patient was instructed to follow up with a primary care physician for smoking cessation and given information regarding local smoking cessation programs in the area. The patient received detailed discharge instructions as to how to stop smoking. The patient expressed an understanding of the need to follow up and the plan for smoking cessation. Supervising Physician Note Scribe Statement Maria E Schreiber, 12/23/18 0917, scribing for and in the presence of [Dr. Rivera]. Signed By: Maria E Schreiber, 12/23/18916 Provider Scribed Statement I personally performed the services described in this documentation and reviewed the documentation that was dictated to the scribe(s) in my presence, and it accurately records my words and actions. Quirino Rivera, 12/23/18 Portions of this section were scribed by Maria E Schreiber on 12/23/18 at 0913 at 0933 RPT #:[id number] END OF REPORT [facility] 2018-12-23 06:04:00 [facility] OR A [facility] OF [facility] EMERGENCY PROVIDER REPORT REPORT#:[id number] REPORT STATUS: Signed DATE:12/23/18 TIME: 603 PATIENT: SAI PÉREZ UNIT #: [id number] ROOM/BED: AGE: 18 SEX: M PCP PHYS: No Primary or Family Physician SERVICE AUTHOR: Vazquez Jones III, MD * ALL edits or amendments must be made on the electronic/computer document * Vazquez Jones iii 12/23/18 0604: HPI-Chest Pain Under 40 General Initial Greet Date/Time 12/23/18 0559 Presentation Chief Complaint Pain swelling left breast Hx Obtained From Patient Sudden in Onset? No Onset Occurred Days ago Free Text HPI Notes Free Text HPI Notes 18 yo male with know hx of cyst left breast. Now has pain and swelling. No redness. No fever. No nipple discharge Risk-Chest Pain Under 40 Risk Stratification )( Coronary Artery Disease No risk factors Review of Systems ROS Statements All systems rev neg except as marked. Focused Review of Systems Respiratory Denies: Cough, non-productive, Cough, productive, Hemoptysis, Pleuritic pain. Cardiovascular Denies: Chest pain, Dyspnea on exertion, Edema, Palpitations. GI Denies: Diarrhea, Nausea, Vomiting. Musculoskeletal Denies: Back pain, Thoracic pain. Skin Reports: Swelling. Denies: Erythema, Itching, Jaundice, Rash. Past Medical History - Adult Stated Complaint TENDER LEFT BREAST Allergies Coded Allergies: No Known Allergies (10/29/14) Home Medications Reported Medications No Known Home Medications Additional Medical History adhd Additional Surgical History NONE Smoking status for patients 13 years old or older: Current every day smoker Physical Exam Vital Signs Review of Vital Signs Reviewed Focused PE General/Const General/Const Awake, Alert, No acute distress, Well appearing, Well developed , Well hydrated, Well nourished Resp/Chest Respiratory/Chest Breath sounds NL, No respiratory distress, No rales, No rhonchi, No wheezing, obvious assymetry with left breast larger than right. No obvious redness, skin changes, dimpling or breast discharge. No discreet mass palpated. Breast tender to palpation Skin Skin Color NL, No rash, Dry Re-Evaluation MDM ED Course Medication(s) Ordered Medication(s) Ordered: Central Nervous System Agents Sig/Raffaele Start time Last Medication Dose Route Stop Time Status Admin Ketorolac 30 MG X1ED STA 12/23 0603 DC 12/23 Tromethamine IV 12/23 0604 0614 Diagnostic Agents Sig/Raffaele Start time Last Medication Dose Route Stop Time Status Admin Iopamidol 0 .STK-MED ONE 12/23 0642 DC 12/23 IV 0641 Electrolytic, Caloric, And Robin Sig/Raffaele Start time Last Medication Dose Route Stop Time Status Admin Sodium Chloride 1,000 ML X1ED STA 12/23 0603 DC 12/23 IV 12/23 0702 0615 Quirino Rivera 12/23/18 0913: HPI-Chest Pain Under 40 General Confirmed Patient Yes Patient Type New patient Presentation )( Migration/Movement None Portions of this section were scribed by Maria E Schreiber on 12/23/18 at 0913 Risk-Chest Pain Under 40 Risk Stratification )( Pulmonary Embolism Risk factors reviewed )( HEART for MACE )( HEART for MACE Response Value History Low index of suspicion 0 ECG Interpretation Normal ECG 0 Age Age under 45 0 Risk Factors for CAD No risk factors known 0 Total 0 Past Medical History - Adult Review of Nursing Notes Rev avail, and agree Portions of this section were scribed by Maria E Schreiber on 12/23/18 at 0913 Physical Exam Vital Signs Vital Signs First Documented: Result Date Time Pulse Ox 100 12/23 0555 B/P 138/97 12/23 0555 B/P Mean 110 12/23 0555 O2 Delivery Room air 12/23 554 Temp 36.7 12/23 05 Pulse 75 12/23 0555 Resp 18 12/23 0555 Last Documented: Result Date Time Pulse Ox 99 12/23 0920 B/P 131/92 12/23 0920 B/P Mean 105 12/23 0920 O2 Delivery Room air 12/23 09 Pulse 69 12/23 09 Resp 16 12/23 09 Temp 36.7 12/23 0555 Portions of this section were scribed by Maria E Schreiber on 12/23/18 at 0913 Interpretation Diagnostics Lab Results Interpretation Results Laboratory Tests 12/23/18 0612: [Embedded Image Not Available] Laboratory Tests: 12/24 611 Chemistry Sodium (133 - 145 MMOL/L) 140 Potassium (3.6 - 5.2 MMOL/L) 4.4 Chloride (100 - 108 MMOL/L) 107 Carbon Dioxide (22 - 32 MMOL/L) 26 BUN (6 - 20 MG/DL) 15 Creatinine (0.60 - 1.00 MG/DL) 1.01 H Estimated GFR (MDRD) (77 - 179) 94 Glucose (65 - 99 MG/DL) 99 Calcium (8.7 - 10.5 MG/DL) 8.7 Hematology WBC (4.80 - 10.80 x10 3/uL) 8.55 RBC (4.7 - 6.1 x10 6/uL) 5.23 Hgb (14.0 - 17.0 G/DL) 15.3 Hct (42 - 52 %) 44.8 MCV (80 - 94 FL) 85.7 MCH (27 - 31 PG) 29.3 MCHC (33 - 37 G/DL) 34.2 RDW Coeff of Ashley (11.5 - 14.5 %) 12.9 Plt Count (150 - 450 x10 3/uL) 278 MPV (7.4 - 10.4 FL) 10.3 Neut % (Auto) (42 - 86 %) 56.7 Lymph % (Auto) (24 - 44 %) 29.1 [place] % (Auto) (0.0 - 4.0 %) 8.4 H Eos % (Auto) (0.0 - 2.7 %) 5.3 H Baso % (Auto) (0.0 - 0.5 %) 0.5 Eos # (Auto) (0.0 - 0.5 x10 3/uL) 0.45 Baso # (Auto) (0.0 - 0.2 x10 3/uL) 0.04 Absolute Neuts (auto) (1.8 - 7.7 x10 3/uL) 4.85 Absolute Lymphs (auto) (1.0 - 4.8 x10 3/uL) 2.49 Absolute Monos (auto) (0.0 - 0.8 x10 3/uL) 0.72 Add Manual Diff (TECH REVIEW) AUTODIFF VERIFIED Recent Impressions: CAT SCAN - CT CHEST W/CONTRAST 12/23 0645 Report Impression - Status: SIGNED Entered: 12/23/2018 0901 Impression: Asymmetric breast tissue. Workup mammography needed. Please note, study made available for reading 0856 hours Impression By: Angela Peterson MD Portions of this section were scribed by Maria E Schreiber on 12/23/18 at 0913 Re-Evaluation MDM Re-Evaluation/Progress #1 Text/Dict Note Informed pt of CT results. Pt is to follow up with a mammogram. Pt states he is comfortable going home. Time of Re-Eval 0914 Portions of this section were scribed by Maria E Schreiber on 12/23/18 at 0913 Patient Discharge Departure Vital Signs/Condition Vital Signs First Documented: Result Date Time Pulse Ox 100 12/23 0555 B/P 138/97 12/23 0555 B/P Mean 110 12/23 0555 O2 Delivery Room air 12/23 0555 Temp 36.7 12/23 0555 Pulse 75 12/23 0555 Resp 18 12/23 0555 Last Documented: Result Date Time Pulse Ox 99 12/23 0920 B/P 131/92 12/23 0920 B/P Mean 105 12/23 0920 O2 Delivery Room air 12/23 09 Pulse 69 12/23 0920 Resp 16 12/23 09 Temp 36.7 12/23 0555 All vital signs available at the time of this entry have been reviewed. Condition Stable Clinical Impression Clinical Impression Primary Impression: Breast mass, right Disposition Decision Discharge )( Discharged to Home Yes )( Time 0915 )( Date 12/23/18 Discharge/Care Plan Counseled Regarding Diagnosis, Lab results, Imaging studies, Need for follow-up, When to return to ED Discharge Note I have spoken with the patient and/or caregivers. I have explained the patient's condition, diagnoses and treatment plan based on the information available to me at this time. I have answered the patient's and/or caregiver's questions and addressed any concerns. The patient and/or caregivers have as good an understanding of the patient's diagnosis, condition and treatment plan as can be expected at this point. The vital signs have been stable. The patient's condition is stable and appropriate for discharge from the emergency department. The patient will pursue further outpatient evaluation with the primary care physician or other designated or consulting physician as outlined in the discharge instructions. The patient and/or caregivers are agreeable to this plan of care and follow-up instructions have been explained in detail. The patient and/or caregivers have received these instructions in written format and have expressed an understanding of the discharge instructions. The patient and/or caregivers are aware that any significant change in condition or worsening of symptoms should prompt an immediate return to this or the closest emergency department or a call to 911. Quality Measures BP F/U for HTN BP in normal range Smoking Cessation Screened, tobacco user, Tobacco cess intervention Tobacco Screening/Cessation 18 years or older, Tobacco user, Smoking cessation offered, Counseled 3-10 minutes Smoking Cessation Counseling The patient was questioned regarding their smoking habits, and I have determined , as the patient's treating physician, that there is a medical necessity in regards to the patient's medical condition to provide smoking cessation program education. The patient was advised to stop smoking and counseled for a period of greater than 3 minutes. The patient was instructed to follow up with a primary care physician for smoking cessation and given information regarding local smoking cessation programs in the area. The patient received detailed discharge instructions as to how to stop smoking. The patient expressed an understanding of the need to follow up and the plan for smoking cessation. Supervising Physician Note Scribe Statement Maria E Schreiber, 12/23/18 7907, scribing for and in the presence of [Dr. Rivera]. Signed By: Maria E Schreiber, 12/23/18 0917 Provider Scribed Statement I personally performed the services described in this documentation and reviewed the documentation that was dictated to the scribe(s) in my presence, and it accurately records my words and actions. Quirino Rivera, 12/23/18 Portions of this section were scribed by Maria E Schreiber on 12/23/18 at 0913 at 0933 at 1916 RPT #:[id number] END OF REPORT [facility] 2018-08-13 05:42:00 [facility] ([facility]) OR A CAMPUS OF [facility] EMERGENCY PROVIDER REPORT REPORT#:[id number] REPORT STATUS: Signed DATE:08/13/18 TIME: 541 PATIENT: SAI PÉREZ UNIT #: [id number] ROOM/BED: AGE: 18 SEX: M PCP PHYS: No Primary or Family Physician SERVICE AUTHOR: Shawn Roa III DO * ALL edits or amendments must be made on the electronic/computer document * HPI-URI/Cough/Cold General Initial Greet Date/Time 08/13/18 0542 Presentation Chief Complaint Cough, non-productive Hx Obtained From Patient Onset Occurred Days ago Symptom Duration Since onset Severity: Onset Mild Severity: Current Mild Associated with Reports: Diarrhea. Denies: Abdominal pain, Chest pain, Fever, Neck pain, Rash. Exacerbated by Nothing Relieved by Nothing Free Text HPI Notes Free Text HPI Notes C/O COUGH FOR DAYS, AND ALSO REPORTS HE HAS AND INSECT BITE ON HIS NECK Review of Systems ROS Statements All systems rev neg except as marked. Basic Review of Systems Basic ROS CV: No chest pain, : No dysuria/frequency, MS: No ext swelling/pain, HEM: No bleeding/bruising, PSYCH: NL thought content Past Medical History - Adult Stated Complaint COUGH, INSECT BITE ON NECK Allergies Coded Allergies: No Known Allergies (10/29/14) Home Medications Reported Medications No Known Home Medications Discontinued Reported Medications LISDEXAMFETAMINE (VYVANSE) 50 MG PO DAILY Review of Nursing Notes Rev avail, and agree Physical Exam Vital Signs Vital Signs First Documented: Result Date Time Pulse Ox 99 08/13 0542 B/P 155/74 08/13 0542 B/P Mean 101 08/13 0542 O2 Delivery Room air 08/13 0542 Temp 36.4 08/13 0542 Pulse 88 08/13 0542 Resp 18 08/13 0542 Last Documented: Result Date Time Pulse Ox 99 08/13 0542 B/P 155/74 08/13 0542 B/P Mean 101 08/13 0542 O2 Delivery Room air 08/13 0542 Temp 36.4 08/13 0542 Pulse 88 08/13 0542 Resp 18 08/13 0542 Review of Vital Signs Reviewed Basic Physical Exam Basic PE HEAD: Atraumatic/NC, EYES: PERRL, conj clear, NECK: Supple, CV: Reg rate rhythm, ABD: Soft/non-tender, EXT: No gross abnormality, SKIN: No rashes, warm/dry, NEURO: alert oriented, NEURO: gross movement NL, PSYCH: NL thought content Focused PE General/Const General/Const Awake, Alert, No acute distress Eyes Eyes Atraumatic, PERRL, EOMI Ears/Nose/Throat Ears/Nose/Throat Atraumatic, Airway patent, Mucous membranes moist, Pharynx NL MS Neck Neck Atraumatic, Supple Resp/Chest Respiratory/Chest Atraumatic, Breath sounds NL, Breath sounds = bilat Cardiovascular Cardiovascular Heart rate NL, Regular rhythm, Heart sounds NL Abdomen/GI Abdomen/GI Atraumatic, Soft, Non-tender Skin Skin Warm, Dry Neurologic Neurologic Oriented X3, Speech NL, No motor deficits, No sensory deficits, CN II - XII intact Patient Discharge Departure Vital Signs/Condition Vital Signs First Documented: Result Date Time Pulse Ox 99 08/13 0542 B/P 155/74 08/13 0542 B/P Mean 101 08/13 0542 O2 Delivery Room air 08/13 0542 Temp 36.4 08/13 0542 Pulse 88 08/13 0542 Resp 18 08/13 0542 Last Documented: Result Date Time Pulse Ox 99 08/13 0542 B/P 155/74 08/13 0542 B/P Mean 101 08/13 0542 O2 Delivery Room air 08/13 0542 Temp 36.4 08/13 0542 Pulse 88 08/13 0542 Resp 18 08/13 0542 All vital signs available at the time of this entry have been reviewed. Clinical Impression Clinical Impression Primary Impression: Upper respiratory infection Secondary Impressions: Insect bite Disposition Decision Discharge )( Discharged to Home Yes )( Time 0543 )( Date 08/13/18 Discharge/Care Plan Counseled Regarding Diagnosis, Prescriptions, Need for follow-up Discharge Note I have spoken with the patient and/or caregivers. I have explained the patient's condition, diagnoses and treatment plan based on the information available to me at this time. I have answered the patient's and/or caregiver's questions and addressed any concerns. The patient and/or caregivers have as good an understanding of the patient's diagnosis, condition and treatment plan as can be expected at this point. The vital signs have been stable. The patient's condition is stable and appropriate for discharge from the emergency department. The patient will pursue further outpatient evaluation with the primary care physician or other designated or consulting physician as outlined in the discharge instructions. The patient and/or caregivers are agreeable to this plan of care and follow-up instructions have been explained in detail. The patient and/or caregivers have received these instructions in written format and have expressed an understanding of the discharge instructions. The patient and/or caregivers are aware that any significant change in condition or worsening of symptoms should prompt an immediate return to this or the closest emergency department or a call to 911. at 0026 [facility] #:[id number] END OF REPORT [facility]
[2025-02-16 12:09] LABS: Absolute Lymphocytes (CBC) 1.7 K/uL (0.7-4.9); Hematocrit 43.8 % (39.6-49.0); Hemoglobin 14.5 g/dL (13.6-17.9); MCH 28.1 pg (27.0-35.0); MCHC 33.1 g/dL (32.0-36.0); MCV 84.9 fL (80-100); MPV 7.8 fL (7.6-11.3); Nucleated RBC Absolute Count 0.0 (0-0); Nucleated Red Blood Cells % 0.1 % (0-0); RBC Red Blood Cell Count 5.16 M/uL (4.33-5.43); White Blood Count 11.60 thou/uL (4.3-10.9)
[2025-02-16] MEDS ORDERED: NA CHLORIDE 0.9% 500 ML ONE (12:11)
[2025-02-16 12:33] LABS: ALT/SGPT 26.0 U/L (16-61); AST/SGOT 13.0 U/L (15-37); Albumin 3.9 g/dL (3.4-5.0); Albumin/Globulin Ratio 1.1 (1.1-1.8); Alkaline Phosphatase 54.0 U/L (45-117); Anion Gap 7.2 mEq/L (5.0-15.0); BUN Blood Urea Nitrogen 9.0 mg/dL (7-18); Globulin 3.7 g/dL (2.3-3.5); Glucose Level 102.0 mg/dL (74-106); Lipase 36.0 U/L (13-75); Potassium 4.2 mEq/L (3.5-5.1)
--- NOTE | 2025-02-16 13:15 | RAD REPORT ---
EXAMINATION: Abdomen Pelvis W Contrast CLINICAL INDICATION: Male, 24 years old.perirectal pain, s/p I D right side, now swelling left TECHNIQUE: CT abdomen and pelvis was performed, after the administration of IV contrast[facility] Axial, sagittal and coronal reconstructions were obtained. One or more of the following dose reduction techniques were used: Automated exposure control, adjustment of the mA and/o r kV according to patient size, and/or iterative reconstruction. Unless otherwise specified, incidental findings do not require dedicated imaging follow-up. [id number]. COMPARISON: 02/01/2025 FINDINGS: LOWER CHEST: No acute process identified.No significant pericardial effusion. UPPER GI: No significant abnormality. LIVER: No significant focal abnormality. GALLBLADDER/BILE DUCTS: No biliary ductal dilatation.? PANCREAS: No mass, ductal dilation, or eun-pancreatic fluid. SPLEEN: Unremarkable. ADRENALS: No adrenal masses. KIDNEYS AND URETERS: No hydronephrosis.No suspicious renal mass. ABDOMINAL AORTA AND OTHER VESSELS: Normal caliber aorta and IVC. PERITONEUM: No abnormal free fluid. No free air. LYMPH NODES: No pathologic lymphadenopathy. ABDOMINAL WALL: Small fat containing umbilical hernia. SMALL BOWEL/COLON: Small bowel has normal course and caliber. No colonic wall thickening or pericolon ic inflammatory changes.Normal appendix. Moderate semiformed stool in the distal sigmoid and rectum. URINARY BLADDER: Underdistended but grossly unremarkable. REPRODUCTIVE ORGANS: No pathologic process. MUSCULOSKELETAL: No acute or suspicious osseous abnormality. ADDITIONAL FINDINGS: Small fluid collection at the left medial buttocks at the gluteal cleft measurin g 15 mm x 5 mm x 12 mm (CC x TV x AP). No evidence of truncation the anus. IMPRESSION: Small superficial fluid collection at the medial left buttocks at the gluteal cleft could represent a small abscess and adjacent cellulitis.
--- NOTE | 2025-02-16 13:27 | ER ---
Nurse's Notes [facility] Name: Vincent Tovar Age: 24 yrs Sex: Male : 2000 Arrival Date: 02/16/2025 Time: 11:14 Bed 5 Private MD: Diagnosis: Cellulitis of buttock;Cutaneous abscess of buttock Presentation: 02/16 11:27 Chief complaint: Patient states: Had an I\\T\\D of buttock abscess beginning of January by Dr. Nogueira. Pt states that two days ago he noticed two more abscesses, possibly 3 in the same location. Coronavirus screen: Client denies travel out of the [place] in the last 14 days. Ebola Screen: Patient denies exposure to infectious person. Patient denies travel to an Ebola-affected area in the 21 days before illness onset. Initial Sepsis Screen: Does the patient meet any 2 criteria? No. Patient's initial sepsis screen is negative. Does the patient have a suspected source of infection? No. Patient's initial sepsis screen is negative. Risk Assessment: Do you want to hurt yourself or someone else? Patient reports no desire to harm self or others. Onset of symptoms was February 14, 2025. 11:27 Method Of Arrival: Ambulatory ss 11:27 Acuity: JULIET 3 Triage Assessment: 11:30 General: Appears in no apparent distress. Behavior is cooperative, appropriate for age, bp anxious. Pain: Complains of pain in buttocks. EENT: No deficits noted. Neuro: No deficits noted. Cardiovascular: No deficits noted. Respiratory: No deficits noted. GI: No signs and/or symptoms were reported involving the gastrointestinal system. : No signs and/or symptoms were reported regarding the genitourinary system. Derm: Abscess located on buttocks is dime sized. Musculoskeletal: No deficits noted. Historical: - Allergies: 11:30 No Known Allergies; ss - PMHx: 11:30 Hypertensive disorder; ss - Immunization history:: Adult Immunizations up to date. - Infectious Disease History:: Denies. - Family history:: not pertinent. - Hospitalizations: : No recent hospitalization is reported. - Social history:: Smoking status: unknown. Screenin:30 [facility] ED Fall Risk Assessment (Adult) History of falling in the last 3 months, bp including since admission No falls in past 3 months (0 pts) Confusion or Disorientation No (0 pts) Intoxicated or Sedated No (0 pts) Impaired Gait No (0 pts) Mobility Assist Device Used No (0 pt) Altered Elimination No (0 pt) Score/Fall Risk Level 0 - 2 = Low Risk Oriented to surroundings. Abuse screen: Denies threats or abuse. Denies injuries from another. Nutritional screening: No deficits noted. Tuberculosis screening: No symptoms or risk factors identified. Assessment: 12:16 Reassessment: Pt became lightheaded after IV insertion/ maintenance and states he has a ss tendency to "pass out" after IV insertions. Dr. Rocha notified. NS administered as ordered. Vital Signs: 11:27 BP 143 / 82; Pulse 85; Resp 15; Pulse Ox 100% on R/A; Weight 58.97 kg; Height 5 ft. 5 ss in. ; Pain 10/10; 12:37 BP 115 / 55; Pulse 84; Resp 17; Pulse Ox 96% ; bp 14:29 BP 139 / 84; Pulse 70; Resp 15; Temp 98.1; Pulse Ox 100% ; bp 11:27 Body Mass Index 21.63 (58.97 kg, 165.1 cm) ss 11:27 Pain Scale: Adult ss ED Course: 11:17 Patient arrived in ED. al6 11:18 Jeff Rocha MD is Attending Physician. rn 11:30 Triage completed. ss 11:30 Arm band placed on right wrist. ss 11:30 Patient has correct armband on for positive identification. bp 11:33 Arnav Khalil, RN is Primary Nurse. bp 12:07 Inserted saline lock: 20 gauge in left antecubital area, using aseptic technique. Blood pm7 collected. Flushed with 10 mL NS. 12:47 CT Abd/Pelvis - IV Contrast Only In Process Unspecified. EDMS 13:26 Christen Jules MD is Hospitalizing Provider. rn 14:30 Provided Education on: NA. bp 14:30 No provider procedures requiring assistance completed. Patient admitted, IV remains in bp place. Administered Medications: 13:24 Discontinued: sodium chloride3 % 500 ml 500 ml IV at bolus once rn 12:16 Drug: Sodium Chloride IV 3 % 500 ml 500 ml IV at bolus once Volume: 500 ml; Route: IV; ss Rate: bolus; Site: left antecubital; 13:38 Follow up: This medication NOT given NS 0.9% 500 mL given rather ss 13:23 Drug: NS 0.9% IV 500 ml 500 ml IV at 1 bolus once; to be given as a bolus over 30 ss minutes Volume: 500 ml; Route: IV; Rate: 1 bolus; Site: left antecubital; 13:32 Follow up: Response: No adverse reaction; IV Status: Completed infusion; IV Intake: jb4 500ml 13:45 Drug: vancoMYCIN IVPB 1 grams IVPB once over 2 hrs Route: IVPB; Infused Over: 2 hrs; jb4 Site: left antecubital; Medication: 14:30 VIS not applicable for this client. bp Intake: 13:32 IV: 500ml; Total: 500ml. jb4 Outcome: 13:26 Decision to Hospitalize by Provider. rn 14:30 Admitted to Med/surg accompanied by tech, via wheelchair, room 210, bp 14:30 Condition: stable 14:30 Instructed on the need for admit, 15:56 Patient left the ED. ss Signatures: Dispatcher [employer] EDMS Jeff Rocha MD MD rn Blanchard, Shelby RN RN Frantz Briceno RN RN Arnav Talamantes RN RN Tammy Almaguer Paige pm7 Corrections: (The following items were deleted from the chart) 13:32 13:32 Response: No adverse reaction; IV Status: Completed infusion jb4 jb4 13:38 13:25 This medication NOT given NS 500 mL given rather ss ss
--- NOTE | 2025-02-16 13:27 | EDPHYS ---
Physician Documentation [facility] Name: Vincent Tovar Age: 24 yrs Sex: Male : 2000 Arrival Date: 02/16/2025 Time: 11:14 Bed 5 Private MD: ED Physician Jeff Rocha HPI: 02/16 12:38 This 24 yrs old Male presents to ER via Ambulatory with complaints of Abscess. rn 12:38 Patient reports had perirectal abscess incision and drainage by Dr. Nogueira 2 weeks ago, rn still taking 1 antibiotic. Noticed increased swelling and pain on opposite side of abscess. No new drainage. Original wound is healing well.. Historical: - Allergies: 11:30 No Known Allergies; ss - PMHx: 11:30 Hypertensive disorder; ss - Immunization history:: Adult Immunizations up to date. - Infectious Disease History:: Denies. - Family history:: not pertinent. - Hospitalizations: : No recent hospitalization is reported. - Social history:: Smoking status: unknown. ROS: 12:38 Constitutional: Negative for fever, chills, and weight loss, Cardiovascular: Negative rn for chest pain, palpitations, and edema, Respiratory: Negative for shortness of breath, cough, wheezing, and pleuritic chest pain, Abdomen/GI: Negative for abdominal pain, nausea, vomiting, diarrhea, and constipation, Skin: Positive for new area of swelling on buttocks Exam: 12:38 Constitutional: This is a well developed, well nourished patient who is awake, alert, rn and in no acute distress. Cardiovascular: Regular rate and rhythm. No pulse deficits. Respiratory: No increased work of breathing, no retractions or nasal flaring. Abdomen/GI: Soft, non-tender, previous site of incision and drainage well appearing, no drainage. No surrounding erythema. On opposite side of gluteal cleft there is a small area of induration with head to it. Vital Signs: 11:27 BP 143 / 82; Pulse 85; Resp 15; Pulse Ox 100% on R/A; Weight 58.97 kg; Height 5 ft. 5 ss in. ; Pain 10/10; 12:37 BP 115 / 55; Pulse 84; Resp 17; Pulse Ox 96% ; bp 14:29 BP 139 / 84; Pulse 70; Resp 15; Temp 98.1; Pulse Ox 100% ; bp 11:27 Body Mass Index 21.63 (58.97 kg, 165.1 cm) ss 11:27 Pain Scale: Adult ss MDM: 11:18 Medical Screening Exam initiated rn 13:25 Differential diagnosis: abscess, cellulitis. Data reviewed: vital signs, nurses notes, international account representative test result(s), radiologic studies, CT scan, and as a result, I will admit patient. Consideration of Admission/Observation Patient was admitted/placed on observation. Escalation of care including admission/observation considered. Management of patient was discussed with the following: Try On Baster: Discussed case with Dr. Nogueira who performed first I\T\D. He will consult on patient and determine if he needs another I\T\D on the other side.. Independent interpretation of the following test(s) in the Emergency Department CT Scan: My interpretation is CT abdomen pelvis images shows small fluid collection right buttocks per my interpretation. Counseling: I had a detailed discussion with the patient and/or guardian regarding the historical points, exam findings, and any diagnostic results supporting the discharge/admit diagnosis, lab results, radiology results, the need for further work-up and treatment in the hospital. Response to treatment: the patient's symptoms have mildly improved after treatment, and as a result, I will admit patient. 02/16 11:45 Order name: CBC with Diff; Complete Time: 12:34 rn 02/16 11:45 Order name: CMP; Complete Time: 12:34 rn 02/16 11:45 Order name: Lipase; Complete Time: 12:34 rn 02/16 14:21 Order name: Basic Metabolic Panel [facility] 02/16 14:21 Order name: Basic Metabolic Panel [facility] 02/16 14:21 Order name: Basic Metabolic Panel [facility] 02/16 14:21 Order name: Basic Metabolic Panel [facility] 02/16 14:21 Order name: CBC with Automated Diff [facility] 02/16 14:21 Order name: CBC with Automated Diff [facility] 02/16 14:21 Order name: CBC with Automated Diff [facility] 02/16 14:21 Order name: CBC with Automated Diff [facility] 02/16 11:45 Order name: CT Abd/Pelvis - IV Contrast Only; Complete Time: 13:18 rn 02/16 14:21 Order name: CONS Physician Consult [facility] 02/16 11:45 Order name: IV Saline Lock; Complete Time: 12:16 rn 02/16 11:45 Order name: Labs collected and sent; Complete Time: 12:16 rn 02/16 11:45 Order name: NPO; Complete Time: 12:16 rn Administered Medications: 13:24 Discontinued: sodium chloride3 % 500 ml 500 ml IV at bolus once rn 12:16 Drug: Sodium Chloride IV 3 % 500 ml 500 ml IV at bolus once Volume: 500 ml; Route: IV; ss Rate: bolus; Site: left antecubital; 13:38 Follow up: This medication NOT given NS 0.9% 500 mL given rather ss 13:23 Drug: NS 0.9% IV 500 ml 500 ml IV at 1 bolus once; to be given as a bolus over 30 ss minutes Volume: 500 ml; Route: IV; Rate: 1 bolus; Site: left antecubital; 13:32 Follow up: Response: No adverse reaction; IV Status: Completed infusion; IV Intake: jb4 500ml 13:45 Drug: vancoMYCIN IVPB 1 grams IVPB once over 2 hrs Route: IVPB; Infused Over: 2 hrs; jb4 Site: left antecubital; Disposition Summary: 02/16/25 13:26 Hospitalization Ordered Notes: Hospitalization Status: Inpatient Admission rn Provider: Christen Jules rn Location: Telemetry/MedSurg (Inpatient) rn Condition: Stable rn Problem: new rn Symptoms: are unchanged rn Bed/Room Type: Standard rn Room Assignment: 411(02/16/25 14:39) bd Diagnosis - Cellulitis of buttock rn - Cutaneous abscess of buttock rn Forms: - Medication Reconciliation Form rn - SBAR form rn - Leadership Thank You Letter rn Signatures: Dispatcher [employer] Kaitlin Pereira bd Jeff Rocha MD MD rn Blanchard, Shelby, RN RN ss Frantz Santos RN RN jb4 Arnav Khalil RN RN bp Corrections: (The following items were deleted from the chart) 14:26 13:26 rn ss 14:39 14:26 210 ss bd
[2025-02-16] MEDS ORDERED: NA CHLORIDE 0.9% 250 ML ONE (13:30)
[2025-02-16] MEDS ORDERED: VANCOMYCIN 1 GM/VIAL ONE (13:31)
[2025-02-16] MEDS ORDERED: ONDANSETRON 4 MG/2 ML VIAL IV PRN (14:15)
--- NOTE | 2025-02-16 14:21 | P.HP ---
Patient History Date of Service: 02/16/25 History of Present Illness: 24-year-old male with a past medical history of high blood pressure and previous gluteal abscess now presenting with abscess and cellulitis of the left buttock at the gluteal cleft. He states he recently had an infection that was treated at office. He states he felt the surrounding skin become inflamed over the course of the last few days. He states he can feel a swelling. He denies fevers, chills, vomiting, diarrhea. He smokes marijuana and vapes with nicotine. He rates the pain at a 9 out of 10. Allergies No Known Allergies Allergy (Unverified 02/01/25 17:44) Home Medications: Ciprofloxacin HCl 500 mg PO BID #20 tab 02/04/25 Hydrocodone 5/APAP 325 [Bunch 5/325] 1 tab PO Q6H PRN #15 tab 02/04/25 metroNIDAZOLE [Flagyl] 500 mg PO Q8H 10 Days #30 tab 02/04/25 - Past Medical/Surgical History -: HTN - Social History Alcohol use: No CD- Drugs: No Review of Systems General: Unremarkable Eyes: Unremarkable ENT: Unremarkable Respiratory: Unremarkable Cardiovascular: Unremarkable Gastrointestinal: Unremarkable Genitourinary: Unremarkable Musculoskeletal: Unremarkable Integumentary: Rash Physical Examination - Physical Exam General: In no apparent distress HEENT: Atraumatic, Normocephalic Neck: 2+ carotid pulse no bruit Respiratory: Clear to auscultation bilaterally Cardiovascular: No edema Capillary refill: <2 Seconds Gastrointestinal: Normal bowel sounds Musculoskeletal: No clubbing - Studies Laboratory Data (last 24 hrs) 02/16/25 02/16/25 12:02 12:02 WBC 11.60 H Hgb 14.5 Hct 43.8 Plt Count 358 Sodium 137 Potassium 4.2 BUN 9 Creatinine 0.85 Glucose 102 Total Bilirubin 0.4 AST 13 L ALT 26 Alkaline Phosphatase 54 Lipase 36 Assessment and Plan - Plan Abscess and cellulitis of the gluteus Hypertension Nicotine dependence Marijuana use Start cefepime and vancomycin and consult Dr. Nogueira Pain control with morphine and Bunch Hydralazine as needed for SBP greater than 160 N.p.o. at midnight Nicotine patch DVT prophylaxis with Lovenox - Advance Directives Does patient have a Living Will: No Does patient have a Durable POA for Healthcare: No
[2025-02-16] MEDS: CEFEPIME 2 GM in NA CHLORIDE 0.9% 100 ML IV SCH (16:15)
--- NOTE | 2025-02-16 18:56 | CON ---
Date of Consultation: 02/16/2025 Reason: Perirectal cellulitis. History Of Present Illness: The patient recently had an I and D done of a perirectal abscess several weeks ago and was recovering well from that, but over the last couple of days, he developed couple a reas of induration with some fluid collection, which was squeezed out by the family member yesterday. However, he developed increasing pain and redness, so he came to the emergency room. He is awake a nd alert. Denies any significant drainage now, but he does have a tender area on the right side of m idline which feels like a small marble and also on the left side above the previous I and D, there is an area of a small may be an insect bite. There is no fever or chills. There is no sore throat, ru nny nose, cough, headaches, dizziness, chest pain. Review of Systems: Otherwise unremarkable. Past Medical History: Hypertension. Past Surgical History: Recent incision, drainage, and debridement of perirectal abscess. Allergies: NEGATIVE. Social History: The patient does smoke and drinks occasionally. Family History: Noncontributory. Physical Examination: Vital Signs: Stable. The patient is afebrile currently. General: He is awake and alert. Head and Neck: No masses. Chest: Clear. Heart: S1, S2. Abdomen: Soft. Extremities: Neurovascularly intact. Neuro: Nonfocal. Rectal: Exam reveals a well-healing wound on the left buttock with area of induration and cellulitis on the right, approximately 1 cm area of induration with surrounding erythema and warmth, another ar ea on the left upper buttock, which is an area of what appears to be a recent insect bite. There is no fluctuance. Laboratory Data: 11.6 with a left shift. Chemistry reviewed. CT of the abdomen and pelvis reviewed , shows small superficial fluid collection in the medial left buttock and the gluteal left cleft, cou ld represent a small abscess and adjacent cellulitis. Assessment: Perirectal infection with some gluteal cellulitis as well. Does not need I and D now. We will continue treatment with warm soaks and antibiotics and re-evaluate the patient in 24 hours an d should it become more fluctuant, the patient may benefit from an I and D. plan of care discussed w ith the patient. /MODL Voice ID: [id number] Report ID: [id number]
[2025-02-16] MEDS: ZOLPIDEM TARTRATE 5 MG TABLET PO PRN (23:28)
[2025-02-17] MEDS: VANCOMYCIN 1 GM in NA CHLORIDE 0.9% 250 ML IVPB SCH (02:00)
[2025-02-17] MEDS: HYDRALAZINE HCL 20 MG/ML VIAL IV PRN (06:06)
[2025-02-17] MEDS: LOSARTAN/HCTZ 50-12.5 PO SCH (08:03)
[2025-02-17] MEDS: HYDROCODONE/APAP 5/325 MG TAB PO PRN (08:04)
[2025-02-17 08:07] LABS: Absolute Lymphocytes (CBC) 2.0 K/uL (0.7-4.9); Hematocrit 45.1 % (39.6-49.0); Hemoglobin 15.1 g/dL (13.6-17.9); MCH 28.4 pg (27.0-35.0); MCHC 33.5 g/dL (32.0-36.0); MCV 84.7 fL (80-100); MPV 8.1 fL (7.6-11.3); Nucleated RBC Absolute Count 0.0 (0-0); Nucleated Red Blood Cells % 0.1 % (0-0); RBC Red Blood Cell Count 5.33 M/uL (4.33-5.43); White Blood Count 11.90 thou/uL (4.3-10.9)
[2025-02-17 08:23] LABS: Anion Gap 8.9 mEq/L (5.0-15.0); BUN Blood Urea Nitrogen 8.0 mg/dL (7-18); Glucose Level 103.0 mg/dL (74-106); Potassium 3.9 mEq/L (3.5-5.1)
[2025-02-17] MEDS: MORPHINE 2 MG/ML SYR IV PRN (09:53)
--- NOTE | 2025-02-17 13:44 | P.PN ---
Date of Service: 02/17/25 Subjective: States he feels rough skin under the wound. He denies fevers and chills states he had a hard time sleeping here in the hospital. His is at bedside. Pain radiates to both gluteues's Review of Systems General: Unremarkable Eyes: Unremarkable ENT: Unremarkable Respiratory: Unremarkable Cardiovascular: Unremarkable Gastrointestinal: Unremarkable Genitourinary: Unremarkable Musculoskeletal: Unremarkable Integumentary: Rash Physical Examination - Physical Exam General: In no apparent distress HEENT: Atraumatic, Normocephalic Neck: 2+ carotid pulse no bruit Respiratory: Clear to auscultation bilaterally Cardiovascular: No edema Capillary refill: <2 Seconds Gastrointestinal: Normal bowel sounds Musculoskeletal: No clubbing - Studies Laboratory Data (last 24 hrs) 02/16/25 02/16/25 12:02 12:02 WBC 11.60 H Hgb 14.5 Hct 43.8 Plt Count 358 Sodium 137 Potassium 4.2 BUN 9 Creatinine 0.85 Glucose 102 Total Bilirubin 0.4 AST 13 L ALT 26 Alkaline Phosphatase 54 Lipase 36 Assessment and Plan Abscess and cellulitis of the gluteus Leukocytosis Hypertension Nicotine dependence Marijuana use 02/17 Continue IV antibiotic Start losartan hydrochlorothiazide Continue pain control Appreciate general surgery recommendations Monitor white count Start cefepime and vancomycin and consult Dr. Nogueira Pain control with morphine and [place] Hydralazine as needed for SBP greater than 160 N.p.o. at midnight Nicotine patch DVT prophylaxis with Lovenox - Advance Directives Does patient have a Living Will: No Does patient have a Durable POA for Healthcare: No
--- NOTE | 2025-02-17 14:12 | PN ---
Date of Progress Note: 02/17/2025 Subjective: The patient is awake, alert. The patient had one episode of feeling warm, but no other symptoms. Objective: Vital Signs: Stable. He is afebrile. Skin: Examination reveals a small amount of fluid collection in the left side of the buttocks with m inimal discharge, a little bit was expressed with gentle pressure. There is the erythema, warmth, an d edema. It appears to be slightly better. There is no further advancement of the disease process. Laboratory Data: Shows a white count of 11.9, there is a slight left shift, but it is improved somew hat. Assessment: Perirectal cellulitis. Recommendations: Continue IV antibiotics and warm soaks. The patient does not need a formal surgica l debridement at this time. We will follow the patient while in the hospital. Hopefully, discharge the patient in 24-48 hours. /MODL Voice ID: [id number] Report ID: [id number]
[2025-02-17] MEDS: ENOXAPARIN 40 MG/0.4 ML SQ SCH (16:19)
[2025-02-18 04:27] LABS: Absolute Lymphocytes (CBC) 1.5 K/uL (0.7-4.9); Hematocrit 48.0 % (39.6-49.0); Hemoglobin 16.3 g/dL (13.6-17.9); MCH 28.6 pg (27.0-35.0); MCHC 34.0 g/dL (32.0-36.0); MCV 84.0 fL (80-100); MPV 8.4 fL (7.6-11.3); Nucleated RBC Absolute Count 0.0 (0-0); Nucleated Red Blood Cells % 0.2 % (0-0); RBC Red Blood Cell Count 5.71 M/uL (4.33-5.43); White Blood Count 12.90 thou/uL (4.3-10.9)
[2025-02-18 04:34] VITALS: BMI 21.9
[2025-02-18 04:50] LABS: Anion Gap 12.7 mEq/L (5.0-15.0); BUN Blood Urea Nitrogen 10.0 mg/dL (7-18); Glucose Level 123.0 mg/dL (74-106); Potassium 3.7 mEq/L (3.5-5.1)
[2025-02-18] MEDS: HYDRALAZINE HCL 25 MG TABLET PO ONE (06:29)
[2025-02-18] MEDS: clonazePAM 0.5 MG TAB PO PRN (08:42)
[2025-02-18] MEDS ORDERED: clonazePAM 0.5 MG TAB PO PRN (08:45)
--- NOTE | 2025-02-18 10:26 | PN ---
Date of Progress Note: 02/18/2025 Subjective: The patient is awake, alert. Pain is better. Objective: Vital Signs: Stable, but he is tachycardic with his heart rate in the 120s. His blood p ressure was high, it has come down a little bit to 147/82. Skin: His examination of his buttocks revealed a little induration, minimal drainage, no fluctuance, nothing that needs surgical incision and drainage at this time in the perirectal region. Laboratory Data: Shows he still has a white count of 12.9, with a left shift. Assessment: Perirectal cellulitis. Recommendations: Continue IV antibiotics. The patient's IV came out last night and he did not want another IV. Therefore, he did not get his last 2 doses of antibiotics. So, we will get up midline o n him and hopefully he can tolerate that better, and continue IV antibiotics. The patient is not jason te ready for discharge yet, maybe another 24-48 hours. However, he does not need any surgical interv ention, at this time, but we will follow him closely. /MODL Voice ID: [id number] Report ID: [id number]
[2025-02-18] MEDS: CEFEPIME 2 GM in NA CHLORIDE 0.9% 100 ML IV SCH (13:07)
[2025-02-18] MEDS: VANCOMYCIN 1.25 GM in NA CHLORIDE 0.9% 250 ML IVPB SCH (14:13)
--- NOTE | 2025-02-18 15:08 | P.PN ---
Date of Service: 02/18/25 Subjective: He is very anxious. His IV malfunctioned last night and he did not receive his last couple of doses of antibiotics. He is asking whether he is going to . His is no longer at bedside. He states the IV is painful. We discussed trying a midline to decrease the pain. In addition we discussed trying anxiety medication. He is in agreement. He denies being in extreme pain. Elevated blood pressures overnight Review of Systems General: Unremarkable Eyes: Unremarkable ENT: Unremarkable Respiratory: Unremarkable Cardiovascular: Unremarkable Gastrointestinal: Unremarkable Genitourinary: Unremarkable Musculoskeletal: Unremarkable Integumentary: Rash Physical Examination - Physical Exam General: In no apparent distress HEENT: Atraumatic, Normocephalic Neck: 2+ carotid pulse no bruit Respiratory: Clear to auscultation bilaterally Cardiovascular: No edema Capillary refill: <2 Seconds Gastrointestinal: Normal bowel sounds Musculoskeletal: No clubbing - Studies Laboratory Data (last 24 hrs) 02/16/25 02/16/25 12:02 12:02 WBC 11.60 H Hgb 14.5 Hct 43.8 Plt Count 358 Sodium 137 Potassium 4.2 BUN 9 Creatinine 0.85 Glucose 102 Total Bilirubin 0.4 AST 13 L ALT 26 Alkaline Phosphatase 54 Lipase 36 Assessment and Plan Abscess and cellulitis of the gluteus Leukocytosis Hypertension Nicotine dependence Marijuana use 02/18 - Midline pending, continue IV antibiotic, leukocytosis persist - Tachycardia differential includes SIRS criteria, - Anxiety/panic attack: Trial Klonopin for panic attack - Appreciate recommendations from Dr. Nogueira - Continue losartan/hydrochlorothiazide. Continue hydralazine as needed 02/17 Continue IV antibiotic Start losartan hydrochlorothiazide Continue pain control Appreciate general surgery recommendations Monitor white count Start cefepime and vancomycin and consult Dr. Nogueira Pain control with morphine and [place] Hydralazine as needed for SBP greater than 160 N.p.o. at midnight Nicotine patch DVT prophylaxis with Lovenox - Advance Directives Does patient have a Living Will: No Does patient have a Durable POA for Healthcare: No
[2025-02-19 05:15] LABS: Absolute Lymphocytes (CBC) 2.6 K/uL (0.7-4.9); Hematocrit 44.9 % (39.6-49.0); Hemoglobin 15.3 g/dL (13.6-17.9); MCH 28.9 pg (27.0-35.0); MCHC 34.1 g/dL (32.0-36.0); MCV 84.7 fL (80-100); MPV 8.1 fL (7.6-11.3); Nucleated RBC Absolute Count 0.0 (0-0); Nucleated Red Blood Cells % 0.2 % (0-0); RBC Red Blood Cell Count 5.30 M/uL (4.33-5.43); White Blood Count 9.00 thou/uL (4.3-10.9)
[2025-02-19 05:31] LABS: Anion Gap 8.3 mEq/L (5.0-15.0); BUN Blood Urea Nitrogen 14.0 mg/dL (7-18); Glucose Level 106.0 mg/dL (74-106); Potassium 4.3 mEq/L (3.5-5.1)
--- NOTE | 2025-02-19 13:25 | P.PN ---
Date of Service: 02/19/25 Subjective: Slept well last night. We discussed 1 more day of IV antibiotics then home with oral. He denies fevers, chills, pain Review of Systems General: Unremarkable Eyes: Unremarkable ENT: Unremarkable Respiratory: Unremarkable Cardiovascular: Unremarkable Gastrointestinal: Unremarkable Genitourinary: Unremarkable Musculoskeletal: Unremarkable Integumentary: Rash Physical Examination - Physical Exam General: In no apparent distress HEENT: Atraumatic, Normocephalic Neck: 2+ carotid pulse no bruit Respiratory: Clear to auscultation bilaterally Cardiovascular: No edema Capillary refill: <2 Seconds Gastrointestinal: Normal bowel sounds Musculoskeletal: No clubbing - Studies Laboratory Data (last 24 hrs) 02/16/25 02/16/25 12:02 12:02 WBC 11.60 H Hgb 14.5 Hct 43.8 Plt Count 358 Sodium 137 Potassium 4.2 BUN 9 Creatinine 0.85 Glucose 102 Total Bilirubin 0.4 AST 13 L ALT 26 Alkaline Phosphatase 54 Lipase 36 Assessment and Plan Abscess and cellulitis of the gluteus Leukocytosis Hypertension Nicotine dependence Marijuana use 02/19 - Blood work reviewed and no abnormalities - Continue IV antibiotics for 1 more day and transition to oral antibiotics tomorrow - Discussed case with Dr. Nogueira - Patient denies pain - Anxiety is now controlled - Follow-up with Dr. Nogueira in 1 week 02/18 - Midline pending, continue IV antibiotic, leukocytosis persist - Tachycardia differential includes SIRS criteria, - Anxiety/panic attack: Trial Klonopin for panic attack - Appreciate recommendations from Dr. Nogueira - Continue losartan/hydrochlorothiazide. Continue hydralazine as needed 02/17 Continue IV antibiotic Start losartan hydrochlorothiazide Continue pain control Appreciate general surgery recommendations Monitor white count Start cefepime and vancomycin and consult Dr. Nogueira Pain control with morphine and [place] Hydralazine as needed for SBP greater than 160 N.p.o. at midnight Nicotine patch DVT prophylaxis with Lovenox - Advance Directives Does patient have a Living Will: No Does patient have a Durable POA for Healthcare: No
--- NOTE | 2025-02-19 13:47 | PN ---
Date of Progress Note: 02/19/2025 Subjective: The patient is awake and alert. No complaints. Objective: Vital Signs: Stable. Afebrile. His heart rate is down to normal. Skin: On exam, his cellulitis has improved. There is no discharge. Wound orders given for the right buttock wound. Cellulitis in the left buttock is much better. Laboratory Data: His white count is normal and there is no left shift. Assessment: Status post perianal, perirectal cellulitis. Recommendations: Continue IV antibiotics for another 24 hours. The patient can be discharged home t omorrow on oral antibiotics, and he can follow up with me in [facility] in 1-2 weeks. Plan of care discussed with the hospitalist. MEHNAZ/JUAN Voice ID: [id number] Report ID: [id number]
[2025-02-19] MEDS: VANCOMYCIN 1.5 GM in NA CHLORIDE 0.9% 500 ML IVPB SCH (14:00)
[2025-02-19 22:48] VITALS: O2SAT 100
[2025-02-20 04:56] VITALS: TEMP 97.8
[2025-02-20 08:26] VITALS: BP 153/95
[2025-02-20] MEDS: SMZ./TMP. 800/160 MG TABLET PO SCH (09:00)
--- NOTE | 2025-02-20 09:56 | P.DS ---
Admission Date: 02/16/25 Discharge Date: 02/20/25 Disposition: ROUTINE DISCHARGE Discharge Condition: GOOD Brief History of Present Illness: 24-year-old male with a past medical history of high blood pressure and previous gluteal abscess now presenting with abscess and cellulitis of the left buttock at the gluteal cleft. He states he recently had an infection that was treated at office. He states he felt the surrounding skin become inflamed ove r the course of the last few days. He states he can feel a swelling. He denies fevers, chills, vomiting, diarrhea. He smokes marijuana and vapes with nicotine. He rates the pain at a 9 out of 10. Upon admission he was started on IV antibiotics. His clinical condition improved over the course of his stay. He has now been transitioned over to Keflex and Bactrim for 10 days. He will follow-up with general surgery. He is medically optimized for discharge. Hospital Course: Physical Examination - Physical Exam General: In no apparent distress HEENT: Atraumatic, Normocephalic Neck: 2+ carotid pulse no bruit Respiratory: Clear to auscultation bilaterally Cardiovascular: No edema Capillary refill: <2 Seconds Gastrointestinal: Normal bowel sounds Musculoskeletal: No clubbing - Studies Laboratory Data (last 24 hrs) 02/16/25 02/16/25 12:02 12:02 WBC 11.60 H Hgb 14.5 Hct 43.8 Plt Count 358 Sodium 137 Potassium 4.2 BUN 9 Creatinine 0.85 Glucose 102 Total Bilirubin 0.4 AST 13 L ALT 26 Alkaline Phosphatase 54 Lipase 36 Assessment and Plan Abscess and cellulitis of the gluteus Leukocytosis Hypertension Nicotine dependence Marijuana use 02/20 -Discharge home with Keflex and Bactrim for 10 days - Follow-up with Dr. Nogueira after 1 week 02/19 - Blood work reviewed and no abnormalities - Continue IV antibiotics for 1 more day and transition to oral antibiotics tomorrow - Discussed case with Dr. Nogueira - Patient denies pain - Anxiety is now controlled - Follow-up with Dr. Nogueira in 1 week 02/18 - Midline pending, continue IV antibiotic, leukocytosis persist - Tachycardia differential includes SIRS criteria, - Anxiety/panic attack: Trial Klonopin for panic attack - Appreciate recommendations from Dr. Nogueira - Continue losartan/hydrochlorothiazide. Continue hydralazine as needed 02/17 Continue IV antibiotic Start losartan hydrochlorothiazide Continue pain control Appreciate general surgery recommendations Monitor white count Start cefepime and vancomycin and consult Dr. Nogueira Pain control with morphine and [place] Hydralazine as needed for SBP greater than 160 N.p.o. at midnight Nicotine patch DVT prophylaxis with Lovenox - Advance Directives Does patient have a Living Will: No Does patient have a Durable POA for Healthcare: No Vital Signs/Physical Exam: Temp Pulse Resp BP Pulse Ox 97.8 F 87 18 153/95 H 100 02/20/25 08:00 02/20/25 08:00 02/20/25 08:00 02/20/25 08:00 02/20/25 08:00 Laboratory Data at Discharge: WBC 9.00 thou/uL (4.3-10.9) 02/19/25 05:04 Hgb 15.3 g/dL (13.6-17.9) 02/19/25 05:04 Hct 44.9 % (39.6-49.0) 02/19/25 05:04 Plt Count 318 thou/uL (152-406) 02/19/25 05:04 Sodium 137 mEq/L (136-145) 02/19/25 05:04 Potassium 4.3 mEq/L (3.5-5.1) D 02/19/25 05:04 BUN 14 mg/dL (7-18) 02/19/25 05:04 Creatinine 0.95 mg/dL (0.70-1.30) 02/19/25 05:04 Glucose 106 mg/dL (74-106) 02/19/25 05:04 Total Bilirubin 0.4 mg/dL (0.2-1.0) 02/16/25 12:02 AST 13 U/L (15-37) L 02/16/25 12:02 ALT 26 U/L (16-61) 02/16/25 12:02 Alkaline Phosphatase 54 U/L (45-117) 02/16/25 12:02 Lipase 36 U/L (13-75) 02/16/25 12:02 Home Medications: Cephalexin [Keflex] 500 mg PO BID 10 Days #20 cap 02/20/25 Losartan/Hydrochlorothiazide [Losartan-Hctz 50-12.5 mg Tab] 1 each PO DAILY 30 Days #30 tab 02/20/25 Smz./Tmp. [Bactrim Ds 800 MG/160 MG*] 1 tab PO BID 10 Days #20 tab 02/20/25 New Medications: Smz./Tmp. [Bactrim Ds 800 MG/160 MG*] 1 tab PO BID 10 Days #20 tab Cephalexin [Keflex] 500 mg PO BID 10 Days #20 cap Losartan/Hydrochlorothiazide [Losartan-Hctz 50-12.5 mg Tab] 1 each PO DAILY 30 Days #30 tab Physician Discharge Instructions: Wet-to-dry normal saline dressing changes to right buttock wound daily Follow-up in the wound healing center in my clinic in 1 to 2 weeks, call for appointment Antibiotics per hospitalist team Diet: Regular Activity: No lifting more than 10 lbs Followup: NONE,NONE [Primary Care Provider] - Carmelo Nogueira MD [ACTIVE - CAN ADMIT] - 1-2 Weeks
[2025-02-20] MEDS ORDERED: CEPHALEXIN 250 MG CAP PO SCH (12:00)
== END 2025-02-20 10:15 | disposition home or self-care (01) | DRG 603 ==
LOC: ER 11:14 → 2ND 14:15 → 4TH 14:41
PROVIDERS: ADMIT Family Medicine; ATTEND Family Medicine
PROC: 02HV33Z Insertion of Infusion Device into Superior Vena Cava, Percutaneous Approach (ICD-10-PCS; principal; 2025-02-18)
DX: L03.317 Cellulitis of buttock (principal); L02.31 Cutaneous abscess of buttock; I10 Essential (primary) hypertension; F41.9 Anxiety disorder, unspecified; F17.290 Nicotine dependence, other tobacco product, uncomplicated; R00.0 Tachycardia, unspecified
CPT/HCPCS: 36415; 74177; 80048; 80053; 80202; 83690; 85025; 96374; 99285; J0360; J0692; J1650; J2270; J3373; J7040; J7050; Q9967